=== PATIENT | female | born 1985 | race Caucasian/White ===

== ENCOUNTER → 2016-12-13 | Outpatient (CLI) | payer OTHER ==
--- NOTE | 2016-12-13 17:56 | US ---
EXAMINATION TYPE: US thyroid st tissue head/neck DATE OF EXAM: 12/13/2016 COMPARISON: US CLINICAL HISTORY: Nontoxic Single Thyroid nodule E04.1. GLAND SIZE: Right Lobe: 4.3 x 1.6 x 1.6 cm Overall Parenchyma: heterogenous Left Lobe: 4.1 x 1.5 x 1.4 cm Overall Parenchyma: heterogeneous Isthmus Thickness: 0.4 cm NODULES RIGHT: # of nodules measured on right: 0 LEFT: # of nodules measured on left: 1 1. 0.6 X 0.4 x 0.6 cm hypoechoic solid nodule at the mid/lateral pole with margins. This nodule is wider than tall and shows no intranodular vascularity. Prior size: x x cm ISTHMUS: # of nodules measured in the isthmus: 0 Bilateral neck scanned, no evidence of lymphadenopathy. IMPRESSION: There is a 6 x 4 mm oval-shaped hypoechoic nodule in the posterior left thyroid lobe that is new comp ared to old ultrasound exam on 12/04/2014. No solid thyroid mass. No dominant thyroid mass. It is poss ible this is a parathyroid gland. I have low suspicion of malignancy.
== END | disposition home or self-care (01) ==
LOC: RADUSWWP 17:04
PROVIDERS: ATTEND Family Medicine
DX: E04.1 Nontoxic single thyroid nodule (principal); E06.3 Autoimmune thyroiditis
CPT/HCPCS: 76536

== ENCOUNTER 2016-12-26 15:19 | Emergency (ER) | payer OTHER ==
[2016-12-26 15:25] VITALS: TEMP 98
--- NOTE | 2016-12-26 15:52 | ED ---
Extremity Problem HPI - General Chief complaint: Extremity Problem,Nontraumatic Stated complaint: poss toe infection/fever Time Seen by Provider: 12/26/16 15:32 Source: patient, RN notes reviewed Mode of arrival: ambulatory Limitations: no limitations - History of Present Illness Initial comments: 31-year-old female presents to the emergency Department chief complaint of right toe pain. Patient states she was out about 3 days ago and today she is now swelling and redness to the right toe. Patient states she's noticed some irritation to the right big toe she has noticed an area that appeared to be swollen and some redness and tenderness to touch. Patient denies any drainage or discharge from the area. Patient denies any fever chills with this. Patient denies any history of this past. Patient denies any cuts or scrapes to the toe that she is aware of. Patient denies any recent fever, chills, shortness of breath, chest pain, back pain, abdominal pain, nausea vomiting, numbness or tingling, dysuria or hematuria, constipation or diarrhea, headaches or visual changes, or any other current symptoms. - Related Data Home Medications Medication Instructions Recorded Confirmed Sertraline HCl [Zoloft] 150 mg PO DAILY 12/31/15 12/26/16 Levothyroxine(Unknown) 1 tab PO DAILY 12/26/16 12/26/16 [place](Unknown) 1 tab PO BID 12/26/16 12/26/16 Robaxin(Unknown) 1 tab PO Q8H PRN 12/26/16 12/26/16 Previous Rx's Medication Instructions Recorded Cephalexin [Keflex] 500 mg PO Q6HR #40 cap 12/26/16 Allergies Allergy/AdvReac Type Severity Reaction Status Date / Time clarithromycin [From Biaxin] AdvReac Diarrhea Verified 12/26/16 15:34 Review of Systems ROS Statement: Those systems with pertinent positive or pertinent negative responses have been documented in the HPI. ROS Other: All systems not noted in ROS Statement are negative. Past Medical History Past Medical History: Chest Pain / Angina, Musculoskeletal Disorder Additional Past Medical History / Comment(s): DDD, recurrent back pain, STOMACH ULCERS, Sinus Tachycardia. MARTIN. Dizziness at times, N/T rt buttocks radiating rt leg,feels like muscle spasms in stomach. History of Any Multi-Drug Resistant Organisms: None Reported Past Surgical History: Back Surgery, Section Additional Past Surgical History / Comment(s): 12/31/15 Revision laminectomy discectomy posterior lumbar decompression fusion, transforiminal lumbar interbody fusion L5-S1 with cell saver and NIM cord monitoring. Other SX: pyloric surgery INFANT, low BACK SURGERIES x2, C-Sections x2. Past Anesthesia/Blood Transfusion Reactions: No Reported Reaction Additional Past Anesthesia/Blood Transfusion Reaction / Comment(s): Pt has never recieved blood. Past Psychological History: Anxiety, Depression Smoking Status: Former smoker Past Alcohol Use History: None Reported Past Drug Use History: None Reported - Past Family History Father Family Medical History: Coronary Artery Disease (CAD), Myocardial Infarction ([place] ) Additional Family Medical History / Comment(s): Father has stents. He has back issues. Mother Additional Family Medical History / Comment(s): Mother has a bad back. General Exam - General Exam Comments Initial Comments: General: The patient is awake and alert, in no distress, and does not appear acutely ill. Neck: The neck is supple, there is no tenderness. Cardiovascular: There is a regular rate and rhythm. No murmur, rub or gallop is appreciated. Respiratory: Lungs are clear to auscultation, respirations are non-labored, breath sounds are equal. No wheezes, stridor, rales, or rhonchi. Musculoskeletal: Sensation intact with 2+ pulses in her lower Extremity. Full Range of motion of right foot and all toes. Patient does have erythema to the first digit. This appeared to be some swelling to the medial aspect. Neurological: CN II-XII intact, There are no obvious motor or sensory deficits. Coordination appears grossly intact. Speech is normal. Skin: Skin is warm and dry and no rashes or lesions are noted. Psychiatric: Normal mood and affect. Limitations: no limitations Course Vital Signs 12/26/16 15:23 Temperature 98.0 F Pulse Rate 93 Respiratory 20 Rate Blood Pressure 141/76 O2 Sat by Pulse 98 Oximetry Procedures - Procedures Initial comment: Ears cleaned and prepped. The patient underwent wedge removal for an ingrown toenail. Patient tolerated the procedure well. Minimal bleeding noted. - Nerve Block Consent Obtained: verbal consent Time Out Performed: Yes Local Anesthetic Used: Lidocaine 1% Side: right Nerve Blocks: digital Procedure Successful: Yes Complications: none Patient Tolerated Procedure: well Medical Decision Making - Medical Decision Making 31-year-old female presents for what appears to be a right foot paryonchia. With associated ingrown toenail. This time patient underwent treatment of the area. We did discuss close follow-up return parameters and all questions. Patient stated that she understood and she is agreeable with this plan. This time the patient will be discharged home. Disposition Clinical Impression: Acute paronychia of toe of right foot, Ingrown right big toenail Disposition: HOME SELF-CARE Condition: Stable Instructions: Ingrown Nail (ED), Paronychia (ED) Additional Instructions: Please use medication as discussed. Please follow up with family doctor if symptoms have not improved over the next two days. Please return to the emergency room if your symptoms increase or worsen or for any other concerns. Prescriptions: Cephalexin [Keflex] 500 mg PO Q6HR #40 cap Referrals: Celeste Cheng III, MD [Primary Care Provider] - 1-2 days Time of Disposition: 16:38
--- NOTE | 2016-12-26 16:06 | XR ---
EXAMINATION TYPE: XR toes RT DATE OF EXAM: 12/26/2016 COMPARISON: NONE HISTORY: Pain TECHNIQUE: 3 views of the right great toe are submitted. FINDINGS: No evidence for fracture dislocation or bony lesion. Joint space is intact. IMPRESSION: Negative
[2016-12-26] MEDS ORDERED: CEPHALEXIN 500MG STARTER PACK 4 CAP BTL PO STA (16:51)
[2016-12-26 16:59] VITALS: BP 135/67; PULSE 79; RESP 16
== END 2016-12-26 16:59 | disposition home or self-care (01) ==
LOC: EC 15:19
DX: L60.0 Ingrowing nail (principal); L03.031 Cellulitis of right toe; F41.9 Anxiety disorder, unspecified; F32.9 Major depressive disorder, single episode, unspecified; Z87.891 Personal history of nicotine dependence; Z79.899 Other long term (current) drug therapy; Z88.1 Allergy status to other antibiotic agents
CPT/HCPCS: 11765; 99283

== ENCOUNTER 2017-04-29 17:02 | Observation (INO) | payer OTHER ==
[2017-04-29] MEDS ORDERED: SODIUM CHLORIDE 0.9% 1,000 ML IV STA ×3 (17:31→20:13)
[2017-04-29] MEDS ORDERED: MORPHINE SULFATE 10 MG/ML SYRINGE IV STA (17:31)
[2017-04-29] MEDS ORDERED: ONDANSETRON 4 MG/2 ML VIAL IVP STA ×2 (17:31→20:13)
--- NOTE | 2017-04-29 17:35 | ED ---
General Adult HPI - General Chief complaint: Nausea/Vomiting/Diarrhea Stated complaint: Vomiting/Abd Pain Time Seen by Provider: 04/29/17 17:19 Source: patient, RN notes reviewed, old records reviewed Mode of arrival: wheelchair Limitations: no limitations - History of Present Illness Initial comments: 31-year-old female presents for evaluation of nausea vomiting diarrhea. Patient states proximately 24 hours ago she began having significant amount of diarrhea, greater than 10 episodes. She later developed nausea and vomiting. She is also complaining of crampy abdominal pain which is worse in the left upper quadrant. Patient denies any known sick contacts. She believes she may have eaten some food contaminated with raw meat. Denies fever or chills. Abdominal pain is mild at the time my evaluation. Denies dysuria. Patient has chronic pain secondary to low back surgery, she normally takes [place], she has not had her [place] in 24 hours. - Related Data Home Medications Medication Instructions Recorded Confirmed Sertraline HCl [Zoloft] 150 mg PO DAILY 12/31/15 04/29/17 HYDROcodone/APAP 5-325MG [[place] 1 tab PO Q8H PRN 04/29/17 04/29/17 5-325] Levothyroxine Sodium [Synthroid] 25 mcg PO DAILY 04/29/17 04/29/17 Methocarbamol [Robaxin] 500 mg PO TID 04/29/17 04/29/17 Allergies Allergy/AdvReac Type Severity Reaction Status Date / Time clarithromycin [From Biaxin] AdvReac Diarrhea Verified 04/29/17 17:44 Review of Systems ROS Statement: Those systems with pertinent positive or pertinent negative responses have been documented in the HPI. ROS Other: All systems not noted in ROS Statement are negative. Past Medical History Past Medical History: Chest Pain / Angina, Musculoskeletal Disorder Additional Past Medical History / Comment(s): DDD, recurrent back pain, STOMACH ULCERS, Sinus Tachycardia. MARTIN. Dizziness at times, N/T rt buttocks radiating rt leg,feels like muscle spasms in stomach. History of Any Multi-Drug Resistant Organisms: None Reported Past Surgical History: Back Surgery, Section Additional Past Surgical History / Comment(s): 12/31/15 Revision laminectomy discectomy posterior lumbar decompression fusion, transforiminal lumbar interbody fusion L5-S1 with cell saver and NIM cord monitoring. Other SX: pyloric surgery INFANT, low BACK SURGERIES x2, C-Sections x2. Past Anesthesia/Blood Transfusion Reactions: No Reported Reaction Additional Past Anesthesia/Blood Transfusion Reaction / Comment(s): Pt has never recieved blood. Past Psychological History: Anxiety, Depression Smoking Status: Former smoker Past Alcohol Use History: None Reported Past Drug Use History: None Reported - Past Family History Father Family Medical History: Coronary Artery Disease (CAD), Myocardial Infarction ([place] ) Additional Family Medical History / Comment(s): Father has stents. He has back issues. Mother Additional Family Medical History / Comment(s): Mother has a bad back. General Exam Limitations: no limitations General appearance: alert, in no apparent distress Head exam: Present: atraumatic, normocephalic Eye exam: Present: normal appearance, PERRL ENT exam: Present: normal exam, mucous membranes dry Neck exam: Present: normal inspection. Absent: tenderness, meningismus Respiratory exam: Present: normal lung sounds bilaterally. Absent: respiratory distress, wheezes Cardiovascular Exam: Present: normal rhythm, irregular rhythm GI/Abdominal exam: Present: soft. Absent: distended, tenderness, guarding, rebound Extremities exam: Present: normal inspection, normal capillary refill. Absent: pedal edema Neurological exam: Present: alert, oriented X3. Absent: motor sensory deficit Psychiatric exam: Present: normal affect, normal mood Skin exam: Present: warm, dry, intact. Absent: cyanosis, diaphoretic Course Vital Signs 04/29/17 04/29/17 04/29/17 17:13 18:34 20:03 Temperature 97.7 F 102.0 F H Pulse Rate 128 H 118 H Respiratory 18 16 18 Rate Blood Pressure 131/76 106/53 O2 Sat by Pulse 98 95 Oximetry Medical Decision Making - Medical Decision Making 31-year-old female presenting with nausea vomiting diarrhea abdominal pain. On initial assessment patient does appear quite dehydrated, tachycardic, dry mucous membranes. Laboratory studies reveal mild hyponatremia 135, white blood cell count is elevated at 15.7. Urinalysis shows trace ketones consistent with dehydration, no signs of UTI. X-rays obtained, negative for acute intra- abdominal process. Patient fever, CT is obtained for evaluation of infectious process. This shows diarrhea consistent with gastroenteritis, no appendicitis, no infection of the gallbladder. Patient received 2 L IV hydration, antiemetics , pain medication and antipyretics. On reevaluation patient has persistent nausea and vomiting. She remains tachycardic. She will be admitted for fever control, antiemetics, and IV hydration. Diagnosis: Dehydration, intractable nausea vomiting. Likely viral gastroenteritis. - Lab Data Result diagrams: 04/29/17 17:47 04/29/17 17:47 Lab Results 04/29/17 04/29/17 04/29/17 Range/Units 17:25 17:25 17:47 WBC 15.7 H (3.8-10.6) k/uL RBC 5.20 (3.80-5.40) m/uL Hgb 14.1 (11.4-16.0) gm/dL Hct 44.5 (34.0-46.0) % MCV 85.5 (80.0-100.0) fL MCH 27.0 (25.0-35.0) pg MCHC 31.6 (31.0-37.0) g/dL RDW 16.5 H (11.5-15.5) % Plt Count 306 (150-450) k/uL Neutrophils % 94 % Lymphocytes % 3 % Monocytes % 2 % Eosinophils % 1 % Basophils % 0 % Neutrophils # 14.8 H (1.3-7.7) k/uL Lymphocytes # 0.5 L (1.0-4.8) k/uL Monocytes # 0.2 (0-1.0) k/uL Eosinophils # 0.1 (0-0.7) k/uL Basophils # 0.0 (0-0.2) k/uL Anisocytosis Slight Sodium (137-145) mmol/L Potassium (3.5-5.1) mmol/L Chloride (98-107) mmol/L Carbon Dioxide (22-30) mmol/L Anion Gap mmol/L BUN (7-17) mg/dL Creatinine (0.52-1.04) mg/dL Est GFR (MDRD) Af Amer (>60 ml/min/1.73 sqM) Est GFR (MDRD) Non-Af (>60 ml/min/1.73 sqM) Glucose (74-99) mg/dL Calcium (8.4-10.2) mg/dL Total Bilirubin (0.2-1.3) mg/dL AST (14-36) U/L ALT (9-52) U/L Alkaline Phosphatase (38-126) U/L Total Protein (6.3-8.2) g/dL Albumin (3.5-5.0) g/dL Amylase (30-110) U/L Lipase (23-300) U/L Urine Color Yellow Urine Appearance Clear (Clear) Urine pH 5.5 (5.0-8.0) Ur Specific [place] 1.030 (1.001-1.035) Urine Protein 1+ H (Negative) Urine Glucose (UA) Negative (Negative) Urine Ketones Trace H (Negative) Urine Blood Moderate H (Negative) Urine Nitrite Negative (Negative) Urine Bilirubin Negative (Negative) Urine Urobilinogen 2.0 (<2.0) mg/dL Ur Leukocyte Esterase Negative (Negative) Urine RBC 11 H (0-5) /hpf Urine WBC 1 (0-5) /hpf Ur Squamous Epith Cells 2 (0-4) /hpf Urine Mucus Moderate H (None) /hpf Urine HCG, Qual Not Detected (Not Detectd) 04/29/17 Range/Units 17:47 WBC (3.8-10.6) k/uL RBC (3.80-5.40) m/uL Hgb (11.4-16.0) gm/dL Hct (34.0-46.0) % MCV (80.0-100.0) fL MCH (25.0-35.0) pg MCHC (31.0-37.0) g/dL RDW (11.5-15.5) % Plt Count (150-450) k/uL Neutrophils % % Lymphocytes % % Monocytes % % Eosinophils % % Basophils % % Neutrophils # (1.3-7.7) k/uL Lymphocytes # (1.0-4.8) k/uL Monocytes # (0-1.0) k/uL Eosinophils # (0-0.7) k/uL Basophils # (0-0.2) k/uL Anisocytosis Sodium 135 L (137-145) mmol/L Potassium 3.9 (3.5-5.1) mmol/L Chloride 103 (98-107) mmol/L Carbon Dioxide 16 L (22-30) mmol/L Anion Gap 16 mmol/L BUN 12 (7-17) mg/dL Creatinine 0.70 (0.52-1.04) mg/dL Est GFR (MDRD) Af Amer >60 (>60 ml/min/1.73 sqM) Est GFR (MDRD) Non-Af >60 (>60 ml/min/1.73 sqM) Glucose 155 H (74-99) mg/dL Calcium 9.2 (8.4-10.2) mg/dL Total Bilirubin 1.0 (0.2-1.3) mg/dL AST 21 (14-36) U/L ALT 31 (9-52) U/L Alkaline Phosphatase 68 (38-126) U/L Total Protein 7.5 (6.3-8.2) g/dL Albumin 4.4 (3.5-5.0) g/dL Amylase 31 (30-110) U/L Lipase 55 (23-300) U/L Urine Color Urine Appearance (Clear) Urine pH (5.0-8.0) Ur Specific [place] (1.001-1.035) Urine Protein (Negative) Urine Glucose (UA) (Negative) Urine Ketones (Negative) Urine Blood (Negative) Urine Nitrite (Negative) Urine Bilirubin (Negative) Urine Urobilinogen (<2.0) mg/dL Ur Leukocyte Esterase (Negative) Urine RBC (0-5) /hpf Urine WBC (0-5) /hpf Ur Squamous Epith Cells (0-4) /hpf Urine Mucus (None) /hpf Urine HCG, Qual (Not Detectd) Disposition Clinical Impression: Dehydration, Nausea vomiting and diarrhea Disposition: ADMITTED IP TO THIS [facility] Condition: Stable Referrals: Celeste Cheng III, MD [Primary Care Provider] - 1-2 days Time of Disposition: 21:27
[2017-04-29 17:56] LABS: Appearance,Urine Clear (Clear); Bilirubin,Urine Negative (Negative); Glucose,Urine (UA) Negative (Negative); Ketones,Urine Trace (Negative); Leukocyte Esterase,Urine Negative (Negative); Mucus,Urine Moderate /hpf; Nitrite,Urine Negative (Negative); PH, Urine 5.5 (5.0-8.0); Particle Count 8765; Protein,Urine 1+ (Negative); RBC,Urine 11 /hpf (0-5); Squamous Epithelial Cell,Urine 2 /hpf (0-4); UA Billing (MACRO vs. MICRO) MICRO; WBC,Urine 1 /hpf (0-5)
[2017-04-29 18:02] LABS: Anisocytosis Slight; Basophils % (A) 0 %; CH 27.8; CHCM 32.6; Eosinophils # (A) 0.1 k/uL (0-0.7); Eosinophils % (A) 1 %; HCT 44.5 % (34.0-46.0); HDW 2.67; HGB 14.1 gm/dL (11.4-16.0); Luc # (Auto) 0.04; Luc % (Auto) 0; Lymphocytes # (A) 0.5 k/uL (1.0-4.8); Lymphocytes % (A) 3 %; MCHC 31.6 g/dL (31.0-37.0); MCV 85.5 fL (80.0-100.0); Mean Platelet Volume 7.6; Monocytes # (A) 0.2 k/uL (0-1.0); Monocytes % (A) 2 %; Neutrophils # (A) 14.8 k/uL (1.3-7.7); Neutrophils % (A) 94 %; RDW 16.5 % (11.5-15.5); WBC 15.7 k/uL (3.8-10.6); WBC (Perox) 16.32
[2017-04-29 18:15] LABS: ALT 31 U/L (9-52); AST 21 U/L (14-36); Alkaline Phosphatase 68 U/L (38-126); Amylase 31 U/L (30-110); Anion Gap 16 mmol/L; Blood Urea Nitrogen 12 mg/dL (7-17); Calcium 9.2 mg/dL (8.4-10.2); Carbon Dioxide 16 mmol/L (22-30); Chloride 103 mmol/L (98-107); Glucose 155 mg/dL (74-99); Non-African American GFR(MDRD) >60 (>60 ml/min/1.73 sqM); Potassium 3.9 mmol/L (3.5-5.1); Sodium 135 mmol/L (137-145); Total Protein 7.5 g/dL (6.3-8.2)
--- NOTE | 2017-04-29 19:32 | XR ---
EXAMINATION TYPE: XR KUB DATE OF EXAM: 04/29/2017 COMPARISON: NONE HISTORY: Abdominal pain TECHNIQUE: 2 views FINDINGS: There is no sign of intestinal obstruction or pneumoperitoneum. Fecal pattern is normal. Th ere is no sign of a mass. There is lumbar spine posterior fusion surgery. Lung bases are clear. Ther e are no pathologic calcifications over the kidneys. IMPRESSION: Nonacute abdomen.
[2017-04-29] MEDS ORDERED: MORPHINE SULFATE 10 MG/ML SYRINGE IVP STA (19:57)
[2017-04-29] MEDS ORDERED: ACETAMINOPHEN IV (For NPO) 1,000 MG in EMPTY BAG 1 BAG IVPB ONE (19:57)
[2017-04-29] MEDS ORDERED: RX INFO: IV CONTRAST WAS GIVEN 1 EACH MISC MISCELLANE PRN (20:10)
--- NOTE | 2017-04-29 21:15 | CT ---
EXAMINATION TYPE: CT abdomen pelvis w con DATE OF EXAM: 04/29/2017 COMPARISON: NONE HISTORY: Left sided Abdominal pain with fever CT DLP: 1968.2 mGycm Automated exposure control for dose reduction was used. TECHNIQUE: Helical acquisition of images was performed from the lung bases through the pelvis. CONTRAST: Performed without Oral Contrast and with IV Contrast, patient injected with 100 mL of Omnipaque 300. FINDINGS: Lung bases are clear of infiltrate. There is no pleural effusion. Liver spleen pancreas gallbladder a ppear normal. Bile ducts are not dilated. There is no adrenal mass. Kidneys show satisfactory contrast opacification. There is no hydronephrosi s. There is no retroperitoneal adenopathy. There is no ascites. There is lower lumbar spine posterior fusion surgery. Appendix appears normal. I see no evidence of a bowel obstruction. Bladder distends smoothly. There is no intestinal wall thic kening. There is some fluid in the colon. There is no sign of a pelvic mass. Bony structures appear i ntact. There is a 2 cm area of increased density in the subcutaneous fat over the lower left side of the anterior abdomen that could be an injection site. IMPRESSION: THERE ARE FLUID LEVELS IN THE COLON CONSISTENT WITH SOME DEGREE OF DIARRHEA. OTHERWISE NEGATIVE CT SC AN OF THE ABDOMEN AND PELVIS. NORMAL APPENDIX.
[2017-04-29] MEDS ORDERED: ONDANSETRON 4 MG/2 ML VIAL IVP PRN (21:28)
[2017-04-29] MEDS ORDERED: NALOXONE 0.4 MG/ML 1 ML VIAL IV PRN (21:28)
[2017-04-30] MEDS: MORPHINE SULFATE 10 MG/ML SYRINGE IV PRN ×3 (01:21→13:44)
[2017-04-30] MEDS: ONDANSETRON 4 MG/2 ML VIAL IVP PRN ×2 (01:21→17:13)
[2017-04-30] MEDS: LOPERAMIDE 2 MG CAP PO PRN ×2 (04:23→12:10)
[2017-04-30] MEDS: ACETAMINOPHEN TAB 325 MG TAB PO PRN ×2 (04:23→17:13)
[2017-04-30 08:10] LABS: Basophils % (A) 0 %; CH 27.5; CHCM 32.2; Eosinophils % (A) 0 %; HCT 36.9 % (34.0-46.0); HGB 11.7 gm/dL (11.4-16.0); Luc # (Auto) 0.07; Luc % (Auto) 1; Lymphocytes % (A) 14 %; MCH 27.2 pg (25.0-35.0); MCHC 31.7 g/dL (31.0-37.0); MCV 85.6 fL (80.0-100.0); Mean Platelet Volume 7.1; Monocytes # (A) 0.3 k/uL (0-1.0); Monocytes % (A) 4 %; Neutrophils # (A) 5.8 k/uL (1.3-7.7); Neutrophils % (A) 81 %; RBC 4.32 m/uL (3.80-5.40); RDW 14.9 % (11.5-15.5); WBC 7.2 k/uL (3.8-10.6); WBC (Perox) 7.21
[2017-04-30 08:21] LABS: ALT 27 U/L (9-52); AST 14 U/L (14-36); Alkaline Phosphatase 48 U/L (38-126); Anion Gap 9 mmol/L; Blood Urea Nitrogen 7 mg/dL (7-17); Calcium 7.7 mg/dL (8.4-10.2); Carbon Dioxide 23 mmol/L (22-30); Chloride 104 mmol/L (98-107); Glucose 97 mg/dL (74-99); Magnesium 1.5 mg/dL (1.6-2.3); Non-African American GFR(MDRD) >60 (>60 ml/min/1.73 sqM); Potassium 3.4 mmol/L (3.5-5.1); Sodium 136 mmol/L (137-145); Total Bilirubin 0.6 mg/dL (0.2-1.3); Total Protein 6.1 g/dL (6.3-8.2)
[2017-04-30] MEDS: FAMOTIDINE 20 MG/2 ML VIAL IV SCH ×2 (15:12→20:12)
[2017-04-30] MEDS: MAGNESIUM SULFATE-D5W PMX 1 GM in DEXTROSE/WATER 1 100ML.BAG IVPB SCH ×2 (15:12→16:32)
--- NOTE | 2017-04-30 17:22 | P.HPIM ---
History of Present Illness H&P Date: 04/30/17 Chief Complaint: Nausea vomiting and abdominal pain and diarrhea 31-year-old female with a past medical history of back pain and surgeries, sinus tachycardia and recent throat infection and has completed 7 day course of antibiotics in the form of Augmentin presents for evaluation of nausea vomiting diarrhea. Patient states proximately 24 hours ago she began having significant amount of diarrhea, greater than 10 episodes. She later developed nausea and vomiting. She is also complaining of crampy abdominal pain which is worse in the left upper quadrant. Patient denies any known sick contacts. She believes she may have eaten some food contaminated with raw meat. Denies fever or chills. Abdominal pain is mild at the time my evaluation. Denies dysuria. Patient has chronic pain secondary to low back surgery, she normally takes [employer] , she has not had her [employer] in 24 hours. Review of Systems Constitutional: Patient denies any fever or chills . No generalized weakness or weight loss. Abdomen: Patient does have nausea vomiting, diarrhea and and abdominal pain. Cardiovascular: Patient denies any chest pain or short of breath no palpitations. Respiratory: patient denied any cough is from production. No shortness of breath Neurologic: Patient denied any numbness or tingling headache. Musculoskeletal: Patient denies any complaints of joint swelling or deformity. Skin: Negative Psychiatric: Negative Endocrine: No heat or cold intolerance. No recent weight gain. Genitourinary: No dysuria or hematuria. All other 14 point ROS negative except the above Past Medical History Past Medical History: Chest Pain / Angina, Musculoskeletal Disorder Additional Past Medical History / Comment(s): DDD, recurrent back pain, STOMACH ULCERS, Sinus Tachycardia. MARTIN. Dizziness at times, N/T rt buttocks radiating rt leg,feels like muscle spasms in stomach. History of Any Multi-Drug Resistant Organisms: None Reported Past Surgical History: Back Surgery, Section Additional Past Surgical History / Comment(s): 12/31/15 Revision laminectomy discectomy posterior lumbar decompression fusion, transforiminal lumbar interbody fusion L5-S1 with cell saver and NIM cord monitoring. Other SX: pyloric surgery , low BACK SURGERIES x2, C-Sections x2. Past Anesthesia/Blood Transfusion Reactions: No Reported Reaction Additional Past Anesthesia/Blood Transfusion Reaction / Comment(s): Pt has never recieved blood. Past Psychological History: Anxiety, Depression Additional Psychological History / Comment(s): Pt lives with her 2 children. Her fiancee has a son who comes for visits. She is normally independent. She uses no assistive devices. She has no home care agency. She drives a car. Smoking Status: Never smoker Past Alcohol Use History: None Reported Additional Past Alcohol Use History / Comment(s): Pt started smoking at age 12 yrs. She quit 02/18/15 with one small relapse period. Past Drug Use History: None Reported - Past Family History Father Family Medical History: Coronary Artery Disease (CAD), Myocardial Infarction ([place] ) Additional Family Medical History / Comment(s): Father has stents. He has back issues. Mother Additional Family Medical History / Comment(s): Mother has a bad back. Medications and Allergies Home Medications Medication Instructions Recorded Confirmed Type Sertraline HCl [Zoloft] 150 mg PO DAILY 12/31/15 04/29/17 History HYDROcodone/APAP 5-325MG [[employer] 1 tab PO Q8H PRN 04/29/17 04/29/17 History 5-325] Levothyroxine Sodium [Synthroid] 25 mcg PO DAILY 04/29/17 04/29/17 History Methocarbamol [Robaxin] 500 mg PO TID 04/29/17 04/29/17 History Allergies Allergy/AdvReac Type Severity Reaction Status Date / Time clarithromycin [From Biaxin] AdvReac Diarrhea Verified 04/29/17 17:44 Physical Exam Vitals: Vital Signs Temp Pulse Pulse Resp BP BP Pulse Ox 04/30/17 14:23 100.3 F H 92 20 116/71 94 L 04/30/17 07:00 99.3 F 92 16 97/57 96 04/30/17 00:00 18 04/29/17 23:00 97.3 F L 91 20 119/67 96 04/29/17 21:30 98.5 F 95 18 117/55 95 04/29/17 20:03 102.0 F H 118 H 18 106/53 95 04/29/17 18:34 16 04/29/17 17:13 97.7 F 128 H 18 131/76 98 Intake and Output 04/30/17 04/30/17 04/30/17 06:59 14:59 22:59 Intake Total 0 Output Total 4 Balance -4 Intake: Oral 0 Output: Urine/Stool Mix 3 Emesis 1 Other: Voiding Method Toilet Toilet # Voids 3 2 # Bowel Movements 3 Weight 101.151 kg PHYSICAL EXAMINATION: Patient is lying in the bed comfortably, no acute distress, awake alert and oriented.. HEENT: Normocephalic. Neck is supple. Pupils reactive. Nostrils clear. Oral cavity is moist. Ears reveal no drainage. Neck reveals no JVD, carotid bruits, or thyromegaly. CHEST EXAMINATION: Trachea is central. Symmetrical expansion. Lung khan clear to auscultation and percussion. CARDIAC: Normal S1, S2 with no gallops. No murmurs ABDOMEN: Soft. Bowel sounds normal. No organomegaly. No abdominal bruits. Extremities: reveal no edema. No clubbing or cyanosis Neurologically awake, alert, oriented x3 with well-coordinated movements. No focal deficits noted Skin: No rash or skin lesions. Psychiatric: Operative. Nonsuicidal Musculoskeletal: No joint swelling or deformity. Normal range of motion. Results CBC & Chem 7: 04/30/17 07:23 04/30/17 07:23 Labs: Abnormal Lab Results - Last 24 Hours (Table) 04/29/17 04/29/17 04/29/17 Range/Units 17:25 17:47 17:47 WBC 15.7 H (3.8-10.6) k/uL RDW 16.5 H (11.5-15.5) % Neutrophils # 14.8 H (1.3-7.7) k/uL Lymphocytes # 0.5 L (1.0-4.8) k/uL Sodium 135 L (137-145) mmol/L Potassium (3.5-5.1) mmol/L Carbon Dioxide 16 L (22-30) mmol/L Glucose 155 H (74-99) mg/dL Calcium (8.4-10.2) mg/dL Magnesium (1.6-2.3) mg/dL Total Protein (6.3-8.2) g/dL Albumin (3.5-5.0) g/dL Urine Protein 1+ H (Negative) Urine Ketones Trace H (Negative) Urine Blood Moderate H (Negative) Urine RBC 11 H (0-5) /hpf Urine Mucus Moderate H (None) /hpf 04/30/17 Range/Units 07:23 WBC (3.8-10.6) k/uL RDW (11.5-15.5) % Neutrophils # (1.3-7.7) k/uL Lymphocytes # (1.0-4.8) k/uL Sodium 136 L (137-145) mmol/L Potassium 3.4 L (3.5-5.1) mmol/L Carbon Dioxide (22-30) mmol/L Glucose (74-99) mg/dL Calcium 7.7 L (8.4-10.2) mg/dL Magnesium 1.5 L (1.6-2.3) mg/dL Total Protein 6.1 L (6.3-8.2) g/dL Albumin 3.3 L (3.5-5.0) g/dL Urine Protein (Negative) Urine Ketones (Negative) Urine Blood (Negative) Urine RBC (0-5) /hpf Urine Mucus (None) /hpf Thrombosis Risk Factor Assmnt - Choose All That Apply Any of the Below Risk Factors Present?: Yes Each Factor Represents 1 point: Obesity (BMI >25) Other Risk Factors: No Thrombosis Risk Factor Assessment Total Risk Factor Score: 1 Thrombosis Risk Factor Assessment Level: Low Risk Assessment and Plan Assessment: #1 intractable nausea vomiting abdominal pain and diarrhea likely due to antibiotic related gastritis versus gastroenteritis #2 chronic back pain #3 status tachycardia history #4 history of gastric ulcer #5 mild obesity with BMI of 43.6 Plan: Patient will be continued on IV hydration and antiemetics in the form of Zofran and also will be started on Zantac IV twice a day. Patient is currently nothing by mouth and liquid diet will be started once symptomatically improves. We will continue this for chronic management and follow up closely. Further recommendations based on the clinical course.
[2017-04-30] MEDS: SODIUM CHLORIDE 0.9% 1,000 ML IV SCH (18:25)
[2017-04-30] MEDS: SERTRALINE 100 MG TAB PO SCH (22:51)
[2017-05-01] MEDS: ACETAMINOPHEN TAB 325 MG TAB PO PRN ×2 (01:23→08:29)
[2017-05-01 07:33] VITALS: RESP 16
[2017-05-01] MEDS: SODIUM CHLORIDE 0.9% 1,000 ML IV SCH (08:23)
[2017-05-01] MEDS: FAMOTIDINE 20 MG/2 ML VIAL IV SCH (08:23)
[2017-05-01] MEDS: SERTRALINE 100 MG TAB PO SCH (08:23)
[2017-05-01] MEDS: ONDANSETRON 4 MG/2 ML VIAL IVP PRN (13:09)
--- NOTE | 2017-05-01 13:22 | XR ---
EXAMINATION TYPE: XR chest 1V DATE OF EXAM: 05/01/2017 HISTORY: chest tightness. REFERENCE: Previous study dated 2015. FINDINGS: The lungs are clear. Pleural space are clear. The heart is not enlarged. IMPRESSION: NO ACUTE INTRATHORACIC ABNORMALITY.
[2017-05-01 14:39] VITALS: BP 116/70; PULSE 82; TEMP 97
--- NOTE | 2017-05-02 01:20 | P.DS ---
Providers Date of admission: 04/29/17 21:28 Expected date of discharge: 05/01/17 Attending physician: Eldon Mock Primary care physician: Celeste Cordero [facility] Course: Discharge diagnosis #1 intractable nausea vomiting abdominal pain and diarrhea likely due to antibiotic related gastritis versus gastroenteritis #2 chronic back pain #3 status tachycardia history #4 history of gastric ulcer #5 mild obesity with BMI of 43.6 Hospital course 31-year-old female with a past medical history of back pain and surgeries, sinus tachycardia and recent throat infection and has completed 7 day course of antibiotics in the form of Augmentin presents for evaluation of nausea vomiting diarrhea. Patient states proximately 24 hours ago she began having significant amount of diarrhea, greater than 10 episodes. She later developed nausea and vomiting. She is also complaining of crampy abdominal pain which is worse in the left upper quadrant. Patient denies any known sick contacts. She believes she may have eaten some food contaminated with raw meat. Denies fever or chills. Abdominal pain is mild at the time my evaluation. Denies dysuria. Patient has chronic pain secondary to low back surgery, she normally takes Panacea , she has not had her Panacea in 24 hours. On 05/01/2017 Patient did improve symptomatically. Nausea vomiting improved patient is able to tolerate oral diet. Patient did complain of constipation today which has been improved with prune juice and had a bowel movement today. Otherwise patient is also complaining of chest tightness. Chest x-ray was ordered showed no evidence of pneumonia. Otherwise patient is tolerating diet and is stable to discharge home. Patient was continued on IV hydration and antiemetics in the form of Zofran and also will be started on Zantac IV twice a day. Additionally initially kept on nothing by mouth and started on liquid diet once clinically improved. Advanced as tolerated. Patient will be continued on Zantac at home for 2 weeks. Patient was advised to follow with primary physician. Otherwise patient is stable to be discharged home. PHYSICAL EXAMINATION: Patient is lying in the bed comfortably, no acute distress, awake alert and oriented.. HEENT: Normocephalic. Neck is supple. Pupils reactive. Nostrils clear. Oral cavity is moist. Ears reveal no drainage. Neck reveals no JVD, carotid bruits, or thyromegaly. CHEST EXAMINATION: Trachea is central. Symmetrical expansion. Lung khan clear to auscultation and percussion. CARDIAC: Normal S1, S2 with no gallops. No murmurs ABDOMEN: Soft. Bowel sounds normal. No organomegaly. No abdominal bruits. Extremities: reveal no edema. No clubbing or cyanosis Neurologically awake, alert, oriented x3 with well-coordinated movements. No focal deficits noted Skin: No rash or skin lesions. Psychiatric: Operative. Nonsuicidal Musculoskeletal: No joint swelling or deformity. Normal range of motion. Total time taken greater than 35 minutes including 18 minutes for counseling and coordination of care. Patient Condition at Discharge: Stable Plan - Discharge Summary New Discharge Prescriptions: New Ranitidine HCl [Zantac] 150 mg PO BID #30 tab Continue Sertraline HCl [Zoloft] 150 mg PO DAILY Methocarbamol [Robaxin] 500 mg PO TID Levothyroxine Sodium [Synthroid] 25 mcg PO DAILY HYDROcodone/APAP 5-325MG [[place] 5-325] 1 tab PO Q8H PRN PRN Reason: Pain Discharge Medication List Sertraline HCl [Zoloft] 150 mg PO DAILY 12/31/15 [History] HYDROcodone/APAP 5-325MG [Panacea 5-325] 1 tab PO Q8H PRN 04/29/17 [History] Levothyroxine Sodium [Synthroid] 25 mcg PO DAILY 04/29/17 [History] Methocarbamol [Robaxin] 500 mg PO TID 04/29/17 [History] Ranitidine HCl [Zantac] 150 mg PO BID #30 tab 05/01/17 [Rx] Follow up Appointment(s)/Referral(s): Celeste Cheng III, MD [Primary Care Provider] - 1-2 days Activity/Diet/Wound Care/Special Instructions: FOLLOW UP WITH PRIMARY PHYSICIAN WITHIN 3 D Discharge Disposition: HOME SELF-CARE
== END 2017-05-01 15:48 | disposition home or self-care (01) ==
LOC: EC 17:02 → 4MS4W 21:28
PROVIDERS: ADMIT Hospitalist; ATTEND Hospitalist
DX: R11.2 Nausea with vomiting, unspecified (principal); R10.12 Left upper quadrant pain; R07.89 Other chest pain; E87.1 Hypo-osmolality and hyponatremia; K59.00 Constipation, unspecified; E86.0 Dehydration; R19.7 Diarrhea, unspecified; F41.9 Anxiety disorder, unspecified; F32.9 Major depressive disorder, single episode, unspecified; G89.29 Other chronic pain; M54.5 Low back pain; R00.0 Tachycardia, unspecified; Z87.11 Personal history of peptic ulcer disease; E66.9 Obesity, unspecified; Z68.41 Body mass index [BMI] 40.0-44.9, adult; Z82.49 Family history of ischemic heart disease and other diseases of the circulatory system; Z79.899 Other long term (current) drug therapy; Z88.1 Allergy status to other antibiotic agents; Z87.891 Personal history of nicotine dependence; K52.9 Noninfective gastroenteritis and colitis, unspecified; K29.70 Gastritis, unspecified, without bleeding; T36.95XA Adverse effect of unspecified systemic antibiotic, initial encounter
CPT/HCPCS: 99285; 96365 ×2; 96375 ×4; 96376 ×5; 96361 ×6; 96366; 96367; 36415; 80053 ×2; 82150; 83605; 83690; 83735; 85025 ×2; 81001; 81025; 87040; 87324; 87502; 71010; 74000; 74177; G0378 ×3; J2270 ×2; J2405 ×3; J3475; Q9967; J0131

== ENCOUNTER 2017-07-06 14:40 | Emergency (ER) | payer OTHER ==
[2017-07-06 14:47] VITALS: TEMP 97
[2017-07-06] MEDS ORDERED: HYDROmorphone 1 MG/ML 1 ML SYRINGE IVP STA ×2 (15:13→17:25)
[2017-07-06] MEDS ORDERED: ONDANSETRON 4 MG/2 ML VIAL IVP STA ×2 (15:13→17:24)
[2017-07-06] MEDS ORDERED: SODIUM CHLORIDE 0.9% 500 ML IV STA (15:13)
[2017-07-06] MEDS ORDERED: SODIUM CHLORIDE 0.9% 1,000 ML IV STA (15:13)
[2017-07-06 15:30] LABS: Anisocytosis Slight; Basophils % (A) 0 %; Eosinophils # (A) 0.2 k/uL (0-0.7); Eosinophils % (A) 2 %; HCT 43.3 % (34.0-46.0); HGB 13.9 gm/dL (11.4-16.0); Lymphocytes # (A) 0.7 k/uL (1.0-4.8); Lymphocytes % (A) 5 %; MCV 81.4 fL (80.0-100.0); Mean Platelet Volume 7.8; Monocytes # (A) 0.3 k/uL (0-1.0); Monocytes % (A) 2 %; Neutrophils # (A) 13.5 k/uL (1.3-7.7); Neutrophils % (A) 91 %; Platelet Count 326 k/uL (150-450); RBC 5.32 m/uL (3.80-5.40); RDW 16.3 % (11.5-15.5); WBC 14.7 k/uL (3.8-10.6)
[2017-07-06 15:41] LABS: ALT 31 U/L (9-52); AST 20 U/L (14-36); Albumin 4.6 g/dL (3.5-5.0); Alkaline Phosphatase 61 U/L (38-126); Anion Gap 14 mmol/L; Blood Urea Nitrogen 13 mg/dL (7-17); Calcium 9.4 mg/dL (8.4-10.2); Carbon Dioxide 23 mmol/L (22-30); Chloride 99 mmol/L (98-107); Glucose 126 mg/dL (74-99); Magnesium 1.5 mg/dL (1.6-2.3); Phosphorus 2.1 mg/dL (2.5-4.5); Potassium 4.4 mmol/L (3.5-5.1); Sodium 136 mmol/L (137-145); Total Bilirubin 1.3 mg/dL (0.2-1.3); Total Protein 7.4 g/dL (6.3-8.2)
[2017-07-06 15:51] LABS: Appearance,Urine Clear (Clear); Bilirubin,Urine Negative (Negative); Blood,Urine Negative (Negative); Color,Urine Yellow; Glucose,Urine (UA) Negative (Negative); Ketones,Urine Negative (Negative); Leukocyte Esterase,Urine Negative (Negative); Nitrite,Urine Negative (Negative); Protein,Urine Trace (Negative); Specific Gravity,Urine 1.023 (1.001-1.035); Urobilinogen,Urine <2.0 mg/dL (<2.0)
--- NOTE | 2017-07-06 17:32 | ED ---
General Adult HPI - General Chief complaint: Nausea/Vomiting/Diarrhea Stated complaint: vomiting/SOB Time Seen by Provider: 07/06/17 14:52 Source: patient Mode of arrival: wheelchair Limitations: no limitations - History of Present Illness Initial comments: This is a 31-year-old female to the ER for evaluation nausea vomiting abdominal pain, patient has significant medical history with back pain and back surgery. Patient states she has had prior similar symptoms with nausea vomiting, patient' s pain is increasing nausea is increasing and actively vomiting on arrival to emergency room. Patient denies fever no vomiting of blood. No recent travel history or sick contacts - Related Data Home Medications Medication Instructions Recorded Confirmed Sertraline HCl [Zoloft] 150 mg PO DAILY 12/31/15 07/06/17 HYDROcodone/APAP 5-325MG [[place] 1 tab PO Q8H PRN 04/29/17 07/06/17 5-325] Levothyroxine Sodium [Synthroid] 25 mcg PO DAILY 04/29/17 07/06/17 Methocarbamol [Robaxin] 500 mg PO TID PRN 04/29/17 07/06/17 Ranitidine HCl [Zantac] 150 mg PO BID 07/06/17 07/06/17 Previous Rx's Medication Instructions Recorded Ondansetron Odt [Zofran ODT] 4 mg PO Q8HR PRN #30 tab 07/06/17 Allergies Allergy/AdvReac Type Severity Reaction Status Date / Time clarithromycin [From Biaxin] AdvReac Diarrhea Verified 07/06/17 15:40 Review of Systems ROS Statement: Those systems with pertinent positive or pertinent negative responses have been documented in the HPI. ROS Other: All systems not noted in ROS Statement are negative. Past Medical History Past Medical History: Chest Pain / Angina, Musculoskeletal Disorder Additional Past Medical History / Comment(s): DDD, recurrent back pain, STOMACH ULCERS, Sinus Tachycardia. MARTIN. Dizziness at times, N/T rt buttocks radiating rt leg,feels like muscle spasms in stomach. History of Any Multi-Drug Resistant Organisms: None Reported Past Surgical History: Back Surgery, Section Additional Past Surgical History / Comment(s): 12/31/15 Revision laminectomy discectomy posterior lumbar decompression fusion, transforiminal lumbar interbody fusion L5-S1 with cell saver and NIM cord monitoring. Other SX: pyloric surgery , low BACK SURGERIES x2, C-Sections x2. Past Anesthesia/Blood Transfusion Reactions: No Reported Reaction Additional Past Anesthesia/Blood Transfusion Reaction / Comment(s): Pt has never recieved blood. Past Psychological History: Anxiety, Depression Smoking Status: Never smoker Past Alcohol Use History: None Reported Past Drug Use History: None Reported - Past Family History Father Family Medical History: Coronary Artery Disease (CAD), Myocardial Infarction ([place] ) Additional Family Medical History / Comment(s): Father has stents. He has back issues. Mother Additional Family Medical History / Comment(s): Mother has a bad back. General Exam Limitations: no limitations General appearance: alert, in no apparent distress Head exam: Present: atraumatic, normocephalic, normal inspection Eye exam: Present: normal appearance, PERRL, EOMI. Absent: scleral icterus, conjunctival injection, periorbital swelling ENT exam: Present: normal exam, mucous membranes moist Neck exam: Present: normal inspection. Absent: tenderness, meningismus, lymphadenopathy Respiratory exam: Present: normal lung sounds bilaterally. Absent: respiratory distress, wheezes, rales, rhonchi, stridor Cardiovascular Exam: Present: regular rate, normal rhythm, normal heart sounds. Absent: systolic murmur, diastolic murmur, rubs, gallop, clicks GI/Abdominal exam: Present: soft, normal bowel sounds. Absent: distended, tenderness, guarding, rebound, rigid Extremities exam: Present: normal inspection, full ROM, normal capillary refill. Absent: tenderness, pedal edema, joint swelling, calf tenderness Back exam: Present: normal inspection Neurological exam: Present: alert, oriented X3, CN II-XII intact Psychiatric exam: Present: normal affect, normal mood Skin exam: Present: warm, dry, intact, normal color. Absent: rash Course Vital Signs 07/06/17 14:44 Temperature 97.0 F L Pulse Rate 100 Respiratory 20 Rate Blood Pressure 121/66 O2 Sat by Pulse 99 Oximetry - Reevaluation(s) Reevaluation #1: 07/06/17 17:39 A she has significant significant recurrence of pain, patient states she was having dream which caused her to fall off cart, she denies injury from fall, having no new pain Reevaluation #2: 07/06/17 17:40 Patient reassessed, no pain, symptoms improved, no active nausea or vomiting Reevaluation #3: 07/06/17 17:40 Medical record and prior symptoms are reviewed Medical Decision Making - Medical Decision Making 31 female to ER for evaluation nausea vomiting intractable, recent ER visit for similar, patient of this time has adequate pain control regarding chronic back pain secondary to back surgery, patient has no significant symptoms neurologically at this time. Can be discharged home - Lab Data Result diagrams: 07/06/17 15:16 07/06/17 15:16 Lab Results 07/06/17 07/06/17 07/06/17 Range/Units 15:16 15:16 15:30 WBC 14.7 H (3.8-10.6) k/uL RBC 5.32 (3.80-5.40) m/uL Hgb 13.9 (11.4-16.0) gm/dL Hct 43.3 (34.0-46.0) % MCV 81.4 (80.0-100.0) fL MCH 26.0 (25.0-35.0) pg MCHC 32.0 (31.0-37.0) g/dL RDW 16.3 H (11.5-15.5) % Plt Count 326 (150-450) k/uL Neutrophils % 91 % Lymphocytes % 5 % Monocytes % 2 % Eosinophils % 2 % Basophils % 0 % Neutrophils # 13.5 H (1.3-7.7) k/uL Lymphocytes # 0.7 L (1.0-4.8) k/uL Monocytes # 0.3 (0-1.0) k/uL Eosinophils # 0.2 (0-0.7) k/uL Basophils # 0.0 (0-0.2) k/uL Anisocytosis Slight Sodium 136 L (137-145) mmol/L Potassium 4.4 (3.5-5.1) mmol/L Chloride 99 (98-107) mmol/L Carbon Dioxide 23 (22-30) mmol/L Anion Gap 14 mmol/L BUN 13 (7-17) mg/dL Creatinine 0.64 (0.52-1.04) mg/dL Est GFR (MDRD) Af Amer >60 (>60 ml/min/1.73 sqM) Est GFR (MDRD) Non-Af >60 (>60 ml/min/1.73 sqM) Glucose 126 H (74-99) mg/dL Calcium 9.4 (8.4-10.2) mg/dL Phosphorus 2.1 L (2.5-4.5) mg/dL Magnesium 1.5 L (1.6-2.3) mg/dL Total Bilirubin 1.3 (0.2-1.3) mg/dL AST 20 (14-36) U/L ALT 31 (9-52) U/L Alkaline Phosphatase 61 (38-126) U/L Total Protein 7.4 (6.3-8.2) g/dL Albumin 4.6 (3.5-5.0) g/dL Urine Color Yellow Urine Appearance Clear (Clear) Urine pH 8.0 (5.0-8.0) Ur Specific [place] 1.023 (1.001-1.035) Urine Protein Trace H (Negative) Urine Glucose (UA) Negative (Negative) Urine Ketones Negative (Negative) Urine Blood Negative (Negative) Urine Nitrite Negative (Negative) Urine Bilirubin Negative (Negative) Urine Urobilinogen <2.0 (<2.0) mg/dL Ur Leukocyte Esterase Negative (Negative) Disposition Clinical Impression: Nausea vomiting and diarrhea Disposition: HOME SELF-CARE Condition: Good Instructions: Acute Nausea and Vomiting (ED) Referrals: Celeste Cheng III, MD [Primary Care Provider] - 1-2 days
[2017-07-06 17:49] VITALS: BP 133/74; PULSE 127; RESP 17
== END 2017-07-06 17:55 | disposition home or self-care (01) ==
LOC: EC 14:40
DX: R11.2 Nausea with vomiting, unspecified (principal); R19.7 Diarrhea, unspecified; R10.9 Unspecified abdominal pain; F32.9 Major depressive disorder, single episode, unspecified; F41.9 Anxiety disorder, unspecified; Z79.899 Other long term (current) drug therapy; Z88.1 Allergy status to other antibiotic agents
CPT/HCPCS: 36415; 80053; 83735; 84100; 85025; 81003; 87086; 99284; 96374; 96375; 96376 ×2; 96361 ×2; J2405; J1170

== ENCOUNTER → 2017-08-09 | Outpatient (CLI) | payer OTHER ==
--- NOTE | 2017-08-09 15:25 | CT ---
EXAMINATION TYPE: CT abdomen pelvis w con DATE OF EXAM: 08/09/2017 COMPARISON: April 29, 2017 HISTORY: Patient complains of generalized abdominal pain, nausea, vomiting, diarrhea, and gastroesoph ageal reflux. CT DLP: 1541 mGycm CONTRAST: CT scan of the abdomen and pelvis is performed with Oral Contrast and with IV Contrast, patient injec andrzej with 100 mL of Omnipaque 300. FINDINGS: LUNG BASES-: No visible nodule. No infiltrate. LIVER/GB: No calcified gallstones. No space occupying hepatic lesion. Biliary tree is of normal ca liber. PANCREAS: No inflammation. No distinct mass. SPLEEN: No splenic enlargement. No lesion seen. ADRENALS: No nodule. No thickening. KIDNEYS/BLADDER: No hydronephrosis. No nephrolithiasis. No distinct renal mass. Urinary bladder g rossly unremarkable. BOWEL: Normal appendix. There is wall thickening involving the ascending colon which may reflect coli tis. The remainder of the colon and small bowel are unremarkable. GENITAL ORGANS: Lobulated appearance of the uterus may reflect underlying leiomyomatous change. Hypo attenuating lesion right ovary measures 2.3 cm and may reflect functional ovarian cysts. This could b e confirmed with ultrasound if felt indicated. No left adnexal lesion seen. LYMPH NODES: No greater than 1cm abdominal or pelvic lymph nodes are appreciated. AORTA: No significant abnormality. OSSEOUS STRUCTURES: Postoperative changes lumbar spine L5-S1. OTHER: No significant additional abnormality is seen. IMPRESSION: 1. Correlate for colitis of the ascending colon. 2. I cannot exclude leiomyomatous change of the uterus. 3. Probable right ovarian functional ovarian cysts.
== END | disposition home or self-care (01) ==
LOC: RADCTMAIN 13:19
PROVIDERS: ATTEND Family Medicine
DX: R10.9 Unspecified abdominal pain (principal); K21.9 Gastro-esophageal reflux disease without esophagitis; R19.7 Diarrhea, unspecified
CPT/HCPCS: 74177; Q9967

== ENCOUNTER → 2018-05-04 | Outpatient (CLI) | payer OTHER ==
--- NOTE | 2018-05-05 08:59 | US ---
EXAMINATION TYPE: US thyroid st tissue head/neck DATE OF EXAM: 05/04/2018 COMPARISON: Ultrasound 12/13/2016 CLINICAL HISTORY: E06.3 Autoimmune thyroiditis. Patient states having a course voice x 3 months. Hx o f thyroid nodule. No hx of bx GLAND SIZE: Right Lobe: 4.6 x 1.8 x 1.9 cm Overall Parenchyma: heterogenous Left Lobe: 4.3 x 1.5 x 1.8 cm Overall Parenchyma: heterogeneous Isthmus Thickness: 0.4 cm NODULES RIGHT: # of nodules measured on right: 0 LEFT: # of nodules measured on left: 1 1. 0.7 X 0.4 x 0.5 cm hypoechoic solid nodule at the mid/lateral pole with well-defined margins. T his nodule is wider than tall and shows intranodular vascularity. Prior size: 0.6 x 0.4 x 0.6 cm ISTHMUS: # of nodules measured in the isthmus: 0 Bilateral neck scanned, no evidence of lymphadenopathy. IMPRESSION: 1. Subcentimeter left lobe thyroid nodule. Exam is stable from comparison.
== END | disposition home or self-care (01) ==
LOC: RADUSWWP 17:10
PROVIDERS: ATTEND Family Medicine
DX: E04.1 Nontoxic single thyroid nodule (principal)
CPT/HCPCS: 76536

== ENCOUNTER 2018-09-16 09:24 | Emergency (ER) | payer OTHER ==
[2018-09-16 09:27] VITALS: RESP 18
[2018-09-16] MEDS ORDERED: SODIUM CHLORIDE 0.9% 1,000 ML IV STA (10:20)
--- NOTE | 2018-09-16 10:24 | ED ---
General Adult HPI - General Chief complaint: Abdominal Pain Stated complaint: Abd.pain Time Seen by Provider: 09/16/18 09:43 Source: patient Mode of arrival: ambulatory Limitations: no limitations - History of Present Illness Initial comments: Dictation was produced using [employer] dictation software. please excuse any grammatical, word or spelling errors. Chief Complaint: 33-year-old female with past medical history of degenerative disc disease presents with 1 day of acute abdominal pain. History of Present Illness: 33-year-old female. She presents today with acute abdominal pain. She states the pain is severe and localized to her periumbilical region. She states that yesterday she felt well. She woke this morning with intense diffuse abdominal pain. Denies any nausea or vomiting. She has been having soft stools. No diarrhea. Denies any overt sick contacts. Patient has had abdominal cyst diagnosed and operated on as a pediatric patient. Patient also has had and back surgery. Patient states that her symptoms are worse with movement. She reports that the worst of it is in the periumbilical region. She states that started in the suprapubic area and began migrating upwards to her upper abdomen. The ROS documented in this emergency department record has been reviewed and confirmed by me. Those systems with pertinent positive or negative responses have been documented in the HPI. All other systems are other negative and/or noncontributory. PHYSICAL EXAM: General Impression: Alert and oriented x3, acute distress secondary to pain, smells of marijuana HEENT: Normocephalic atraumatic, extra-ocular movements intact, pupils equal and reactive to light bilaterally, mucous membranes moist. Cardiovascular: Heart regular rate and rhythm, S1&S2 audible, no murmurs, rubs or gallops Chest: Lungs clear to auscultation bilaterally, no rhonchi, no wheeze, no rales Abdomen: Diffuse abdominal tenderness, no distention, abdomen soft Musculoskeletal: Pulses present and equal in all extremities, no peripheral edema Motor: no focal deficits noted Neurological: CN II-XII grossly intact, no focal motor or sensory deficits noted Skin: Intact with no visualized rashes ED course: 33-year-old female presents with severe abdominal pain. Vital signs upon arrival shows heart rate of 15. Patient appears somewhat this time. Patient offered analgesia however she refused stating that she does not trust medications. Laboratory evaluation obtained. Leukocytosis of 0.8. Rest of CBC is unremarkable. Coag panel is unremarkable. Metabolic panel is unremarkable. Urinalysis is unremarkable. Patient initially refuses IV analgesia however after several minutes she felt that the pain was unbearable she was amenable to Toradol. Patient given Toradol with persistent symptoms. Given degree of symptoms CT abdomen and pelvis was obtained showing 3 cm right adnexal cyst. There was concern of uterine fibroids. Patient is reevaluated and continued to have persistent symptoms. Patient was given IV morphine because she felt that the Toradol did not help at all. Patient continues to still have pain. Transvaginal ultrasound was obtained showing 5 cm x 3 sent in by 4 cm right ovary. There was good color waveform Doppler to bilateral ovaries. Discussed patient case with Dr. Hoffman who is willing to see the patient in the emergency department for further recommendations. Patient refusing PO analgesia prescription. By mouth analgesia. she does have a follow appointment with obgyn. patient understandable and agreeable to disposition. Patient was evaluated by Dr. Hoffman at bedside. Dr. Hoffman was not concerned given that the cyst was well below 5 cm. Ultrasound did not suggest torsion of the ovary. - Related Data Home Medications Medication Instructions Recorded Confirmed Sertraline HCl [Zoloft] 150 mg PO DAILY 12/31/15 09/16/18 Levothyroxine Sodium [Synthroid] 25 mcg PO DAILY 04/29/17 09/16/18 Albuterol Inhaler [Ventolin Hfa 2 puff INHALATION RT-Q6H PRN 09/16/18 09/16/18 Inhaler] Dextroamphetamine/Amphetamine 20 mg PO QAM 09/16/18 09/16/18 [Adderall Xr] Ergocalciferol [Vitamin D2] 50,000 unit PO FR 09/16/18 09/16/18 Allergies Allergy/AdvReac Type Severity Reaction Status Date / Time clarithromycin [From Biaxin] AdvReac Diarrhea Verified 09/16/18 10:31 Review of Systems ROS Statement: Those systems with pertinent positive or pertinent negative responses have been documented in the HPI. ROS Other: All systems not noted in ROS Statement are negative. Past Medical History Past Medical History: Chest Pain / Angina, Musculoskeletal Disorder Additional Past Medical History / Comment(s): DDD, recurrent back pain, STOMACH ULCERS, Sinus Tachycardia. MARTIN. Dizziness at times, N/T rt buttocks radiating rt leg,feels like muscle spasms in stomach. History of Any Multi-Drug Resistant Organisms: None Reported Past Surgical History: Back Surgery, Section Additional Past Surgical History / Comment(s): 12/31/15 Revision laminectomy disc ectomy posterior lumbar decompression fusion, transforiminal lumbar interbody fusion L5-S1 with cell saver and NIM cord monitoring. Other SX: pyloric surgery , low BACK SURGERIES x2, C-Sections x2. Past Anesthesia/Blood Transfusion Reactions: No Reported Reaction Additional Past Anesthesia/Blood Transfusion Reaction / Comment(s): Pt has never recieved blood. Past Psychological History: Anxiety, Depression Smoking Status: Current every day smoker Past Alcohol Use History: None Reported Past Drug Use History: Marijuana - Past Family History Father Family Medical History: Coronary Artery Disease (CAD), Myocardial Infarction ([place]) Additional Family Medical History / Comment(s): Father has stents. He has back issues. Mother Additional Family Medical History / Comment(s): Mother has a bad back. General Exam Limitations: no limitations Course Vital Signs 09/16/18 09:25 Temperature 98.0 F Pulse Rate 105 H Respiratory 18 Rate Blood Pressure 151/74 O2 Sat by Pulse 100 Oximetry Medical Decision Making - Lab Data Result diagrams: 09/16/18 10:50 09/16/18 10:50 Lab Results 09/16/18 09/16/18 09/16/18 Range/Units 10:07 10:50 10:50 WBC 12.8 H (3.8-10.6) k/uL RBC 4.89 (3.80-5.40) m/uL Hgb 12.6 (11.4-16.0) gm/dL Hct 38.7 (34.0-46.0) % MCV 79.0 L (80.0-100.0) fL MCH 25.7 (25.0-35.0) pg MCHC 32.5 (31.0-37.0) g/dL RDW 15.7 H (11.5-15.5) % Plt Count 330 (150-450) k/uL Neutrophils % 78 % Lymphocytes % 16 % Monocytes % 4 % Eosinophils % 2 % Basophils % 0 % Neutrophils # 9.9 H (1.3-7.7) k/uL Lymphocytes # 2.0 (1.0-4.8) k/uL Monocytes # 0.5 (0-1.0) k/uL Eosinophils # 0.2 (0-0.7) k/uL Basophils # 0.0 (0-0.2) k/uL PT (9.0-12.0) sec INR (<1.2) Sodium 137 (137-145) mmol/L Potassium 4.6 (3.5-5.1) mmol/L Chloride 104 (98-107) mmol/L Carbon Dioxide 23 (22-30) mmol/L Anion Gap 10 mmol/L BUN 10 (7-17) mg/dL Creatinine 0.49 L (0.52-1.04) mg/dL Est GFR (CKD-EPI)AfAm >90 (>60 ml/min/1.73 sqM) Est GFR (CKD-EPI)NonAf >90 (>60 ml/min/1.73 sqM) Glucose 99 (74-99) mg/dL Calcium 9.2 (8.4-10.2) mg/dL Total Bilirubin 0.7 (0.2-1.3) mg/dL AST 15 (14-36) U/L ALT 22 (9-52) U/L Alkaline Phosphatase 61 (38-126) U/L Total Protein 7.2 (6.3-8.2) g/dL Albumin 4.1 (3.5-5.0) g/dL Lipase 43 (23-300) U/L Urine Color Urine Appearance (Clear) Urine pH (5.0-8.0) Ur Specific [place] (1.001-1.035) Urine Protein (Negative) Urine Glucose (UA) (Negative) Urine Ketones (Negative) Urine Blood (Negative) Urine Nitrite (Negative) Urine Bilirubin (Negative) Urine Urobilinogen (<2.0) mg/dL Ur Leukocyte Esterase (Negative) Urine HCG, Qual Not Detected (Not Detectd) 09/16/18 09/16/18 Range/Units 10:50 10:57 WBC (3.8-10.6) k/uL RBC (3.80-5.40) m/uL Hgb (11.4-16.0) gm/dL Hct (34.0-46.0) % MCV (80.0-100.0) fL MCH (25.0-35.0) pg MCHC (31.0-37.0) g/dL RDW (11.5-15.5) % Plt Count (150-450) k/uL Neutrophils % % Lymphocytes % % Monocytes % % Eosinophils % % Basophils % % Neutrophils # (1.3-7.7) k/uL Lymphocytes # (1.0-4.8) k/uL Monocytes # (0-1.0) k/uL Eosinophils # (0-0.7) k/uL Basophils # (0-0.2) k/uL PT 9.9 (9.0-12.0) sec INR 0.9 (<1.2) Sodium (137-145) mmol/L Potassium (3.5-5.1) mmol/L Chloride (98-107) mmol/L Carbon Dioxide (22-30) mmol/L Anion Gap mmol/L BUN (7-17) mg/dL Creatinine (0.52-1.04) mg/dL Est GFR (CKD-EPI)AfAm (>60 ml/min/1.73 sqM) Est GFR (CKD-EPI)NonAf (>60 ml/min/1.73 sqM) Glucose (74-99) mg/dL Calcium (8.4-10.2) mg/dL Total Bilirubin (0.2-1.3) mg/dL AST (14-36) U/L ALT (9-52) U/L Alkaline Phosphatase (38-126) U/L Total Protein (6.3-8.2) g/dL Albumin (3.5-5.0) g/dL Lipase (23-300) U/L Urine Color Yellow Urine Appearance Clear (Clear) Urine pH 6.0 (5.0-8.0) Ur Specific [place] 1.022 (1.001-1.035) Urine Protein Trace H (Negative) Urine Glucose (UA) Negative (Negative) Urine Ketones Negative (Negative) Urine Blood Negative (Negative) Urine Nitrite Negative (Negative) Urine Bilirubin Negative (Negative) Urine Urobilinogen <2.0 (<2.0) mg/dL Ur Leukocyte Esterase Negative (Negative) Urine HCG, Qual (Not Detectd) Disposition Clinical Impression: Ovarian cyst, Abdominal pain Disposition: HOME SELF-CARE Condition: Good Instructions (If sedation given, give patient instructions): Abdominal Pain (ED) Is patient prescribed a controlled substance at d/c from ED?: No Referrals: Celeste Cheng III, MD [Primary Care Provider] - 1-2 days Damaris Hoffman DO [Doctor of Osteopathic Medicine] - 1-2 days Time of Disposition: 15:26
[2018-09-16 10:34] LABS: Appearance,Urine Clear (Clear); Bilirubin,Urine Negative (Negative); Blood,Urine Negative (Negative); Color,Urine Yellow; Glucose,Urine (UA) Negative (Negative); Ketones,Urine Negative (Negative); Leukocyte Esterase,Urine Negative (Negative); Nitrite,Urine Negative (Negative); Protein,Urine Trace (Negative); Specific Gravity,Urine 1.022 (1.001-1.035); Urobilinogen,Urine <2.0 mg/dL (<2.0)
--- NOTE | 2018-09-16 11:22 | CT ---
EXAMINATION TYPE: CT abdomen pelvis w con DATE OF EXAM: 09/16/2018 REFERENCE: Previous study dated 08/09/2017. HISTORY: abdominal pain HISTORY: Patient complains of bilateral pelvic pain CT DLP: 1724.6 mGy Automated exposure control for dose reduction was used. TECHNIQUE: Helical acquisition through the abdomen and pelvis was obtained following the oral ingesti on of without Oral Contrast and following intravenous administration of 100 mL of Isovue 300. The emilie a was reformatted in axial, coronal and sagittal projections. FINDINGS: Visualized portions of the lungs are clear. There is no pleural or pericardial fluid. The heart is not enlarged. Within the abdomen, the liver is enlarged measuring 20 cm. The spleen and gallbladder are normal. Both adrenal glands are normal. Both kidneys demonstrate function and appear morphologically normal. The pancreas is unremarkable. There is no significant retroperitoneal, iliac or inguinal adenopathy. There is a second 3 cm right adnexal cyst. The uterus is mildly heterogenous and may have fibroid wayne nge. The bladder is unremarkable. There is no significant diverticular change and there is no radiographic evidence of diverticulitis. The appendix is normal. Small bowel loops are normal. There is no free fluid and no free air. There is soft tissue stranding in the subcutaneous fat of the lower abdominal wall anteriorly. This m ay be secondary to recent injection. There is improvement of previous interpedicular fusion at L5-S1. No bony destructive lesion is seen. IMPRESSION: 1. 3 CM, RIGHT ADNEXAL CYST. 2. I CANNOT EXCLUDE UTERINE FIBROIDS. 3. NORMAL APPENDIX. 4. HEPATOMEGALY. 5. POSTSURGICAL CHANGE.
[2018-09-16 11:30] LABS: Basophils % (A) 0 %; Eosinophils # (A) 0.2 k/uL (0-0.7); Eosinophils % (A) 2 %; HCT 38.7 % (34.0-46.0); HGB 12.6 gm/dL (11.4-16.0); Lymphocytes % (A) 16 %; MCH 25.7 pg (25.0-35.0); MCHC 32.5 g/dL (31.0-37.0); Mean Platelet Volume 7.2; Monocytes # (A) 0.5 k/uL (0-1.0); Monocytes % (A) 4 %; Neutrophils # (A) 9.9 k/uL (1.3-7.7); Neutrophils % (A) 78 %; Platelet Count 330 k/uL (150-450); RBC 4.89 m/uL (3.80-5.40); RDW 15.7 % (11.5-15.5); WBC 12.8 k/uL (3.8-10.6)
[2018-09-16 11:55] LABS: INR 0.9 (<1.2); Prothrombin Time 9.9 sec (9.0-12.0)
[2018-09-16 11:57] LABS: ALT 22 U/L (9-52); AST 15 U/L (14-36); Albumin 4.1 g/dL (3.5-5.0); Alkaline Phosphatase 61 U/L (38-126); Anion Gap 10 mmol/L; Blood Urea Nitrogen 10 mg/dL (7-17); Calcium 9.2 mg/dL (8.4-10.2); Carbon Dioxide 23 mmol/L (22-30); Chloride 104 mmol/L (98-107); Glucose 99 mg/dL (74-99); Lipase 43 U/L (23-300); Potassium 4.6 mmol/L (3.5-5.1); Sodium 137 mmol/L (137-145); Total Bilirubin 0.7 mg/dL (0.2-1.3); Total Protein 7.2 g/dL (6.3-8.2)
[2018-09-16] MEDS ORDERED: KETOROLAC 30 MG/ML 1 ML VIAL IVP STA (12:10)
--- NOTE | 2018-09-16 14:15 | US ---
EXAMINATION TYPE: US transvaginal DATE OF EXAM: 09/16/2018 COMPARISON: Previous study dated 09/12/2015 CLINICAL HISTORY: Pain. Pelvic pain x 1 day, 3, para 2, 1, history of 2 c-sections TECHNIQUE: Transvaginal ER exam. Date of LMP: 1 to 2 weeks ago EXAM MEASUREMENTS: Uterus: 8.5 x 4.9 x 4.9 cm Endometrial Stripe: 0.9 cm Right Ovary: 5.1 x 3.1 x 4.2 cm Left Ovary: 3.9 x 2.2 x 2.5 cm 1. Uterus: retroflexed, heterogeneous, nabothian cysts 2. Endometrium: appears wnl 3. Right Ovary: 2.9 x 2.1 x 2.4cm cystic area 4. Left Ovary: wnl Spectral, color and waveform doppler imaging shows good arterial and venous flow within the ovaries ; there is no evidence for ovarian torsion. 5. Bilateral Adnexa: wnl 6. Posterior cul-de-sac: small amount of free fluid IMPRESSION: 1. NABOTHIAN CYSTS. 2. RIGHT OVARIAN CYST. SHORT-TERM FOLLOW-UP MAY BE WORTHWHILE.
[2018-09-16] MEDS ORDERED: MORPHINE SULFATE 4 MG/ML SYRINGE IVP STA (14:20)
[2018-09-16 15:47] VITALS: BP 127/65; PULSE 70; TEMP 98.3
== END 2018-09-16 15:45 | disposition home or self-care (01) ==
LOC: EC 09:24
DX: N83.201 Unspecified ovarian cyst, right side (principal); D72.829 Elevated white blood cell count, unspecified; F32.9 Major depressive disorder, single episode, unspecified; F41.9 Anxiety disorder, unspecified; F17.200 Nicotine dependence, unspecified, uncomplicated; Z88.1 Allergy status to other antibiotic agents; Z79.890 Hormone replacement therapy; Z79.899 Other long term (current) drug therapy; Z87.39 Personal history of other diseases of the musculoskeletal system and connective tissue; Z98.1 Arthrodesis status
CPT/HCPCS: 36415; 80053; 83690; 85025; 85610; 81003; 81025; 93975; 76830; 74177; 99284; 96374; 96375; 96361; J2270; J1885; Q9967

== ENCOUNTER 2019-08-03 09:22 | Emergency (ER) | payer OTHER ==
[2019-08-03] MEDS ORDERED: HYDROmorphone 1 MG/ML 1 ML SYRINGE IM STA ×2 (09:42→11:08)
[2019-08-03] MEDS ORDERED: methylPREDNISolone SOD SUCCI 125 MG/2 ML VIAL IM ONE (09:42)
--- NOTE | 2019-08-03 09:45 | ED ---
General Adult HPI - General Chief complaint: Back Pain/Injury Stated complaint: back pain Time Seen by Provider: 08/03/19 09:33 Source: patient, RN notes reviewed Mode of arrival: ambulatory Limitations: no limitations - History of Present Illness Initial comments: Patient is a pleasant 34-year-old female presenting to the emergency Department with complaints of low back pain. Patient did have a fall a couple of days ago and complains of increase lower back discomfort. Patient does have chronic back problems. Patient has had previous laminectomy 2 as well as fusion. Patient does have chronic urinary incontinence which may be slightly increased. Patient states discomfort radiates to both legs. Discomfort increases with movement. Patient states she has chronic weakness and loss of sensation right proximal anterior thigh. No other areas of pain or concern. - Related Data Home Medications Medication Instructions Recorded Confirmed Sertraline HCl [Zoloft] 150 mg PO DAILY 12/31/15 09/16/18 Levothyroxine Sodium [Synthroid] 25 mcg PO DAILY 04/29/17 09/16/18 Albuterol Inhaler [Ventolin Hfa 2 puff INHALATION RT-Q6H PRN 09/16/18 09/16/18 Inhaler] Dextroamphetamine/Amphetamine 20 mg PO QAM 09/16/18 09/16/18 [Adderall Xr] Ergocalciferol [Vitamin D2] 50,000 unit PO FR 09/16/18 09/16/18 Previous Rx's Medication Instructions Recorded methylPREDNISolone Dose Pack 24 mg PO DAILY #1 tab 08/03/19 [Medrol Dose Pack] Allergies Allergy/AdvReac Type Severity Reaction Status Date / Time clarithromycin [From Biaxin] AdvReac Diarrhea Verified 08/03/19 09:29 Review of Systems ROS Statement: Those systems with pertinent positive or pertinent negative responses have been documented in the HPI. ROS Other: All systems not noted in ROS Statement are negative. Constitutional: Denies: fever Eyes: Denies: eye pain ENT: Denies: ear pain Respiratory: Denies: cough Cardiovascular: Denies: chest pain Gastrointestinal: Denies: abdominal pain Genitourinary: Reports: as per HPI. Denies: dysuria Musculoskeletal: Reports: as per HPI, back pain Skin: Denies: rash Neurological: Reports: as per HPI Past Medical History Past Medical History: Chest Pain / Angina, Musculoskeletal Disorder Additional Past Medical History / Comment(s): DDD, recurrent back pain, STOMACH ULCERS, Sinus Tachycardia. MARTIN. Dizziness at times, N/T rt buttocks radiating rt leg,feels like muscle spasms in stomach. History of Any Multi-Drug Resistant Organisms: None Reported Past Surgical History: Back Surgery, Section Additional Past Surgical History / Comment(s): 12/31/15 Revision laminectomy discectomy posterior lumbar decompression fusion, transforiminal lumbar interbody fusion L5-S1 with cell saver and NIM cord monitoring. Other SX: pyloric surgery INFANT, low BACK SURGERIES x2, C-Sections x2. Past Anesthesia/Blood Transfusion Reactions: No Reported Reaction Additional Past Anesthesia/Blood Transfusion Reaction / Comment(s): Pt has never recieved blood. Past Psychological History: Anxiety, Depression Smoking Status: Current every day smoker Past Alcohol Use History: None Reported Past Drug Use History: Marijuana - Past Family History Father Family Medical History: Coronary Artery Disease (CAD), Myocardial Infarction ([place]) Additional Family Medical History / Comment(s): Father has stents. He has back issues. Mother Additional Family Medical History / Comment(s): Mother has a bad back. General Exam Limitations: no limitations General appearance: alert, in no apparent distress Head exam: Present: normocephalic Eye exam: Present: normal appearance Neck exam: Present: normal inspection Respiratory exam: Present: normal lung sounds bilaterally Cardiovascular Exam: Present: regular rate, normal rhythm GI/Abdominal exam: Present: soft. Absent: distended, tenderness Extremities exam: Present: normal inspection Back exam: Present: normal inspection. Absent: tenderness Neurological exam: Present: alert, other (Patient is able to lift each leg off the bed for a couple of seconds, somewhat limited by pain. Distal dorsi and plantar flexion strength intact. Distal sensation intact.) Psychiatric exam: Present: normal affect, normal mood Skin exam: Present: normal color Course Vital Signs 08/03/19 09:26 Temperature 98.8 F Pulse Rate 105 H Respiratory 20 Rate Blood Pressure 141/64 O2 Sat by Pulse 95 Oximetry - Reevaluation(s) Reevaluation #1: 08/03/19 09:50 Case was discussed in detail with Dr. Louis including patient's history and exam. He agrees with computed tomography scan and probable discharge with steroids and follow-up in the beginning of the week. He agrees patient does not need emergent MRI at this time. 08/03/19 11:09 Patient again reevaluated and does have some improvement. Case was again discussed with Dr. Louis who is comfortable with discharge of this patient and will follow-up Tuesday or Tuesday. He again recommends steroids. Medical Decision Making - Radiology Data Radiology results: report reviewed (Lumbar spine CT shows postsurgical changes. Metal artifact. Multilevel disc bulging with suspected canal stenosis and foraminal encroachment. Disc protrusion or herniation L4/L5 suspected.) Disposition Clinical Impression: Lumbar radiculopathy Disposition: HOME SELF-CARE Condition: Stable Instructions (If sedation given, give patient instructions): Acute Low Back Pain (ED) Additional Instructions: Please follow-up with Dr. Louis Tuesday or Tuesday as recommended. Please also follow-up with primary care physician. Return for weakness, loss of control of bowel or bladder, loss of sensation, worsening symptoms or other concerns. Prescription sent here pharmacy in [place] Prescriptions: methylPREDNISolone Dose Pack [Medrol Dose Pack] 24 mg PO DAILY #1 tab Is patient prescribed a controlled substance at d/c from ED?: No Referrals: Celeste Cheng III, MD [Primary Care Provider] - 1-2 days Zamzam Louis DO [Doctor of Osteopathic Medicine] - 1-2 days Time of Disposition: 11:11
--- NOTE | 2019-08-03 10:40 | CT ---
EXAMINATION TYPE: CT lumbar spine wo con DATE OF EXAM: 08/03/2019 10:26 AM COMPARISON: 10/10/2014 HISTORY: recent fall, low back pain, history of lumbar surgery CT DLP: 1216.4 mGycm Automated exposure control for dose reduction was used. Unenhanced CT of the lumbar spine was performed. Bone and soft tissue window settings are submitted as well as coronal and sagittal reconstructions. Assessment spinal canal is markedly limited and near ly nondiagnostic due to resolution and artifact. L1-L2: Normal disc space height. No disc herniation protrusion or central stenosis. No facet joint arthropathy. No evidence for foraminal encroachment. L2-L3: Mild circumferential disc bulging. Very tiny hypertrophic spurring anteriorly. Neural foramina patent. L3-L4: Diffuse disc bulging with hypertrophic change of the facets and ligamentum flavum. Could not e xclude canal stenosis or foraminal encroachment. L4-L5: Broad-based disc protrusion or herniation. Artifact from postsurgical change obscures the gabriel on. Ligamentum flavum hypertrophy noted. Suspicious findings for canal stenosis and bilateral foramin al encroachment. L5-S1: Nondiagnostic assessment due to extreme artifact from metallic hardware. IMPRESSION: 1. Postsurgical change L5-S1 with nondiagnostic assessment secondary to extreme metal artifact. 2. The remaining vertebral segments are intact with no acute fracture. 3. Multilevel disc bulging and suspected canal stenosis with foraminal encroachment. Given the limita tion exam recommend follow-up MRI. Disc protrusion or herniation L4-L5 suspected.
[2019-08-03] MEDS ORDERED: ACET/COD 300 MG/30 MG STARTER PACK 6 TAB BTL PO STA (11:08)
[2019-08-03 11:29] VITALS: BP 137/72; PULSE 81; RESP 19; TEMP 97.9
== END 2019-08-03 11:29 | disposition home or self-care (01) ==
LOC: EC 09:22
DX: M54.16 Radiculopathy, lumbar region (principal); F41.9 Anxiety disorder, unspecified; F32.9 Major depressive disorder, single episode, unspecified; F17.200 Nicotine dependence, unspecified, uncomplicated; Z79.890 Hormone replacement therapy; Z79.899 Other long term (current) drug therapy; Z88.1 Allergy status to other antibiotic agents; Z98.1 Arthrodesis status
CPT/HCPCS: 72131; 99283; 96372 ×3; J2930; J1170

== ENCOUNTER → 2019-08-17 | Outpatient (CLI) | payer OTHER ==
--- NOTE | 2019-08-18 17:21 | MR ---
EXAMINATION TYPE: MR pelvis wo con DATE OF EXAM: 08/17/2019 COMPARISON: None HISTORY: Pelvic/rectal pain, ann marie groin pain Multiplanar multiecho imaging of the pelvis was performed without contrast. Uterus is retroflexed and retroverted. Uterus has normal size. Endometrium appears normal. Urinary bl adder is unremarkable. There is no free fluid in the pelvis. There is 3 x 2.4 cm thin-walled simple c yst in the right adnexal region consistent with ovarian cyst. There are small follicular cysts on the left ovary. I see no pelvic lymphadenopathy. There is no perirectal mass. Rectum appears intact. The re is no perirectal edema. The bony pelvis is intact. The proximal femurs and hip joints are intact. There is no sign of hip dysplasia. There is no evidence of avascular necrosis. Sacroiliac joints appe ar intact. There is no inguinal hernia. IMPRESSION: Simple cyst on the right ovary. No solid pelvic mass. No free fluid.
--- NOTE | 2019-08-21 11:12 | MR ---
EXAMINATION TYPE: MR lumbar spine wo/w con DATE OF EXAM: 08/17/2019 COMPARISON: CT lumbar spine 08/03/2019, MRI 05/03/2014 HISTORY: LBP, muscle spasms, BLE radic CONTRAST: 10 mL intravenous Gadavist. TECHNIQUE: Multiplanar, multisequence images of the lumbar spine were acquired. FINDINGS: L5-S1: There is visualized with pedicle screws at L5-S1. No spinal stenosis is evident no focal disc herniation or disc bulge is evident. There is some narrowing of the disc space. Disc space may be pre sent. L4-L5: Central focal bulge is present with mild anterior thecal sac compression. No AP spinal canal s tenosis present. Facet hypertrophy is posterior lateral thecal sac compression. Pedicle screws limit evaluation. Disc height appears preserved. Foramen are patent. L3-L4: No significant disc bulge or disc herniation. No spinal canal stenosis. No foraminal stenosi s.. L2-L3: No significant disc bulge or disc herniation. No spinal canal stenosis. No foraminal stenosi s. L1-L2: No significant disc bulge or disc herniation. No spinal canal stenosis. No foraminal stenosi s. T12-L1: No significant disc bulge or disc herniation. No spinal canal stenosis. No foraminal stenos is. No abnormal enhancement. IMPRESSION: 1. Postsurgical changes L5-S1. 2. Disc bulge with mild anterior thecal sac compression L4-5.
== END | disposition home or self-care (01) ==
LOC: RADMRIMAIN 20:22
PROVIDERS: ATTEND Physician Assistant
DX: M51.26 Other intervertebral disc displacement, lumbar region (principal); N83.291 Other ovarian cyst, right side; E66.9 Obesity, unspecified; Z98.890 Other specified postprocedural states
CPT/HCPCS: 72158; 72195; A9585

== ENCOUNTER → 2020-02-27 | Outpatient (CLI) | payer OTHER ==
--- NOTE | 2020-02-27 11:55 | US ---
EXAMINATION TYPE: US transvaginal DATE OF EXAM: 02/27/2020 COMPARISON: US CLINICAL HISTORY: N92.0 frequent menstration. TECHNIQUE: Transvaginal (TV). Date of LMP: EXAM MEASUREMENTS: Uterus: 10.2 x 5.6 x 6.2 cm Endometrial Stripe: 1.0 cm Right Ovary: 5.9 x 4.8 x 4.4 cm Left Ovary: 2.9 x 2.6 x 1.8 cm 1. Uterus: Retroverted wnl 2. Endometrium: wnl 3. Right Ovary: cyst measures 4.4 x 3.2 x 3.9 cm 4. Left Ovary: wnl 5. Bilateral Adnexa: wnl 6. Posterior cul-de-sac: no free fluid IMPRESSION: Right ovarian cystic lesion which may reflect functional ovarian cysts. This could be confirmed with follow-up study in 6 weeks.
--- NOTE | 2020-03-07 13:23 | EM ---
This is a 7 day event monitor report. Baseline rhythm is sinus. Patient has episodes of sinus tachycardia. No Sigmund bradyarrhythmias or pauses noted. No ventricular arrhythmias are noted. Patient complained of several symptoms including racing fast heartbeat, chest pains correlating mostly to sinus rhythm and sinus tachycardia. Patient complained of an episode of irregular heartbeats at 3:37 AM at that time patient had a brief episodes of paroxysmal atrial tachycardia consisting of 6 beats. Final impression: #1. Baseline rhythm is sinus rhythm with sinus tachycardia #2 one brief episodes of paroxysmal atrial tachycardia consisting of 6 beats associated with symptoms of irregular heartbeat/flutter #3, patient had several other symptoms including racing of the heart and Chest pain and not correlating with any significant cardiac events. [facility]
== END | disposition home or self-care (01) ==
LOC: RADUSWWP 11:16
PROVIDERS: ATTEND Family Medicine
DX: N83.201 Unspecified ovarian cyst, right side (principal); I47.1 Supraventricular tachycardia; I49.8 Other specified cardiac arrhythmias; R07.9 Chest pain, unspecified
CPT/HCPCS: 76830; 93270

== ENCOUNTER → 2020-04-03 | Outpatient (CLI) | payer OTHER | END | disposition home or self-care (01) | LOC: RADCTMAIN 12:34 | PROVIDERS: ATTEND Family Medicine | DX: Z53.9 Procedure and treatment not carried out, unspecified reason (principal) ==

== ENCOUNTER → 2020-04-03 | Outpatient (CLI) | payer OTHER ==
--- NOTE | 2020-04-03 12:57 | US ---
EXAMINATION TYPE: US thyroid st tissue head/neck DATE OF EXAM: 04/03/2020 COMPARISON: NONE CLINICAL HISTORY: E06.3 Autoimmune thyroiditis. thyroiditis GLAND SIZE: Right Lobe: 4.2 x 1.9 x 1.7 cm Overall Parenchyma: heterogenous Left Lobe: 4.3 x 1.8 x 1.5 cm Overall Parenchyma: heterogeneous Isthmus Thickness: 0.3 cm NODULES RIGHT: # of nodules measured on right: 0 LEFT: # of nodules measured on left: 1 1. 0.7 X 0.4 x 0.6 cm hypoechoic solid nodule at the mid/lateral pole with well-defined margins; . This nodule is wider than tall and shows no intranodular vascularity. Prior size: 0.7 x 0.4 x 0.5 cm ISTHMUS: # of nodules measured in the isthmus: 0 Bilateral neck scanned, no evidence of lymphadenopathy. IMPRESSION: 1. Stable subcentimeter left lobe thyroid nodule
--- NOTE | 2020-04-03 13:29 | CT ---
EXAMINATION TYPE: CT brain wo con DATE OF EXAM: 04/03/2020 COMPARISON: None. HISTORY: Headache, after injury CT DLP: 1035.4 mGycm. Automated Exposure Control for Dose Reduction was Utilized. TECHNIQUE: CT scan of the head is performed without contrast. FINDINGS: There is no acute intracranial hemorrhage, mass effect, or midline shift identified. The ventricles and sulci are within normal limits in size. Osorio-white matter differentiation is maintain ed. Prominence of CSF posterior inferior aspect posterior fossa could reflect arachnoid cyst or magna cisterna magna. The calvarium is intact. The globes are intact and the visualized sinuses are clear. Partial empty sella morphology. IMPRESSION: No acute intracranial hemorrhage or midline shift is seen.
--- NOTE | 2020-04-03 14:43 | USB ---
Reason for exam: clinical finding. History: Family history of breast cancer in paternal grandmother at age 42. Took hormonal contraceptives for 6 years. Indicated problem(s): pain in both breasts. Physical Findings: Nurse did not find any significant physical abnormalities on exam. US Breast BILAT Right complete breast ultrasound includes all four quadrants, the retroareolar region and axilla. Finding demonstrates no cystic or solid lesion seen. Left complete breast ultrasound includes all four quadrants, the retroareolar region and axilla. Finding demonstrates no cystic or solid lesion seen. These results were verbally communicated with the patient and result sheet given to the patient on 04/03/20. ASSESSMENT: Negative, BI-RAD 1 RECOMMENDATION: Follow-up diagnostic mammogram of both breasts.
--- NOTE | 2020-04-03 14:44 | MM ---
Reason for exam: clinical finding. Last mammogram was performed 5 years and 4 months ago. History: Family history of breast cancer in paternal grandmother at age 42. Took hormonal contraceptives for 6 years. MG 3D Diag Mammo W/Cad BENNIE Bilateral CC, MLO, and XCCL view(s) were taken. Prior study comparison: December 04, 2014, bilateral MG screening mammo w CAD. The breast tissue is heterogeneously dense. This may lower the sensitivity of mammography. No significant new findings when compared with previous films. These results were verbally communicated with the patient and result sheet given to the patient on 04/03/20. ASSESSMENT: Benign, BI-RAD 2 RECOMMENDATION: Routine screening mammogram of both breasts in 1 year.
== END | disposition home or self-care (01) ==
LOC: RADUSWWP 10:46
PROVIDERS: ATTEND Family Medicine
DX: E04.1 Nontoxic single thyroid nodule (principal); R51.9 Headache, unspecified; N64.4 Mastodynia; R92.8 Other abnormal and inconclusive findings on diagnostic imaging of breast
CPT/HCPCS: 85025; 77066; 76536; 76641; 70450; 36415; G0279; 77062

== ENCOUNTER → 2020-04-03 | Outpatient (CLI) | payer OTHER ==
[2020-04-03 13:46] LABS: Anisocytosis Slight; Basophils % (A) 0 %; Eosinophils # (A) 0.1 k/uL (0-0.7); Eosinophils % (A) 1 %; HCT 46.6 % (34.0-46.0); HGB 14.8 gm/dL (11.4-16.0); Lymphocytes # (A) 2.4 k/uL (1.0-4.8); Lymphocytes % (A) 24 %; MCH 26.5 pg (25.0-35.0); MCHC 31.9 g/dL (31.0-37.0); MCV 83.2 fL (80.0-100.0); Mean Platelet Volume 7.4; Microcytosis Slight; Monocytes # (A) 0.4 k/uL (0-1.0); Monocytes % (A) 4 %; Neutrophils # (A) 6.9 k/uL (1.3-7.7); Neutrophils % (A) 69 %; Platelet Count 339 k/uL (150-450); RDW 17.7 % (11.5-15.5)
== END | disposition home or self-care (01) ==
LOC: LABPAT 10:54
PROVIDERS: ATTEND Obstetrics & Gynecology
DX: Z01.818 Encounter for other preprocedural examination (principal)
CPT/HCPCS: 36415; 85025

== ENCOUNTER 2020-05-01 07:53 | Day surgery (SDC) | payer OTHER ==
[2020-04-30 10:43] VITALS: BMI 39.1
--- NOTE | 2020-04-30 13:31 | P.HPOB ---
History of Present Illness H&P Date: 04/30/20 Chief Complaint: pelvic pain 34 year old presents for laparoscopic aspiration of ovarian cyst, possible cauterization of endometriosis using da rasheed and D&C hysteroscopy, endometrial ablation with novasure. Review of Systems All systems: negative Constitutional: Denies chills, Denies fever Eyes: denies blurred vision, denies pain Ears, nose, mouth and throat: Denies headache, Denies sore throat Cardiovascular: Denies chest pain, Denies shortness of breath Respiratory: Denies cough Gastrointestinal: Denies abdominal pain, Denies diarrhea, Denies nausea, Denies vomiting Genitourinary: Denies dysuria, Denies hematuria Musculoskeletal: Denies myalgias Integumentary: Denies pruritus, Denies rash Neurological: Denies numbness, Denies weakness Psychiatric: Denies anxiety, Denies depression Endocrine: Denies fatigue, Denies weight change Past Medical History Past Medical History: Asthma, Musculoskeletal Disorder, Thyroid Disorder Additional Past Medical History / Comment(s): ovarian cysts, heavy periods, DDD, recurrent back pain, hx STOMACH ULCERS, hx Sinus Tachycardia. migraine MARTIN. Dizziness at times, N/T rt buttocks radiating rt leg, History of Any Multi-Drug Resistant Organisms: None Reported Past Surgical History: Back Surgery, Section Additional Past Surgical History / Comment(s): 12/31/15 Revision laminectomy discectomy posterior lumbar decompression fusion, transforiminal lumbar interbody fusion L5-S1 with cell saver and NIM cord monitoring. Other SX: pyloric surgery , low BACK SURGERIES x2, C-Sections x2. Past Anesthesia/Blood Transfusion Reactions: No Reported Reaction Additional Past Anesthesia/Blood Transfusion Reaction / Comment(s): Pt has never recieved blood. Smoking Status: Current every day smoker - Past Family History Father Family Medical History: Coronary Artery Disease (CAD), Myocardial Infarction ([place]) Additional Family Medical History / Comment(s): Father has stents. He has back issues. Mother Additional Family Medical History / Comment(s): Mother has a bad back. Medications and Allergies Home Medications Medication Instructions Recorded Confirmed Type Sertraline HCl [Zoloft] 150 mg PO DAILY 12/31/15 04/30/20 History Levothyroxine Sodium [Synthroid] 25 mcg PO DAILY 04/29/17 04/30/20 History Albuterol Inhaler (Mhu) [Ventolin 2 puff INHALATION RT-Q6H PRN 09/16/18 04/30/20 History Hfa Inhaler] Ergocalciferol [Vitamin D2] 50,000 unit PO FR 09/16/18 04/30/20 History Ferrous Sulfate [Feosol] 325 mg PO DAILY 04/30/20 04/30/20 History Hydrocodone/Acetaminophen [[place] 1 tab PO TID PRN 04/30/20 04/30/20 History 5-325] Nicotine 21Mg/24Hr Patch [Habitrol] 1 each TRANSDERM DAILY 04/30/20 04/30/20 History Allergies Allergy/AdvReac Type Severity Reaction Status Date / Time clarithromycin [From Biaxin] AdvReac Diarrhea Verified 04/30/20 10:34 Exam Osteopathic Statement: *. No significant issues noted on an osteopathic structural exam other than those noted in the History and Physical/Consult. Intake and Output 04/29/20 04/30/20 04/30/20 22:59 06:59 14:59 Other: Weight 106.594 kg HEart: RRR Lungs: CTAB Abdomen: soft, nontender Etremeties: neg kin's Assessment and Plan (1) Pelvic pain Status: Acute Code(s): R10.2 - PELVIC AND PERINEAL PAIN SNOMED Code(s): 61180773 (2) Menorrhagia Status: Acute Code(s): N92.0 - EXCESSIVE AND FREQUENT MENSTRUATION WITH REGULAR CYCLE SNOMED Code(s): 651213966 Plan: 1. laparoscopic aspiration of ovarian cyst, cauterization of endometriosis using da rasheed ; D&C hysteroscopy and endometrial ablation with NovaSure.
[~2020-05-01 07:53] MED LIST: DEXAMETHASONE SOD PHOSPHATE 4 MG/ML 1 ML VIAL IV ONE; LACTATED RINGERS 1,000 ML IV SCH; LIDOCAINE 1% (10MG/ML) FOR IV START INTRADERMA PRN; ONDANSETRON 4 MG/2 ML VIAL IVP ONE; Pre Op ABX Message 1 EACH MISC MISCELLANE ONE; SCOPOLAMINE 1.5MG/72HR PATCH TRANSDERM ONE
[2020-05-01] MEDS ORDERED: PHENYLEPHRINE-0.9% NACL SYG 1 MG/10 ML SYRINGE ONE (09:11)
[2020-05-01] MEDS ORDERED: fentaNYL (PF) 50 MCG/ML 2 ML AMP ONE (09:11)
[2020-05-01] MEDS ORDERED: ROCURONIUM 10 MG/ML (10 ML VIAL) IV ONE (09:11)
[2020-05-01] MEDS ORDERED: ALBUTEROL INHALER 60 PUFF/8 GM INHALER (MHU) INHALATION ONE (09:11)
[2020-05-01] MEDS ORDERED: MIDAZOLAM 2 MG/2 ML VIAL ONE (09:11)
[2020-05-01] MEDS ORDERED: LIDOCAINE 1% INJ 10MG/ML (20 ML MDV) ONE (09:11)
[2020-05-01] MEDS ORDERED: GLYCOPYRROLATE 0.2 MG/ML 2 ML VIAL ONE (09:11)
[2020-05-01] MEDS ORDERED: NEOSTIGMINE 1 MG/ML 10 ML VIAL ONE (09:11)
[2020-05-01] MEDS ORDERED: SUCCINYLCHOLINE CHLORIDE VIAL 200 MG/10 ML VIAL IV ONE (09:11)
[2020-05-01] MEDS ORDERED: PROPOFOL 10 MG/ML 20 ML VIAL IV ONE (09:11)
[2020-05-01] MEDS ORDERED: DEXAMETHASONE SOD PHOSPHATE 10 MG/ML 1 ML VIAL ONE (09:11)
[2020-05-01] MEDS ORDERED: BUPIVACAINE (PF) 0.25% 30 ML VIAL SQ ONE (10:14)
[2020-05-01] MEDS ORDERED: LACTATED RINGERS 1,000 ML IV ONE (10:15)
[2020-05-01] MEDS ORDERED: CELLULOSE,OXIDIZED 1 EACH EACH MISCELLANE ONE (10:24)
--- NOTE | 2020-05-01 10:56 | P.OP ---
Date of Procedure: 05/01/20 Preoperative Diagnosis: 1. pelvic pain 2. ovarian cyst 3. menorrhagia Postoperative Diagnosis: 1. pelvic pain 2. simple left ovarian cyst 3. endometrioma of left ovary 4. adhesions 5. menorrhagia Procedure(s) Performed: D&C, hysteroscopy, endometrial ablation with NovaSure, robotic-assisted laparoscopic aspiration of bilateral ovarian cysts, lysis of pelvic and ovarian adhesions, a segment of Interceed Anesthesia: GETA (Difficult intubation, needed to use glidescope) Surgeon: Damaris Hoffman Estimated Blood Loss (ml): 10 IV fluids (ml): 1,100 Urine output (ml): 20 Pathology: other (Endometrial curettings) Condition: stable Disposition: PACU Operative Findings: Uterus sounded to 8 cm, cavity length was 6.5 cm, width 3.7 cm, time of ablation 45 seconds at [address]. Adequate ablation after NovaSure. Ovarian adhesions the p osterior cul-de-sac. Simple cyst on the left ovary and an endometrioma on the right ovary. Description of Procedure: Patient is taken the operating room where general anesthesia was obtained without difficulty. She was prepped and draped in normal sterile fashion dorsal lithotomy position, legs placed in the Digerati cane stirrups. Bladder was drained of all urine. Weighted speculum placed in the vagina and the anterior lip the cervix was grasped with serial tooth tenaculum. The uterus sounded to 8 cm and the cervix under 2 cm making the cavity length 6 cm. The cervix was dilated to #8 Hegar dilator. Hysteroscopy was then performed. Both ostia were visualized and there was a smooth contour of the uterus. Sharp curet was then gently used to obtain endometrial curettings. The NovaSure was introduced into the uterus with a cavity length of 6.5 cm, width 3.7 cm. after cavity assessment was passed, the time of ablation was 45 seconds at [address]. Hysteroscopy was again performed and adequate ablation was noted. The Meritfulr manipulator was then placed. Attention was then turned to the abdomen and gloves were changed. A 5 mm supraumbilical incision was made the scalpel and a 5 mm optical trocar was placed under direct visualization. 10 cm to the right of this and 2 cm down a 5 mm incision was made and 8 mm da Cesar port was placed under direct visuali zation. Same measurements on the opposite side of the patient's abdomen, the 5 mm incision was made and 8 mm da Cesar port was placed under direct visualization. In the left upper quadrant a 10 mm incision was made and a 10 mm optical trocar was placed under direct visualization. The 5 mm optical trocar was then replaced with the 8 mm da Cesar camera port. The robot was docked on patient's right side. The camera was introduced and then the monopolar curved scissor and [place] bipolar placed under direct visualization. I broke scrub and went to the physician console. Survey of the pelvis showed normal-appearing uterus but slightly dilated fallopian tubes. The posterior cul-de-sac was obliterated with both ovaries stuck to the back of the uterus and posterior cul-de-sac. The left ovary was freed up using sharp dissection of the monopolar curved scissors. The cyst in the left ovary was opened and clear fluid drained out. Hemostasis was assured on this side and the ovary was free. The right ovary was dissected out using sharp dissection and retraction. When the right ovary was free the cyst was opened about 2 cm. Topical fluid came out of that one, indicating an endometrioma. Hemostasis was assured on this side. The pelvis was irrigated. Hemostasis noted. The scissors were replaced with a Dwaine. Interceed was introduced and placed in the posterior cul-de-sac. The ovaries from the posterior cul-de-sac. All instruments were removed from the abdomen and the robot was undocked. The abdominal incisions were closed with 4-0 Vicryl in a subcuticular fashion. Patient tolerated the procedure well, sponge and instrument counts correct 2 and she was taken to recovery room in stable condition condition
[2020-05-01] MEDS: HYDROmorphone 0.5 MG/0.5 ML SYRINGE IVP PRN ×4 (11:02→11:16)
[2020-05-01 11:06] VITALS: TEMP 98.2
[2020-05-01] MEDS ORDERED: diphenhydrAMINE 50 MG/ML 1 ML VIAL IVP ONE (11:21)
[2020-05-01] MEDS: MEPERIDINE 50 MG/ML SYRINGE IVP ONE ×2 (11:28→11:45)
[2020-05-01 12:08] VITALS: RESP 16
[2020-05-01] MEDS ORDERED: HYDROcodone/APAP 5-325MG 1 EACH TAB ONE (12:48)
[2020-05-01] MEDS ORDERED: HYDROcodone/APAP 5-325MG 1 EACH TAB PO ONE (12:53)
[2020-05-01 13:21] VITALS: BP 130/86; PULSE 94
== END 2020-05-01 13:39 | disposition home or self-care (01) ==
LOC: OR 07:53
PROVIDERS: ATTEND Obstetrics & Gynecology
DX: N84.0 Polyp of corpus uteri (principal); N83.292 Other ovarian cyst, left side; N80.1 Endometriosis of ovary; N73.6 Female pelvic peritoneal adhesions (postinfective); N92.0 Excessive and frequent menstruation with regular cycle; N83.8 Other noninflammatory disorders of ovary, fallopian tube and broad ligament; J45.909 Unspecified asthma, uncomplicated; M51.9 Unspecified thoracic, thoracolumbar and lumbosacral intervertebral disc disorder; E07.9 Disorder of thyroid, unspecified; K21.9 Gastro-esophageal reflux disease without esophagitis; K08.409 Partial loss of teeth, unspecified cause, unspecified class; F41.9 Anxiety disorder, unspecified; F32.9 Major depressive disorder, single episode, unspecified; F17.210 Nicotine dependence, cigarettes, uncomplicated; Z87.11 Personal history of peptic ulcer disease; Z86.79 Personal history of other diseases of the circulatory system; Z86.69 Personal history of other diseases of the nervous system and sense organs; Z98.890 Other specified postprocedural states; Z98.1 Arthrodesis status; Z87.19 Personal history of other diseases of the digestive system; Z79.899 Other long term (current) drug therapy; Z79.890 Hormone replacement therapy; Z88.1 Allergy status to other antibiotic agents; Z82.49 Family history of ischemic heart disease and other diseases of the circulatory system; Z82.69 Family history of other diseases of the musculoskeletal system and connective tissue
CPT/HCPCS: 49322; 58563; S2900; 81025; 88305

== ENCOUNTER 2020-05-02 11:31 | Emergency (ER) | payer OTHER ==
[2020-05-02 12:18] VITALS: TEMP 98
[2020-05-02] MEDS ORDERED: MORPHINE SULFATE 4 MG/ML SYRINGE IV STA (13:30)
[2020-05-02] MEDS ORDERED: SODIUM CHLORIDE 0.9% 500 ML 500 ML IV STA (13:30)
[2020-05-02] MEDS ORDERED: SODIUM CHLORIDE 0.9% 1,000 ML IV STA ×2 (13:30)
--- NOTE | 2020-05-02 13:31 | ED ---
Abdominal Pain HPI - General Chief Complaint: Abdominal Pain Stated Complaint: post op pain Time Seen by Provider: 05/02/20 13:30 Source: patient, RN notes reviewed, old records reviewed Mode of arrival: ambulatory Limitations: no limitations - History of Present Illness Initial Comments: This is a 34-year-old female presents today for evaluation. Patient's presenting for evaluation regards to abdominal pain postoperative abdominal pain. Patient had ovarian gynecological surgery yesterday. More pain today she also has an injury from extubation in her throat swelling in her neck. No shortness of breath no fevers, patient has pain medication at home just does not significantly completely helping. Otherwise no new complaints, she does admit to some generalized body aches MD Complaint: abdominal pain, other (Sore throat with laceration likely from intubation or extubation) -: days(s) Location: diffuse, suprapubic Migration to: suprapubic Severity: moderate Severity scale (1-10): 4 Quality: aching, fullness Consistency: intermittent Improves With: nothing Worsens With: nothing Context: recent surgery/procedure Associated Symptoms: nausea - Related Data Home Medications Medication Instructions Recorded Confirmed Sertraline HCl [Zoloft] 100 mg PO DAILY 12/31/15 05/02/20 Levothyroxine Sodium [Synthroid] 25 mcg PO DAILY 04/29/17 05/02/20 Ergocalciferol [Vitamin D2] 50,000 unit PO WE 09/16/18 05/02/20 Nicotine 21Mg/24Hr Patch [Habitrol] 1 patch TRANSDERM DAILY 04/30/20 05/02/20 Albuterol Sulfate [Ventolin HFA] 1 - 2 puff INHALATION RT-Q6H PRN 05/02/20 05/02/20 Previous Rx's Medication Instructions Recorded Hydrocodone/Acetaminophen [[place] 2 tab PO Q6HR PRN 3 Days #24 tab 05/01/20 5-325] Ibuprofen [Motrin] 600 mg PO Q6HR PRN #30 tab 05/01/20 Allergies Allergy/AdvReac Type Severity Reaction Status Date / Time clarithromycin [From Biaxin] AdvReac Diarrhea Verified 05/02/20 16:28 Review of Systems ROS Statement: Those systems with pertinent positive or pertinent negative responses have been documented in the HPI. ROS Other: All systems not noted in ROS Statement are negative. Past Medical History Past Medical History: Chest Pain / Angina, Musculoskeletal Disorder Additional Past Medical History / Comment(s): DDD, recurrent back pain, STOMACH ULCERS, Sinus Tachycardia. MARTIN. Dizziness at times, N/T rt buttocks radiating rt leg,feels like muscle spasms in stomach. History of Any Multi-Drug Resistant Organisms: None Reported Past Surgical History: Back Surgery, Section, Uterine Ablation Additional Past Surgical History / Comment(s): 12/31/15 Revision laminectomy discectomy posterior lumbar decompression fusion, transforiminal lumbar interbody fusion L5-S1 with cell saver and NIM cord monitoring. Other SX: pyloric surgery , low BACK SURGERIES x2, C-Sections x2. Past Anesthesia/Blood Transfusion Reactions: No Reported Reaction Additional Past Anesthesia/Blood Transfusion Reaction / Comment(s): Pt has never recieved blood. Past Psychological History: Anxiety, Depression Smoking Status: Current every day smoker Past Alcohol Use History: None Reported Past Drug Use History: Marijuana - Past Family History Father Family Medical History: Coronary Artery Disease (CAD), Myocardial Infarction ([place]) Additional Family Medical History / Comment(s): Father has stents. He has back issues. Mother Additional Family Medical History / Comment(s): Mother has a bad back. General Exam - General Exam Comments Initial Comments: Patient does have soft palate laceration minor, healing Limitations: no limitations General appearance: alert, in no apparent distress Head exam: Present: atraumatic, normocephalic, normal inspection Eye exam: Present: normal appearance, PERRL, EOMI. Absent: scleral icterus, conjunctival injection, periorbital swelling ENT exam: Present: normal exam, mucous membranes moist Neck exam: Present: normal inspection. Absent: tenderness, meningismus, lymphadenopathy Respiratory exam: Present: normal lung sounds bilaterally. Absent: respiratory distress, wheezes, rales, rhonchi, stridor Cardiovascular Exam: Present: regular rate, normal rhythm, normal heart sounds. Absent: systolic murmur, diastolic murmur, rubs, gallop, clicks GI/Abdominal exam: Present: soft, normal bowel sounds. Absent: distended, tenderness, guarding, rebound, rigid Extremities exam: Present: normal inspection, full ROM, normal capillary refill. Absent: tenderness, pedal edema, joint swelling, calf tenderness Back exam: Present: normal inspection Neurological exam: Present: alert, oriented X3, CN II-XII intact Psychiatric exam: Present: normal affect, normal mood Skin exam: Present: warm, dry, intact, normal color. Absent: rash Course Vital Signs 05/02/20 05/02/20 12:13 17:59 Temperature 98.0 F Pulse Rate 81 67 Respiratory 20 16 Rate Blood Pressure 157/102 153/96 O2 Sat by Pulse 95 96 Oximetry - Reevaluation(s) Reevaluation #1: Medical records reviewed Patient is no significant persistent pain here in the ER symptoms are improved Spoke patient regarding results of findings are questions are answered Patient is okay for discharge Medical Decision Making - Medical Decision Making 34 female postoperative abdominal pain as well as postsurgical pain secondary to intubation or extubation. No acute findings here in the ER patient's in no distress and can be discharged home - Lab Data Result diagrams: 05/02/20 13:30 05/02/20 13:30 Lab Results 05/02/20 05/02/20 05/02/20 Range/Units 13:30 13:30 13:30 WBC 12.9 H (3.8-10.6) k/uL RBC 4.93 (3.80-5.40) m/uL Hgb 14.2 (11.4-16.0) gm/dL Hct 42.9 (34.0-46.0) % MCV 87.0 (80.0-100.0) fL MCH 28.8 (25.0-35.0) pg MCHC 33.1 (31.0-37.0) g/dL RDW 16.4 H (11.5-15.5) % Plt Count 289 (150-450) k/uL Neutrophils % 75 % Lymphocytes % 19 % Monocytes % 4 % Eosinophils % 1 % Basophils % 1 % Neutrophils # 9.7 H (1.3-7.7) k/uL Lymphocytes # 2.4 (1.0-4.8) k/uL Monocytes # 0.5 (0-1.0) k/uL Eosinophils # 0.1 (0-0.7) k/uL Basophils # 0.1 (0-0.2) k/uL Anisocytosis Slight Sodium 137 (137-145) mmol/L Potassium 4.2 (3.5-5.1) mmol/L Chloride 106 (98-107) mmol/L Carbon Dioxide 22 (22-30) mmol/L Anion Gap 9 mmol/L BUN 12 (7-17) mg/dL Creatinine 0.56 (0.52-1.04) mg/dL Est GFR (CKD-EPI)AfAm >90 (>60 ml/min/1.73 sqM) Est GFR (CKD-EPI)NonAf >90 (>60 ml/min/1.73 sqM) Glucose 109 H (74-99) mg/dL Plasma Lactic Acid Luigi 1.0 (0.7-2.0) mmol/L Calcium 8.9 (8.4-10.2) mg/dL Total Bilirubin 0.6 (0.2-1.3) mg/dL AST 22 (14-36) U/L ALT 15 (4-34) U/L Alkaline Phosphatase 50 (38-126) U/L Total Protein 6.7 (6.3-8.2) g/dL Albumin 3.9 (3.5-5.0) g/dL Amylase 53 (30-110) U/L Lipase 235 (23-300) U/L Urine Color Urine Appearance (Clear) Urine pH (5.0-8.0) Ur Specific [place] (1.001-1.035) Urine Protein (Negative) Urine Glucose (UA) (Negative) Urine Ketones (Negative) Urine Blood (Negative) Urine Nitrite (Negative) Urine Bilirubin (Negative) Urine Urobilinogen (<2.0) mg/dL Ur Leukocyte Esterase (Negative) Urine RBC (0-5) /hpf Urine WBC (0-5) /hpf Ur Squamous Epith Cells (0-4) /hpf Urine Mucus (None) /hpf 05/02/20 Range/Units 15:00 WBC (3.8-10.6) k/uL RBC (3.80-5.40) m/uL Hgb (11.4-16.0) gm/dL Hct (34.0-46.0) % MCV (80.0-100.0) fL MCH (25.0-35.0) pg MCHC (31.0-37.0) g/dL RDW (11.5-15.5) % Plt Count (150-450) k/uL Neutrophils % % Lymphocytes % % Monocytes % % Eosinophils % % Basophils % % Neutrophils # (1.3-7.7) k/uL Lymphocytes # (1.0-4.8) k/uL Monocytes # (0-1.0) k/uL Eosinophils # (0-0.7) k/uL Basophils # (0-0.2) k/uL Anisocytosis Sodium (137-145) mmol/L Potassium (3.5-5.1) mmol/L Chloride (98-107) mmol/L Carbon Dioxide (22-30) mmol/L Anion Gap mmol/L BUN (7-17) mg/dL Creatinine (0.52-1.04) mg/dL Est GFR (CKD-EPI)AfAm (>60 ml/min/1.73 sqM) Est GFR (CKD-EPI)NonAf (>60 ml/min/1.73 sqM) Glucose (74-99) mg/dL Plasma Lactic Acid Luigi (0.7-2.0) mmol/L Calcium (8.4-10.2) mg/dL Total Bilirubin (0.2-1.3) mg/dL AST (14-36) U/L ALT (4-34) U/L Alkaline Phosphatase (38-126) U/L Total Protein (6.3-8.2) g/dL Albumin (3.5-5.0) g/dL Amylase (30-110) U/L Lipase (23-300) U/L Urine Color Yellow Urine Appearance Clear (Clear) Urine pH 6.5 (5.0-8.0) Ur Specific [place] >1.050 H (1.001-1.035) Urine Protein 1+ H (Negative) Urine Glucose (UA) Negative (Negative) Urine Ketones Negative (Negative) Urine Blood Large H (Negative) Urine Nitrite Negative (Negative) Urine Bilirubin Negative (Negative) Urine Urobilinogen <2.0 (<2.0) mg/dL Ur Leukocyte Esterase Moderate H (Negative) Urine RBC >182 H (0-5) /hpf Urine WBC 48 H (0-5) /hpf Ur Squamous Epith Cells <1 (0-4) /hpf Urine Mucus Many H (None) /hpf - Radiology Data Radiology results: report reviewed (CT head and pelvis negative for acute disease chest x-ray and x-ray soft tissue neck is also negative for acute disease), image reviewed Disposition Clinical Impression: Postoperative pain Disposition: HOME SELF-CARE Condition: Good Instructions (If sedation given, give patient instructions): Pain Management After Surgery (DC) Is patient prescribed a controlled substance at d/c from ED?: No Referrals: eCleste Cheng III, MD [Primary Care Provider] - 1-2 days
[2020-05-02 14:01] LABS: Anisocytosis Slight; Basophils # (A) 0.1 k/uL (0-0.2); Basophils % (A) 1 %; Eosinophils # (A) 0.1 k/uL (0-0.7); Eosinophils % (A) 1 %; HCT 42.9 % (34.0-46.0); HGB 14.2 gm/dL (11.4-16.0); Lymphocytes # (A) 2.4 k/uL (1.0-4.8); Lymphocytes % (A) 19 %; MCH 28.8 pg (25.0-35.0); MCHC 33.1 g/dL (31.0-37.0); Mean Platelet Volume 7.3; Monocytes # (A) 0.5 k/uL (0-1.0); Monocytes % (A) 4 %; Neutrophils # (A) 9.7 k/uL (1.3-7.7); Neutrophils % (A) 75 %; Platelet Count 289 k/uL (150-450); RBC 4.93 m/uL (3.80-5.40); RDW 16.4 % (11.5-15.5); WBC 12.9 k/uL (3.8-10.6)
[2020-05-02 14:18] LABS: ALT 15 U/L (4-34); AST 22 U/L (14-36); African American GFR (CKD) >90 (>60 ml/min/1.73 sqM); Albumin 3.9 g/dL (3.5-5.0); Alkaline Phosphatase 50 U/L (38-126); Amylase 53 U/L (30-110); Anion Gap 9 mmol/L; Blood Urea Nitrogen 12 mg/dL (7-17); Calcium 8.9 mg/dL (8.4-10.2); Carbon Dioxide 22 mmol/L (22-30); Chloride 106 mmol/L (98-107); Glucose 109 mg/dL (74-99); Lipase 235 U/L (23-300); Non-African American GFR(CKD) >90 (>60 ml/min/1.73 sqM); Potassium 4.2 mmol/L (3.5-5.1); Sodium 137 mmol/L (137-145); Total Bilirubin 0.6 mg/dL (0.2-1.3); Total Protein 6.7 g/dL (6.3-8.2)
--- NOTE | 2020-05-02 15:00 | CT ---
EXAMINATION TYPE: CT abdomen pelvis w con DATE OF EXAM: 05/02/2020 COMPARISON: CT abdomen pelvis 09/16/2018 HISTORY: Abdominal pain post op ablation CT DLP: 1982 mGycm Automated exposure control for dose reduction was used. TECHNIQUE: Helical acquisition of images was performed from the lung bases through the pelvis. CONTRAST: Performed without Oral Contrast and with IV Contrast, patient injected with 100 mL of Isovue 300. FINDINGS: LUNG BASES: Normal. LIVER: Too small to characterize hypodense lesion at the right dome. BILIARY SYSTEM: Normal. PANCREAS: Normal. SPLEEN: Normal. ADRENALS: Normal. KIDNEYS: Normal. BOWEL: No obstruction or thickening. PERITONEUM: See pelvis section. No free or focal fluid. LYMPH NODES: No lymphadenopathy. PELVIS: Normal urinary bladder. The uterus demonstrates air within the mildly distended endometrial c anal. There are also tiny foci of air within the right adnexa between the right ovary and the uterus (201:69-73) which may be within the fallopian tube or extragenital within the pelvis. VASCULATURE: No abdominal aortic aneurysm. MUSCULOSKELETAL: Likely injection granuloma of the left lower quadrant subcutaneous tissue. There is subcutaneous emphysema right supraumbilical. Tiny foci of air within the left lateral mid abdominal wall musculature (201:40). Posterior fixation of L5-S1 with interbody spacer device and laminectomy c hanges. IMPRESSION: Expected postablation findings including air within the mildly distended endometrial canal, tiny foci of air within the right adnexa which may be within the fallopian tube or within the pelvis, and air within the anterior abdominal wall and subcutaneous tissues. There is no evidence of significant free air collection or abscess.
[2020-05-02 15:32] LABS: Appearance,Urine Clear (Clear); Bilirubin,Urine Negative (Negative); Blood,Urine Large (Negative); Color,Urine Yellow; Glucose,Urine (UA) Negative (Negative); Ketones,Urine Negative (Negative); Leukocyte Esterase,Urine Moderate (Negative); Mucus,Urine Many /hpf; Nitrite,Urine Negative (Negative); PH, Urine 6.5 (5.0-8.0); Protein,Urine 1+ (Negative); RBC,Urine >182 /hpf (0-5); Squamous Epithelial Cell,Urine <1 /hpf (0-4); Urobilinogen,Urine <2.0 mg/dL (<2.0); WBC,Urine 48 /hpf (0-5)
[2020-05-02 15:40] LABS: Specific Gravity,Urine >1.050 (1.001-1.035)
--- NOTE | 2020-05-02 16:02 | XR ---
EXAMINATION TYPE: XR chest 1V portable DATE OF EXAM: 05/02/2020 COMPARISON: R chest x-ray 05/01/2017 HISTORY: Shortness of breath and cough TECHNIQUE: Single frontal view of the chest is obtained. FINDINGS: There is no focal air space opacity, pleural effusion, or pneumothorax seen. The cardiac silhouette size is within normal limits. The osseous structures are intact. IMPRESSION: No acute process.
[2020-05-02] MEDS ORDERED: MORPHINE SULFATE 4 MG/ML SYRINGE IVP STA (16:14)
[2020-05-02] MEDS ORDERED: DEXAMETHASONE SOD PHOSPHATE 10 MG/ML 1 ML VIAL IV STA (16:14)
--- NOTE | 2020-05-02 16:45 | XR ---
EXAMINATION TYPE: XR soft tissue neck DATE OF EXAM: 05/02/2020 COMPARISON: NONE HISTORY: Short of breath. Cough. TECHNIQUE: 2 views FINDINGS: Cervical vertebra have normal alignment. Prevertebral soft tissues appear normal. Subglotti c trachea is normal. Disc spaces are normal. I see no bony destructive process. Epiglottis is normal. IMPRESSION: Negative cervical soft tissue exam.
[2020-05-02 18:00] VITALS: BP 153/96; PULSE 67; RESP 16
== END 2020-05-02 18:04 | disposition home or self-care (01) ==
LOC: EC 11:31
DX: G89.18 Other acute postprocedural pain (principal); R10.84 Generalized abdominal pain; R10.30 Lower abdominal pain, unspecified; R11.0 Nausea; F17.200 Nicotine dependence, unspecified, uncomplicated; F41.9 Anxiety disorder, unspecified; F32.9 Major depressive disorder, single episode, unspecified; Z79.899 Other long term (current) drug therapy; Z79.890 Hormone replacement therapy; Z88.1 Allergy status to other antibiotic agents; Z98.1 Arthrodesis status
CPT/HCPCS: 36415; 80053; 82150; 83605; 83690; 85025; 81001; 87086; 87077; 87186; 70360; 71045; 74177; 99285; 96374; 96375; 96376; 96361 ×4; J2270; J1100; Q9967

== ENCOUNTER 2020-06-03 09:44 | Observation (INO) | payer OTHER ==
[2020-06-03] MEDS ORDERED: SODIUM CHLORIDE 0.9% 1,000 ML IV STA (10:02)
[2020-06-03 10:25] LABS: Basophils # (A) 0.1 k/uL (0-0.2); Basophils % (A) 1 %; Eosinophils # (A) 0.2 k/uL (0-0.7); Eosinophils % (A) 1 %; HCT 42.6 % (34.0-46.0); HGB 14.9 gm/dL (11.4-16.0); Lymphocytes # (A) 1.7 k/uL (1.0-4.8); Lymphocytes % (A) 11 %; MCH 29.7 pg (25.0-35.0); MCHC 34.8 g/dL (31.0-37.0); MCV 85.1 fL (80.0-100.0); Mean Platelet Volume 7.3; Monocytes # (A) 0.7 k/uL (0-1.0); Monocytes % (A) 5 %; Neutrophils # (A) 12.5 k/uL (1.3-7.7); Neutrophils % (A) 81 %; Platelet Count 403 k/uL (150-450); RBC 5.01 m/uL (3.80-5.40); RDW 13.6 % (11.5-15.5); WBC 15.4 k/uL (3.8-10.6)
[2020-06-03] MEDS ORDERED: MORPHINE SULFATE 4 MG/ML SYRINGE IVP STA (10:29)
[2020-06-03] MEDS ORDERED: ONDANSETRON 4 MG/2 ML VIAL IVP STA ×2 (10:29→13:07)
[2020-06-03 10:39] LABS: ALT 47 U/L (4-34); AST 30 U/L (14-36); African American GFR (CKD) >90 (>60 ml/min/1.73 sqM); Albumin 4.3 g/dL (3.5-5.0); Alkaline Phosphatase 83 U/L (38-126); Anion Gap 9 mmol/L; Blood Urea Nitrogen 6 mg/dL (7-17); Calcium 9.2 mg/dL (8.4-10.2); Carbon Dioxide 25 mmol/L (22-30); Chloride 102 mmol/L (98-107); Glucose 108 mg/dL (74-99); Lipase 38 U/L (23-300); Non-African American GFR(CKD) >90 (>60 ml/min/1.73 sqM); Potassium 3.9 mmol/L (3.5-5.1); Sodium 136 mmol/L (137-145); Total Bilirubin 0.8 mg/dL (0.2-1.3); Total Protein 7.6 g/dL (6.3-8.2)
[2020-06-03 10:41] LABS: Appearance,Urine Clear (Clear); Bacteria,Urine Rare /hpf; Bilirubin,Urine Negative (Negative); Blood,Urine Small (Negative); Color,Urine Yellow; Glucose,Urine (UA) Negative (Negative); Ketones,Urine Negative (Negative); Leukocyte Esterase,Urine Moderate (Negative); Mucus,Urine Many /hpf; Nitrite,Urine Negative (Negative); Protein,Urine Trace (Negative); RBC,Urine 7 /hpf (0-5); Specific Gravity,Urine 1.019 (1.001-1.035); Squamous Epithelial Cell,Urine 1 /hpf (0-4); Urobilinogen,Urine <2.0 mg/dL (<2.0); WBC,Urine 5 /hpf (0-5)
[2020-06-03] MEDS ORDERED: SODIUM CHLORIDE 0.9% 1,000 ML IV ONE (11:42)
--- NOTE | 2020-06-03 12:24 | US ---
EXAMINATION TYPE: US transvaginal DATE OF EXAM: 06/03/2020 COMPARISON: US dated 02/27/2020 CLINICAL HISTORY: pelvic pain, fevers, recent ablation. 05-01-20 endometrial ablation. EC patient wit h fever, N&V, generalized abd pain, constipation, continued vaginal TECHNIQUE: Transvaginal (TV). Transvaginal to assess endometrium Date of LMP: prior to endometrial ablation EXAM MEASUREMENTS: Uterus: 8.9 x 6.2 x 7.0 cm Endometrial Stripe: 1.7 cm Right Ovary: 6.0 x 4.7 x 6.3 cm Left Ovary: 4.7 x 4.1 x 2.3 cm 1. Uterus: Retroverted Nabothian Cyst in cervix = 1.0 x 0.9 x 0.8cm 2. Endometrium: hyperechoic lower endometrium compared to upper endometrium; thickened post endometr ial ablation 3. Right Ovary: enlarged ovary, multifollicular with largest cyst = 4.9 x 3.9m x 3.8cm 4. Left Ovary: multiple small follicles and largest = 1.2 x 1.5 x 0.7cm and exophytic in location. Spectral, color and waveform doppler imaging shows arterial and venous flow within the ovaries. 5. Bilateral Adnexa: wnl 6. Posterior cul-de-sac: small amount of free fluid here = 3.0 x 1.7 x 1.5cm. IMPRESSION: Thickened endometrium. Partially echogenic appearance may be related to procedure but is indeterminate. Right ovarian cyst.
--- NOTE | 2020-06-03 13:14 | CT ---
EXAMINATION TYPE: CT abdomen pelvis w con DATE OF EXAM: 06/03/2020 HISTORY: Abdominal pain, fever, recent endometrial ablation CT DLP: 1820.9mGycm Automated Exposure Control for Dose Reduction was Utilized. CONTRAST: CT scan of the abdomen and pelvis is performed without oral but with IV Contrast, patient injected wi th 100 mL of Isovue 300. COMPARISON: CT abdomen and pelvis May 02, 2020 and older CTs FINDINGS: LUNG BASES: No significant abnormality is appreciated. LIVER/GB: Liver size is stable and upper limits of normal. PANCREAS: No significant abnormality is seen. SPLEEN: No significant abnormality is seen. ADRENALS: No significant abnormality is seen. KIDNEYS: Symmetric cortical medullary uptake and excretion without hydronephrosis seen bilaterally. BOWEL: Suboptimal evaluation without enteric contrast. No suspicious small or large bowel dilatation. UTERUS/ADNEXA: Persistent heterogeneous lobulated uterus anteverted in shape extending to the left of midline. LYMPH NODES: No greater than 1cm abdominal or pelvic lymph nodes are appreciated. OSSEOUS STRUCTURES: Postsurgical changes lumbosacral junction redemonstrated. Alignment stable and sa tisfactory . Small focus of central endometrial air axial image 73 improved from prior. New Right pel skip 4.7 cm low dense lesion favor simple thin-walled cyst. [id number] ill-defined fluid and fat stranding superior pelvis just above the uterus. No persistent foci of free air outside the uterus o n current study. Some poorly defined small fluid collections along posterior-superior margin of uteru s axial image 68 remain present. OTHER: Heterogeneous soft tissue anterior left pelvis presumed scar tissue redemonstrated. IMPRESSION: Persistence of central endometrial area and surrounding fluid and fat stranding superiorl y over one month after ablation is worrisome for infectious etiology/endometritis.
[2020-06-03] MEDS ORDERED: GENTAMICIN PER PHARMACY MISCELLANE PRN (13:47)
[2020-06-03] MEDS: MORPHINE SULFATE 4 MG/ML SYRINGE IVP PRN ×2 (14:23→18:58)
[2020-06-03] MEDS ORDERED: GENTAMICIN 380 MG in SODIUM CHLORIDE 0.9% 100 ML IVPB ONE (14:30)
[2020-06-03] MEDS ORDERED: NALOXONE 0.4 MG/ML 1 ML VIAL IV PRN (14:32)
[2020-06-03] MEDS ORDERED: ONDANSETRON 4 MG/2 ML VIAL IVP PRN (14:32)
--- NOTE | 2020-06-03 14:32 | ED ---
Abdominal Pain HPI - General Chief Complaint: Abdominal Pain Stated Complaint: Female Time Seen by Provider: 06/03/20 09:50 Source: patient Mode of arrival: wheelchair Limitations: no limitations - History of Present Illness Initial Comments: 34-year-old female who presents emergency Department with reported pelvic pain. She is a patient of Dr. Hoffman'yessenia. On May 01 she had an endometrial ablation. She followed up on May 02 as she was having postop pain. Patient reports that she was placed on antibiotics at that time for a possible urinary tract infection. She did see Dr. Hoffman in office last week and antibiotic was changed. She was started on amoxicillin on Tuesday. States she's been taking the medications as directed however continues to have low-grade fevers and lower pelvic pain. She has had persistent brown spotting since the procedure. Denies any back or flank pain. No dysuria, hematuria or difficulty voiding. Admits to constipation. She is on [place] for pain control. Patient admits to nausea with vomiting. No additional vaginal discharge. No other alleviating, precipitating or modifying factors - Related Data Home Medications Medication Instructions Recorded Confirmed Sertraline HCl [Zoloft] 100 mg PO DAILY 12/31/15 06/03/20 Levothyroxine Sodium [Synthroid] 25 mcg PO DAILY 04/29/17 06/03/20 Ergocalciferol [Vitamin D2] 50,000 unit PO WE 09/16/18 06/03/20 Albuterol Sulfate [Ventolin HFA] 1 - 2 puff INHALATION RT-Q6H PRN 05/02/20 06/03/20 Amoxicillin 500 mg PO QID 06/03/20 06/03/20 Hydrocodone/Acetaminophen [[place] 1 - 2 tab PO Q6HR PRN 06/03/20 06/03/20 5-325] Previous Rx's Medication Instructions Recorded Phenazopyridine [Pyridium] 200 mg PO TID #9 tablet 06/06/20 Sulfamethox-Tmp 800-160Mg [Bactrim 1 tab PO Q12HR 3 Days #6 tab 06/06/20 DS 800-160 mg] Allergies Allergy/AdvReac Type Severity Reaction Status Date / Time clarithromycin [From Biaxin] AdvReac Severe Diarrhea Verified 06/03/20 17:27 Review of Systems ROS Statement: Those systems with pertinent positive or pertinent negative responses have been documented in the HPI. ROS Other: All systems not noted in ROS Statement are negative. Past Medical History Past Medical History: Chest Pain / Angina, Musculoskeletal Disorder Additional Past Medical History / Comment(s): DDD, recurrent back pain, STOMACH ULCERS, Sinus Tachycardia. MARTIN. Dizziness at times, N/T rt buttocks radiating rt leg,feels like muscle spasms in stomach. History of Any Multi-Drug Resistant Organisms: None Reported Past Surgical History: Back Surgery, Section, Uterine Ablation Additional Past Surgical History / Comment(s): 12/31/15 Revision laminectomy discectomy posterior lumbar decompression fusion, transforiminal lumbar interbody fusion L5-S1 with cell saver and NIM cord monitoring. Other SX: pyloric surgery , low BACK SURGERIES x2, C-Sections x2. Past Anesthesia/Blood Transfusion Reactions: No Reported Reaction Additional Past Anesthesia/Blood Transfusion Reaction / Comment(s): Pt has never recieved blood. Past Psychological History: Anxiety, Depression Smoking Status: Current every day smoker Past Alcohol Use History: None Reported Past Drug Use History: Marijuana - Past Family History Father Family Medical History: Coronary Artery Disease (CAD), Myocardial Infarction ([place]) Additional Family Medical History / Comment(s): Father has stents. He has back issues. Mother Additional Family Medical History / Comment(s): Mother has a bad back. General Exam Limitations: no limitations General appearance: alert, in no apparent distress Head exam: Present: atraumatic, normocephalic, normal inspection Eye exam: Present: normal appearance, PERRL, EOMI. Absent: scleral icterus, conjunctival injection, periorbital swelling ENT exam: Present: normal exam, mucous membranes moist Neck exam: Present: normal inspection. Absent: tenderness, meningismus, lymphadenopathy Respiratory exam: Present: normal lung sounds bilaterally. Absent: respiratory distress, wheezes, rales, rhonchi, stridor Cardiovascular Exam: Present: regular rate, normal rhythm, normal heart sounds. Absent: systolic murmur, diastolic murmur, rubs, gallop, clicks GI/Abdominal exam: Present: soft, tenderness (suprapubic), normal bowel sounds. Absent: distended, guarding, rebound, rigid Extremities exam: Present: normal inspection, full ROM, normal capillary refill. Absent: tenderness, pedal edema, joint swelling, calf tenderness Back exam: Present: normal inspection Neurological exam: Present: alert, oriented X3, CN II-XII intact Psychiatric exam: Present: normal affect, normal mood Skin exam: Present: warm, dry, intact, normal color. Absent: rash Course Vital Signs 06/03/20 06/03/20 06/03/20 09:46 10:48 11:00 Temperature 98.8 F Pulse Rate 100 77 77 Respiratory 18 18 18 Rate Blood Pressure 130/77 110/77 106/54 O2 Sat by Pulse 97 96 96 Oximetry 06/03/20 06/03/20 06/03/20 12:00 13:00 14:00 Temperature Pulse Rate 79 Respiratory 18 18 18 Rate Blood Pressure 110/67 O2 Sat by Pulse 96 96 96 Oximetry 06/03/20 06/03/20 15:00 15:40 Temperature 98.8 F Pulse Rate 79 Respiratory 18 18 Rate Blood Pressure 110/67 O2 Sat by Pulse 96 96 Oximetry - Reevaluation(s) Reevaluation #1: Spoke with Dr. Hoffman 06/03/20 14:15 Medical Decision Making - Medical Decision Making Upon arrival the patient is placed into room 18. A thorough history and physical exam was performed. Peripheral IV is established. Patient given pain and nausea medications. Laboratory studies were conducted. White blood cell count is 15.4. I did order CT of the patient's abdomen and pelvis that she reports that Dr. Hoffman had her scheduled for one on Tuesday. It demonstrates persistence of central endometrial area and surrounding fat in fluid stranding superiorly which is concerning for infectious etiology/endometritis. The patient was given a dose of Zosyn and gentamicin. Called and discussed the case with Dr. Hoffman who agreed to admit the patient. Nausea medications and pain medications ordered. Patient remained in stable condition awaiting a bed - Lab Data Result diagrams: 06/04/20 06:21 06/06/20 08:02 Lab Results 06/03/20 06/03/20 06/03/20 Range/Units 10:10 10:10 10:10 WBC 15.4 H (3.8-10.6) k/uL RBC 5.01 (3.80-5.40) m/uL Hgb 14.9 (11.4-16.0) gm/dL Hct 42.6 (34.0-46.0) % MCV 85.1 (80.0-100.0) fL MCH 29.7 (25.0-35.0) pg MCHC 34.8 (31.0-37.0) g/dL RDW 13.6 (11.5-15.5) % Plt Count 403 (150-450) k/uL MPV 7.3 Neutrophils % 81 % Lymphocytes % 11 % Monocytes % 5 % Eosinophils % 1 % Basophils % 1 % Neutrophils # 12.5 H (1.3-7.7) k/uL Lymphocytes # 1.7 (1.0-4.8) k/uL Monocytes # 0.7 (0-1.0) k/uL Eosinophils # 0.2 (0-0.7) k/uL Basophils # 0.1 (0-0.2) k/uL Sodium (137-145) mmol/L Potassium (3.5-5.1) mmol/L Chloride (98-107) mmol/L Carbon Dioxide (22-30) mmol/L Anion Gap mmol/L BUN (7-17) mg/dL Creatinine (0.52-1.04) mg/dL Est GFR (CKD-EPI)AfAm (>60 ml/min/1.73 sqM) Est GFR (CKD-EPI)NonAf (>60 ml/min/1.73 sqM) Glucose (74-99) mg/dL Plasma Lactic Acid Luigi (0.7-2.0) mmol/L Calcium (8.4-10.2) mg/dL Total Bilirubin (0.2-1.3) mg/dL AST (14-36) U/L ALT (4-34) U/L Alkaline Phosphatase (38-126) U/L Total Protein (6.3-8.2) g/dL Albumin (3.5-5.0) g/dL Lipase (23-300) U/L Urine Color Yellow Urine Appearance Clear (Clear) Urine pH 7.0 (5.0-8.0) Ur Specific [place] 1.019 (1.001-1.035) Urine Protein Trace H (Negative) Urine Glucose (UA) Negative (Negative) Urine Ketones Negative (Negative) Urine Blood Small H (Negative) Urine Nitrite Negative (Negative) Urine Bilirubin Negative (Negative) Urine Urobilinogen <2.0 (<2.0) mg/dL Ur Leukocyte Esterase Moderate H (Negative) Urine RBC 7 H (0-5) /hpf Urine WBC 5 (0-5) /hpf Ur Squamous Epith Cells 1 (0-4) /hpf Urine Bacteria Rare H (None) /hpf Urine Mucus Many H (None) /hpf Urine HCG, Qual Not Detected (Not Detectd) Random Gentamicin ug/mL C. difficile (EIA) Intrp (Negative) Coronavirus (PCR) (Not Detected) 06/03/20 06/03/20 06/03/20 Range/Units 10:10 10:10 18:20 WBC (3.8-10.6) k/uL RBC (3.80-5.40) m/uL Hgb (11.4-16.0) gm/dL Hct (34.0-46.0) % MCV (80.0-100.0) fL MCH (25.0-35.0) pg MCHC (31.0-37.0) g/dL RDW (11.5-15.5) % Plt Count (150-450) k/uL MPV Neutrophils % % Lymphocytes % % Monocytes % % Eosinophils % % Basophils % % Neutrophils # (1.3-7.7) k/uL Lymphocytes # (1.0-4.8) k/uL Monocytes # (0-1.0) k/uL Eosinophils # (0-0.7) k/uL Basophils # (0-0.2) k/uL Sodium 136 L (137-145) mmol/L Potassium 3.9 (3.5-5.1) mmol/L Chloride 102 (98-107) mmol/L Carbon Dioxide 25 (22-30) mmol/L Anion Gap 9 mmol/L BUN 6 L (7-17) mg/dL Creatinine 0.64 (0.52-1.04) mg/dL Est GFR (CKD-EPI)AfAm >90 (>60 ml/min/1.73 sqM) Est GFR (CKD-EPI)NonAf >90 (>60 ml/min/1.73 sqM) Glucose 108 H (74-99) mg/dL Plasma Lactic Acid Luigi 0.7 (0.7-2.0) mmol/L Calcium 9.2 (8.4-10.2) mg/dL Total Bilirubin 0.8 (0.2-1.3) mg/dL AST 30 (14-36) U/L ALT 47 H (4-34) U/L Alkaline Phosphatase 83 (38-126) U/L Total Protein 7.6 (6.3-8.2) g/dL Albumin 4.3 (3.5-5.0) g/dL Lipase 38 (23-300) U/L Urine Color Urine Appearance (Clear) Urine pH (5.0-8.0) Ur Specific [place] (1.001-1.035) Urine Protein (Negative) Urine Glucose (UA) (Negative) Urine Ketones (Negative) Urine Blood (Negative) Urine Nitrite (Negative) Urine Bilirubin (Negative) Urine Urobilinogen (<2.0) mg/dL Ur Leukocyte Esterase (Negative) Urine RBC (0-5) /hpf Urine WBC (0-5) /hpf Ur Squamous Epith Cells (0-4) /hpf Urine Bacteria (None) /hpf Urine Mucus (None) /hpf Urine HCG, Qual (Not Detectd) Random Gentamicin ug/mL C. difficile (EIA) Intrp (Negative) Coronavirus (PCR) Not Detected (Not Detected) 06/03/20 06/03/20 06/04/20 Range/Units 20:45 23:00 06:21 WBC 10.3 (3.8-10.6) k/uL RBC 4.07 (3.80-5.40) m/uL Hgb 12.1 (11.4-16.0) gm/dL Hct 35.6 (34.0-46.0) % MCV 87.5 (80.0-100.0) fL MCH 29.9 (25.0-35.0) pg MCHC 34.1 (31.0-37.0) g/dL RDW 13.7 (11.5-15.5) % Plt Count 303 (150-450) k/uL MPV 7.3 Neutrophils % 71 % Lymphocytes % 20 % Monocytes % 6 % Eosinophils % 2 % Basophils % 0 % Neutrophils # 7.3 (1.3-7.7) k/uL Lymphocytes # 2.0 (1.0-4.8) k/uL Monocytes # 0.6 (0-1.0) k/uL Eosinophils # 0.2 (0-0.7) k/uL Basophils # 0.0 (0-0.2) k/uL Sodium (137-145) mmol/L Potassium (3.5-5.1) mmol/L Chloride (98-107) mmol/L Carbon Dioxide (22-30) mmol/L Anion Gap mmol/L BUN (7-17) mg/dL Creatinine (0.52-1.04) mg/dL Est GFR (CKD-EPI)AfAm (>60 ml/min/1.73 sqM) Est GFR (CKD-EPI)NonAf (>60 ml/min/1.73 sqM) Glucose (74-99) mg/dL Plasma Lactic Acid Luigi (0.7-2.0) mmol/L Calcium (8.4-10.2) mg/dL Total Bilirubin (0.2-1.3) mg/dL AST (14-36) U/L ALT (4-34) U/L Alkaline Phosphatase (38-126) U/L Total Protein (6.3-8.2) g/dL Albumin (3.5-5.0) g/dL Lipase (23-300) U/L Urine Color Urine Appearance (Clear) Urine pH (5.0-8.0) Ur Specific [place] (1.001-1.035) Urine Protein (Negative) Urine Glucose (UA) (Negative) Urine Ketones (Negative) Urine Blood (Negative) Urine Nitrite (Negative) Urine Bilirubin (Negative) Urine Urobilinogen (<2.0) mg/dL Ur Leukocyte Esterase (Negative) Urine RBC (0-5) /hpf Urine WBC (0-5) /hpf Ur Squamous Epith Cells (0-4) /hpf Urine Bacteria (None) /hpf Urine Mucus (None) /hpf Urine HCG, Qual (Not Detectd) Random Gentamicin 2.4 ug/mL C. difficile (EIA) Intrp Negative (Negative) Coronavirus (PCR) (Not Detected) 06/04/20 Range/Units 06:21 WBC (3.8-10.6) k/uL RBC (3.80-5.40) m/uL Hgb (11.4-16.0) gm/dL Hct (34.0-46.0) % MCV (80.0-100.0) fL MCH (25.0-35.0) pg MCHC (31.0-37.0) g/dL RDW (11.5-15.5) % Plt Count (150-450) k/uL MPV Neutrophils % % Lymphocytes % % Monocytes % % Eosinophils % % Basophils % % Neutrophils # (1.3-7.7) k/uL Lymphocytes # (1.0-4.8) k/uL Monocytes # (0-1.0) k/uL Eosinophils # (0-0.7) k/uL Basophils # (0-0.2) k/uL Sodium 138 (137-145) mmol/L Potassium 3.9 (3.5-5.1) mmol/L Chloride 107 (98-107) mmol/L Carbon Dioxide 28 (22-30) mmol/L Anion Gap 3 mmol/L BUN 5 L (7-17) mg/dL Creatinine 0.64 (0.52-1.04) mg/dL Est GFR (CKD-EPI)AfAm >90 (>60 ml/min/1.73 sqM) Est GFR (CKD-EPI)NonAf >90 (>60 ml/min/1.73 sqM) Glucose 107 H (74-99) mg/dL Plasma Lactic Acid Luigi (0.7-2.0) mmol/L Calcium 8.1 L (8.4-10.2) mg/dL Total Bilirubin (0.2-1.3) mg/dL AST (14-36) U/L ALT (4-34) U/L Alkaline Phosphatase (38-126) U/L Total Protein (6.3-8.2) g/dL Albumin (3.5-5.0) g/dL Lipase (23-300) U/L Urine Color Urine Appearance (Clear) Urine pH (5.0-8.0) Ur Specific [place] (1.001-1.035) Urine Protein (Negative) Urine Glucose (UA) (Negative) Urine Ketones (Negative) Urine Blood (Negative) Urine Nitrite (Negative) Urine Bilirubin (Negative) Urine Urobilinogen (<2.0) mg/dL Ur Leukocyte Esterase (Negative) Urine RBC (0-5) /hpf Urine WBC (0-5) /hpf Ur Squamous Epith Cells (0-4) /hpf Urine Bacteria (None) /hpf Urine Mucus (None) /hpf Urine HCG, Qual (Not Detectd) Random Gentamicin ug/mL C. difficile (EIA) Intrp (Negative) Coronavirus (PCR) (Not Detected) Disposition Clinical Impression: Pelvic pain, Endometritis Disposition: ADMITTED IP TO THIS [facility] Condition: Stable Is patient prescribed a controlled substance at d/c from ED?: No Decision to Admit Reason: Admit from EC Decision Date: 06/03/20 Decision Time: 14:32
[2020-06-03] MEDS: PIPERACILLIN-TAZOBACTAM 3.375 GM in SODIUM CHLORIDE 0.9% 100 ML IVPB SCH ×2 (17:01→23:39)
[2020-06-03] MEDS: SODIUM CHLORIDE 0.9% 1,000 ML IV SCH (17:11)
--- NOTE | 2020-06-03 18:11 | P.HPOB ---
History of Present Illness H&P Date: 06/03/20 Chief Complaint: Abdominal pain 34 year old presents 1 month s/p D&C hysteroscopy, endometrial ablation with novasure, laparoscopic aspiration of bilateral ovarian cysts and lysis of adhesions with placement of interceed. She's been having on and off pain since the procedure. I diagnosed a urinary tract infection last week and put her on amoxicillin. Her pain started to improve but it worsened again and she had a lot of nausea and vomiting, constipation with intermittent diarrhea. She presented to the emergency room with a white count of 15. There is fluid seen within the endometrial cavity and superior to the uterus. It is thought that she possibly has some endometritis and was placed on gentamicin and Zosyn, pain medication and admitted for observation. Review of Systems All systems: negative Constitutional: Denies chills, Denies fever Eyes: denies blurred vision, denies pain Ears, nose, mouth and throat: Denies headache, Denies sore throat Cardiovascular: Denies chest pain, Denies shortness of breath Respiratory: Denies cough Gastrointestinal: Reports abdominal pain, Reports bloating, Reports constipation, Reports diarrhea, Reports nausea, Reports vomiting, Denies hematemesis Genitourinary: Denies dysuria, Denies hematuria Musculoskeletal: Denies myalgias Integumentary: Denies pruritus, Denies rash Neurological: Denies numbness, Denies weakness Psychiatric: Denies anxiety, Denies depression Endocrine: Denies fatigue, Denies weight change Past Medical History Past Medical History: Chest Pain / Angina, Musculoskeletal Disorder Additional Past Medical History / Comment(s): DDD, recurrent back pain, STOMACH ULCERS, Sinus Tachycardia. MARTIN. Dizziness at times, N/T rt buttocks radiating rt leg, muscle spasms in right leg History of Any Multi-Drug Resistant Organisms: None Reported Past Surgical History: Back Surgery, Section, Uterine Ablation Additional Past Surgical History / Comment(s): 12/31/15 Revision laminectomy discectomy posterior lumbar decompression fusion, transforiminal lumbar interbody fusion L5-S1 with cell saver and NIM cord monitoring. Other SX: pyloric surgery , low BACK SURGERIES x3, C-Sections x2. Past Anesthesia/Blood Transfusion Reactions: No Reported Reaction Additional Past Anesthesia/Blood Transfusion Reaction / Comment(s): Pt has never recieved blood. Past Psychological History: Anxiety, Depression Additional Psychological History / Comment(s): Pt lives with her 2 children. Her fiancee has a son who comes for visits. She is normally independent. She uses no assistive devices. She has no home care agency. She drives a car. Smoking Status: Current every day smoker Past Alcohol Use History: None Reported Additional Past Alcohol Use History / Comment(s): Pt started smoking at age 12 yrs. She quit 02/18/15 with one small relapse period. Past Drug Use History: Marijuana - Past Family History Father Family Medical History: Coronary Artery Disease (CAD), Myocardial Infarction ([place]) Additional Family Medical History / Comment(s): Father has stents. He has back issues. Mother Family Medical History: Musculoskeletal Disorder Additional Family Medical History / Comment(s): Mother has a bad back. Medications and Allergies Home Medications Medication Instructions Recorded Confirmed Type Sertraline HCl [Zoloft] 100 mg PO DAILY 12/31/15 06/03/20 History Levothyroxine Sodium [Synthroid] 25 mcg PO DAILY 04/29/17 06/03/20 History Ergocalciferol [Vitamin D2] 50,000 unit PO WE 09/16/18 06/03/20 History Albuterol Sulfate [Ventolin HFA] 1 - 2 puff INHALATION RT-Q6H PRN 05/02/20 06/03/20 History Amoxicillin 500 mg PO QID 06/03/20 06/03/20 History Hydrocodone/Acetaminophen [[place] 1 - 2 tab PO Q6HR PRN 06/03/20 06/03/20 History 5-325] Allergies Allergy/AdvReac Type Severity Reaction Status Date / Time clarithromycin [From Biaxin] AdvReac Severe Diarrhea Verified 06/03/20 17:27 Exam Osteopathic Statement: *. No significant issues noted on an osteopathic structural exam other than those noted in the History and Physical/Consult. Vital Signs Temp Pulse Pulse Resp BP BP Pulse Ox 06/03/20 16:00 98.3 F 84 16 134/85 98 06/03/20 15:40 98.8 F 79 18 110/67 96 06/03/20 15:00 18 96 06/03/20 14:00 18 96 06/03/20 13:00 18 96 06/03/20 12:00 79 18 110/67 96 06/03/20 11:00 77 18 106/54 96 06/03/20 10:48 77 18 110/77 96 06/03/20 09:46 98.8 F 100 18 130/77 97 Intake and Output 06/03/20 06/03/20 06/03/20 06:59 14:59 22:59 Intake Total 480 Output Total 200 Balance 280 Intake: Oral 480 Output: Urine 200 Other: # Voids 1 Weight 105.233 kg 104.1 kg Heart: Regular rate and rhythm Lungs: Clear to us station bilaterally Abdomen soft, no rigidity, no rebound, tender with deep palpation in the mid epigastrium and over the uterus. Results Result Diagrams: 06/03/20 10:10 06/03/20 10:10 Abnormal Lab Results - Last 24 Hours (Table) 06/03/20 06/03/20 06/03/20 Range/Units 10:10 10:10 10:10 WBC 15.4 H (3.8-10.6) k/uL Neutrophils # 12.5 H (1.3-7.7) k/uL Sodium 136 L (137-145) mmol/L BUN 6 L (7-17) mg/dL Glucose 108 H (74-99) mg/dL ALT 47 H (4-34) U/L Urine Protein Trace H (Negative) Urine Blood Small H (Negative) Ur Leukocyte Esterase Moderate H (Negative) Urine RBC 7 H (0-5) /hpf Urine Bacteria Rare H (None) /hpf Urine Mucus Many H (None) /hpf Assessment and Plan (1) Endometritis Current Visit: Yes Status: Acute Code(s): N71.9 - INFLAMMATORY DISEASE OF UTERUS, UNSPECIFIED SNOMED Code(s): 54605529 (2) Nausea vomiting and diarrhea Current Visit: No Status: Acute Code(s): R11.2 - NAUSEA WITH VOMITING, UNSPECIFIED; R19.7 - DIARRHEA, UNSPECIFIED SNOMED Code(s): 0843356 (3) Leukocytosis Current Visit: Yes Status: Acute Code(s): D72.829 - ELEVATED WHITE BLOOD CELL COUNT, UNSPECIFIED SNOMED Code(s): 399783772 (4) Pelvic pain Current Visit: Yes Status: Acute Code(s): R10.2 - PELVIC AND PERINEAL PAIN SNOMED Code(s): 52011177 (5) Status post robot-assisted surgical procedure Current Visit: Yes Status: Acute Code(s): Z98.890 - OTHER SPECIFIED POSTPROCEDURAL STATES SNOMED Code(s): 625729313 (6) Status post endometrial ablation Current Visit: Yes Status: Acute Code(s): Z98.890 - OTHER SPECIFIED POSTPROCEDURAL STATES SNOMED Code(s): 496253209224015 Plan: 1. Continue gently Zosyn 2. IV fluids 3. C. diff for diarrhea 4. Covid testPCR 5. Pepcid 6. Pain medications
[2020-06-03] MEDS ORDERED: bisacodyL 10 MG SUPP RECTAL STA (18:59)
[2020-06-03] MEDS: KETOROLAC 15 MG/ML 1 ML VIAL IVP PRN (19:07)
[2020-06-03] MEDS: FAMOTIDINE 20 MG/2 ML VIAL IV SCH (20:47)
[2020-06-03] MEDS: NICOTINE 21MG/24HR PATCH TRANSDERM SCH (20:57)
[2020-06-03] MEDS ORDERED: NA PHOS,M-B/NA PHOS,DI-BA 133 ML ENEMA RECTAL ONE (23:30)
[2020-06-04] MEDS: KETOROLAC 15 MG/ML 1 ML VIAL IVP PRN ×4 (01:18→18:53)
[2020-06-04] MEDS: SODIUM CHLORIDE 0.9% 1,000 ML IV SCH ×3 (01:24→19:57)
[2020-06-04] MEDS: MORPHINE SULFATE 4 MG/ML SYRINGE IVP PRN ×2 (04:13→14:23)
[2020-06-04 06:46] LABS: Basophils % (A) 0 %; Eosinophils # (A) 0.2 k/uL (0-0.7); Eosinophils % (A) 2 %; HCT 35.6 % (34.0-46.0); HGB 12.1 gm/dL (11.4-16.0); Lymphocytes % (A) 20 %; MCH 29.9 pg (25.0-35.0); MCHC 34.1 g/dL (31.0-37.0); MCV 87.5 fL (80.0-100.0); Mean Platelet Volume 7.3; Monocytes # (A) 0.6 k/uL (0-1.0); Monocytes % (A) 6 %; Neutrophils # (A) 7.3 k/uL (1.3-7.7); Neutrophils % (A) 71 %; Platelet Count 303 k/uL (150-450); RBC 4.07 m/uL (3.80-5.40); RDW 13.7 % (11.5-15.5); WBC 10.3 k/uL (3.8-10.6)
[2020-06-04 06:49] LABS: African American GFR (CKD) >90 (>60 ml/min/1.73 sqM); Anion Gap 3 mmol/L; Blood Urea Nitrogen 5 mg/dL (7-17); Calcium 8.1 mg/dL (8.4-10.2); Carbon Dioxide 28 mmol/L (22-30); Chloride 107 mmol/L (98-107); Glucose 107 mg/dL (74-99); Non-African American GFR(CKD) >90 (>60 ml/min/1.73 sqM); Potassium 3.9 mmol/L (3.5-5.1); Sodium 138 mmol/L (137-145)
[2020-06-04] MEDS: LEVOTHYROXINE 25 MCG TAB PO SCH (06:55)
[2020-06-04] MEDS: PIPERACILLIN-TAZOBACTAM 3.375 GM in SODIUM CHLORIDE 0.9% 100 ML IVPB SCH ×2 (08:33→16:10)
[2020-06-04] MEDS: FAMOTIDINE 20 MG/2 ML VIAL IV SCH ×2 (08:35→20:16)
[2020-06-04] MEDS: NICOTINE 21MG/24HR PATCH TRANSDERM SCH (08:35)
--- NOTE | 2020-06-04 08:47 | P.PN ---
Progress Note - Text Progress Note Date: 06/04/20 S/P laparoscopic cyst aspiration, lysis of adhesions and D&C hysteroscopy with Novasure. She presented yesterday with a wbc of 15 and pain in her abdomen and pelvis. She is on gent and zosyn. Her nausea has improved, her pain is better controlled with toradol. wbc count today is 10 and she remains afebrile. c/o feeling like constipated in the night. A dulcolax suppository was administered only little pieces came out. I do believe that she is feeling rectal pressure from an ovarian cyst on the right. During her laparoscopy I did note that the ovaries were in the posterior cul-de-sac. Her upper abdominal pain has improved with Pepcid and antibiotics. We are awaiting the results of covid test. Vital signs stable Heart regular rate and rhythm Lungs clear bilaterally Abdomen soft, nondistended, no rigidity or rebound. There is minimal tenderness in the mid epigastrium, still quite tender in the low pelvis over the uterus. Assessment 1. Endometritis after an endometrial ablation 2. Abdominal painconsidering this to possibly be related to the endometritis or possibly also some underlying heartburn issue Plan 1. Continue gent and Zosyn 2. CBC in the morning 3. Serial abdominal exams 4. Will try to continue with the Toradol or ibuprofen and limit Altus.
[2020-06-04] MEDS: SERTRALINE 100 MG TAB PO SCH (11:18)
[2020-06-04] MEDS: GENTAMICIN 380 MG in SODIUM CHLORIDE 0.9% 100 ML IVPB SCH (14:50)
[2020-06-05] MEDS: KETOROLAC 15 MG/ML 1 ML VIAL IVP PRN ×4 (00:16→18:15)
[2020-06-05] MEDS: PIPERACILLIN-TAZOBACTAM 3.375 GM in SODIUM CHLORIDE 0.9% 100 ML IVPB SCH ×4 (00:19→23:26)
[2020-06-05] MEDS: SODIUM CHLORIDE 0.9% 1,000 ML IV SCH ×3 (00:19→22:23)
[2020-06-05] MEDS: ALBUTEROL NEBULIZED 2.5 MG/3 ML INHALATION PRN ×2 (06:17→15:55)
[2020-06-05] MEDS: LEVOTHYROXINE 25 MCG TAB PO SCH (06:29)
[2020-06-05] MEDS: MORPHINE SULFATE 4 MG/ML SYRINGE IVP PRN ×2 (06:58→19:14)
[2020-06-05] MEDS: FAMOTIDINE 20 MG/2 ML VIAL IV SCH (07:44)
[2020-06-05] MEDS: SERTRALINE 100 MG TAB PO SCH (08:43)
[2020-06-05] MEDS: NICOTINE 21MG/24HR PATCH TRANSDERM SCH (08:43)
--- NOTE | 2020-06-05 09:42 | P.PN ---
Progress Note - Text Progress Note Date: 06/05/20 Pt seen and examined today. She remains afebrile and her low pelvic pain is improving. She is still c/o midepigastic pain, and constipation. she has not had a bowel movement since the suppository on her first night of admission. She is requesting to see the GI doctor while she is here and I will consult them for her due to the constipation. I encouraged her to walk more today. VSS Heart: RRR Lungs: CTAB Abdomen: soft, nondistended, no guarding or rigidity. no rebound. There is tenderness over the suprapubic area with deep palpation and pain in the mid epigastrum with deep palpation. A1. S/P laparoscopic drainage of ovarian cysts, MIA and novasure ablation 1 month ago 2. endometritis 3. midepigastic pain and constipation P1. GI consulation 2. cont abx
[2020-06-05] MEDS: polyethylene glycoL 3350 17 GM POWD.PACK PO SCH (11:10)
[2020-06-05] MEDS ORDERED: MAGNESIUM CITRATE 296 ML BOTTLE PO ONE (13:50)
[2020-06-05] MEDS: GENTAMICIN 380 MG in SODIUM CHLORIDE 0.9% 100 ML IVPB SCH (14:06)
[2020-06-05] MEDS ORDERED: NICOTINE 21MG/24HR PATCH TRANSDERM STA (18:23)
[2020-06-05] MEDS: FAMOTIDINE 20 MG TAB PO SCH (18:25)
--- NOTE | 2020-06-05 22:57 | P.CONS ---
History of Present Illness - Reason for Consult Consult date: 06/05/20 Constipation Requesting physician: Damaris Hoffman - Chief Complaint Pelvic pain - History of Present Illness 34-year-old female who is status post D&C hysteroscopy, endometrial ablation with NovaSure who presented to the hospital due to pelvic pain. The patient had been seen in the outpatient setting and was receiving treatment for a urinary tract infection. She presented to the hospital for pain in the pelvis with associated low-grade fevers. Currently the patient is being treated for endometritis. She reports that previously she had been having some loose madalyn quent bowel movements prior to her surgery. Over the past 2 weeks however she has been suffering with constipation. Currently she is reporting that she has gone 4 days prior to having a bowel movement. She only reported a small amount of liquid stool after receiving an enema, but does report having a small bowel movement today. She is also reporting some discomfort in her epigastric region. No nausea vomiting reported. 34 year old presents 1 month s/p D&C hysteroscopy, endometrial ablation with novasure, laparoscopic aspiration of bilateral ovarian cysts and lysis of adhesions with placement of interceed. She's been having on and off pain since the procedure. I diagnosed a urinary tract infection last week and put her on amoxicillin. Her pain started to improve but it worsened again and she had a lot of nausea and vomiting, constipation with intermittent diarrhea. She pre sented to the emergency room with a white count of 15. There is fluid seen within the endometrial cavity and superior to the uterus. It is thought that she possibly has some endometritis and was placed on gentamicin and Zosyn, pain medication and admitted for observation. 34-year-old female who presents emergency Department with reported pelvic pain. She is a patient of Dr. Liu. On May 01 she had an endometrial ablation. She followed up on May 02 as she was having postop pain. Patient reports that she was placed on antibiotics at that time for a possible urinary tract infection. She did see Dr. Hoffman in office last week and antibiotic was changed. She was started on amoxicillin on Tuesday. States she's been taking the medications as directed however continues to have low-grade fevers and lower pelvic pain. She has had persistent brown spotting since the procedure. Denies any back or flank pain. No dysuria, hematuria or difficulty voiding. Admits to constipation. She is on [place] for pain control. Patient admits to nausea with vomiting. No additional vaginal discharge. No other alleviating, precipitating or modifying factors Review of Systems REVIEW OF SYSTEMS: CONSTITUTIONAL: Denies any fevers, chills, weight change or fatigue at this time, she had some low-grade fevers prior to presentation. CARDIOVASCULAR: Denies any chest pain, palpitations high or low blood pressures RESPIRATORY: Denies any shortness of breath, hemoptysis or cough. GENITOURINARY: No dysuria or hematuria, currently receiving treatment for endometritis with complaints of pelvic pain. MUSCULOSKELETAL: No weakness reported. SKIN: Denies any new rashes or lesions, jaundice or pallor. PSYCHIATRIC: Denies any depression or anxiety. NEUROLOGY: Denies headache, denies any new focal deficits. EARS/NOSE/THROAT: No recent hearing change, congestion, nasal discharge or sore throat. EYES: No pain in eyes, discharge or change in vision. GASTROINTESTINAL: As per HPI. Past Medical History Past Medical History: Chest Pain / Angina, Musculoskeletal Disorder Additional Past Medical History / Comment(s): DDD, recurrent back pain, STOMACH ULCERS, Sinus Tachycardia. MARTIN. Dizziness at times, N/T rt buttocks radiating rt leg, muscle spasms in right leg History of Any Multi-Drug Resistant Organisms: None Reported Past Surgical History: Back Surgery, Section, Uterine Ablation Additional Past Surgical History / Comment(s): 12/31/15 Revision laminectomy discectomy posterior lumbar decompression fusion, transforiminal lumbar interbody fusion L5-S1 with cell saver and NIM cord monitoring. Other SX: pyloric surgery INFANT, low BACK SURGERIES x3, C-Sections x2. Past Anesthesia/Blood Transfusion Reactions: No Reported Reaction Additional Past Anesthesia/Blood Transfusion Reaction / Comm: Pt has never recieved blood. Past Psychological History: Anxiety, Depression Additional Psychological History / Comment(s): Pt lives with her 2 children. Her fiancee has a son who comes for visits. She is normally independent. She uses no assistive devices. She has no home care agency. She drives a car. Smoking Status: Current every day smoker Past Alcohol Use History: None Reported Additional Past Alcohol Use History / Comment(s): Pt started smoking at age 12 yrs. She quit 02/18/15 with one small relapse period. Past Drug Use History: Marijuana - Past Family History Father Family Medical History: Coronary Artery Disease (CAD), Myocardial Infarction ([place]) Additional Family Medical History / Comment(s): Father has stents. He has back issues. Mother Family Medical History: Musculoskeletal Disorder Additional Family Medical History / Comment(s): Mother has a bad back. Medications and Allergies Home Medications Medication Instructions Recorded Confirmed Type Sertraline HCl [Zoloft] 100 mg PO DAILY 12/31/15 06/03/20 History Levothyroxine Sodium [Synthroid] 25 mcg PO DAILY 04/29/17 06/03/20 History Ergocalciferol [Vitamin D2] 50,000 unit PO WE 09/16/18 06/03/20 History Albuterol Sulfate [Ventolin HFA] 1 - 2 puff INHALATION RT-Q6H PRN 05/02/20 06/03/20 History Amoxicillin 500 mg PO QID 06/03/20 06/03/20 History Hydrocodone/Acetaminophen [[place] 1 - 2 tab PO Q6HR PRN 06/03/20 06/03/20 History 5-325] Allergies Allergy/AdvReac Type Severity Reaction Status Date / Time clarithromycin [From Biaxin] AdvReac Severe Diarrhea Verified 06/03/20 17:27 Physical Exam Vitals: Vital Signs Temp Pulse Pulse Resp BP BP Pulse Ox 06/05/20 16:05 78 16 06/05/20 15:55 74 16 06/05/20 14:55 98.9 F 77 18 149/96 96 06/05/20 08:25 97.3 F L 75 18 126/84 93 L 06/05/20 06:24 92 06/05/20 06:16 84 06/05/20 01:39 97.3 F L 80 18 128/70 98 06/04/20 20:22 98 F 75 18 129/80 96 Intake and Output 06/05/20 06/05/20 06/05/20 06:59 14:59 22:59 Intake Total 200 Balance 200 Intake: Oral 200 Other: # Voids 3 1 # Bowel Movements 1 On physical examination, patient appears comfortable in no apparent distress. HEAD: Normocephalic, atraumatic. EYES: No scleral icterus. No conjunctival injection. MOUTH: No lesions, tongue midline. NECK: Trachea midline, no gross abnormalities. CHEST: Clear to auscultation with no wheezing or rhonchi appreciated. HEART: Regular rate and rhythm. ABDOMEN: Soft, obese and mildly tender to palpation. Bowel sounds are positive. No organomegaly. No guarding or rigidity. EXTREMITIES: No pedal edema. SKIN: No rashes, no jaundice. NEUROLOGIC: Alert and oriented x3. No focal deficits. Results CBC & Chem 7: 06/04/20 06:21 06/04/20 06:21 CT scan - abdomen: report reviewed Assessment and Plan (1) Constipation Narrative/Plan: 34-year-old female who is status post endometrial ablation, D&C hysteroscopy with NovaSure 1 month ago and presents to the hospital with pelvic pain is currently being treated for endometritis. Patient had been reporting some constipation over the past few weeks. She reports a small liquid stool after suppository and a small bowel movement today. No signs or symptoms of GI bleeding. She does report some epigastric discomfort. No nausea or vomiting. Unclear etiology, may be related to inflammation in the pelvis and abdomen or other etiology. At this time will continue to optimize medical management. Current Visit: Yes Status: Acute Code(s): K59.00 - CONSTIPATION, UNSPECIFIED SNOMED Code(s): 05673124 (2) Endometritis Current Visit: Yes Status: Acute Code(s): N71.9 - INFLAMMATORY DISEASE OF UTERUS, UNSPECIFIED SNOMED Code(s): 51696431 (3) Pelvic pain Current Visit: Yes Status: Acute Code(s): R10.2 - PELVIC AND PERINEAL PAIN SNOMED Code(s): 57458150 Plan: Supportive care Okay for diet as tolerated Continue management by the [facility] service No plans for endoscopic evaluation at this time Patient will be given magnesium citrate and instructed to drink half a bottle, if no results after 6 hours the patient can take the remaining half of the 300 mL bottle Daily bowel regimen with MiraLAX with initiated and patient has been instructed to titrate the medication for daily formed bowel movements Thank you for allowing us to participate in the care of the patient, the GI service will stand by, please call us back with any questions or concerns
[2020-06-06] MEDS: MORPHINE SULFATE 4 MG/ML SYRINGE IVP PRN (02:07)
[2020-06-06] MEDS: SODIUM CHLORIDE 0.9% 1,000 ML IV SCH ×2 (02:10→08:09)
[2020-06-06] MEDS: LEVOTHYROXINE 25 MCG TAB PO SCH (06:16)
[2020-06-06] MEDS: KETOROLAC 15 MG/ML 1 ML VIAL IVP PRN (06:19)
[2020-06-06] MEDS: FAMOTIDINE 20 MG TAB PO SCH (08:08)
[2020-06-06] MEDS: SERTRALINE 100 MG TAB PO SCH (08:08)
[2020-06-06] MEDS: NICOTINE 21MG/24HR PATCH TRANSDERM SCH ×2 (08:09→08:11)
[2020-06-06] MEDS: polyethylene glycoL 3350 17 GM POWD.PACK PO SCH (08:09)
[2020-06-06] MEDS: PIPERACILLIN-TAZOBACTAM 3.375 GM in SODIUM CHLORIDE 0.9% 100 ML IVPB SCH (08:09)
[2020-06-06 08:32] LABS: African American GFR (CKD) >90 (>60 ml/min/1.73 sqM); Non-African American GFR(CKD) >90 (>60 ml/min/1.73 sqM)
[2020-06-06 08:47] VITALS: BP 124/80; PULSE 69; RESP 20; TEMP 97.5
--- NOTE | 2020-06-06 09:21 | P.DS ---
Providers Date of admission: 06/05/20 12:08 Expected date of discharge: 06/06/20 Attending physician: Damaris Hoffman Consults: 06/05/20 09:35 Consult Physician Urgent Consulting Provider: Renetta Quiles Consult Reason/Comments: abdominal pain, constipation Do you want consulting provider notified?: Yes Primary care physician: Celeste Cheng - Discharge Diagnosis(es) (1) Endometritis Current Visit: Yes Status: Acute (2) Nausea vomiting and diarrhea Current Visit: No Status: Acute (3) Leukocytosis Current Visit: Yes Status: Acute (4) Pelvic pain Current Visit: Yes Status: Acute (5) Status post robot-assisted surgical procedure Current Visit: Yes Status: Acute (6) Status post endometrial ablation Current Visit: Yes Status: Acute Hospital Course: Patient presented 1 month after a robotic-assisted laparoscopy with drainage of bilateral ovarian cyst and endometrioma on the right, lysis of adhesions and a D&C, hysteroscopy, endometrial ablation with NovaSure. She was diagnosed with UTI about a week ago and placed on amoxicillin. The pain did improve but then she did have some gastric discomfort possibly related to her constipation. She was admitted with possible endometritis, did have a white blood cell count and low grade fevers. She was placed on gentamicin and Zosyn for the last few days. She has been steadily improving, her white count did stop in she has been afebrile. She had a GI consult for the constipation and intermittent diarrhea. She was able to go the bathroom with some MiraLAX and mag citrate. She feels a lot better that way. She's having a little bit of discomfort in her bladder, bladder spasms that she has to go the bathroom often. I will place her on Bactrim and Pyridium to go home with. Patient Condition at Discharge: Stable Plan - Discharge Summary Discharge Rx Participant: Yes New Discharge Prescriptions: New Sulfamethox-Tmp 800-160Mg [Bactrim DS 800-160 mg] 1 tab PO Q12HR 3 Days #6 tab Phenazopyridine [Pyridium] 200 mg PO TID #9 tablet No Action Sertraline HCl [Zoloft] 100 mg PO DAILY Levothyroxine Sodium [Synthroid] 25 mcg PO DAILY Ergocalciferol [Vitamin D2] 50,000 unit PO WE Albuterol Sulfate [Ventolin HFA] 1 - 2 puff INHALATION RT-Q6H PRN PRN Reason: Shortness Of Breath Hydrocodone/Acetaminophen [[place] 5-325] 1 - 2 tab PO Q6HR PRN PRN Reason: Pain Amoxicillin 500 mg PO QID Discharge Medication List Sertraline HCl [Zoloft] 100 mg PO DAILY 12/31/15 [History] Levothyroxine Sodium [Synthroid] 25 mcg PO DAILY 04/29/17 [History] Ergocalciferol [Vitamin D2] 50,000 unit PO WE 09/16/18 [History] Albuterol Sulfate [Ventolin HFA] 1 - 2 puff INHALATION RT-Q6H PRN 05/02/20 [History] Amoxicillin 500 mg PO QID 06/03/20 [History] Hydrocodone/Acetaminophen [[place] 5-325] 1 - 2 tab PO Q6HR PRN 06/03/20 [History] Phenazopyridine [Pyridium] 200 mg PO TID #9 tablet 06/06/20 [Rx] Sulfamethox-Tmp 800-160Mg [Bactrim DS 800-160 mg] 1 tab PO Q12HR 3 Days #6 tab 06/06/20 [Rx] Follow up Appointment(s)/Referral(s): Celeste Cheng III, MD [Primary Care Provider] - 1-2 days Damaris Hoffman DO [Doctor of Osteopathic Medicine] - 1 Week Discharge Disposition: HOME SELF-CARE
== END 2020-06-06 12:28 | disposition home or self-care (01) ==
LOC: EC 09:44 → 6PED 14:36 → OBSVTOIN 06-05 12:08 → INTOOBSV 06-05 12:08 → UNDODISIN 06-06 12:28
PROVIDERS: ADMIT Obstetrics & Gynecology; ATTEND Obstetrics & Gynecology
DX: N71.9 Inflammatory disease of uterus, unspecified (principal); N39.0 Urinary tract infection, site not specified; R11.2 Nausea with vomiting, unspecified; R19.7 Diarrhea, unspecified; N32.89 Other specified disorders of bladder; K59.00 Constipation, unspecified; F41.9 Anxiety disorder, unspecified; F32.9 Major depressive disorder, single episode, unspecified; F17.200 Nicotine dependence, unspecified, uncomplicated; M62.838 Other muscle spasm; Z98.1 Arthrodesis status; Z88.1 Allergy status to other antibiotic agents; Z98.890 Other specified postprocedural states; Z79.899 Other long term (current) drug therapy; Z87.11 Personal history of peptic ulcer disease; Z20.828 Contact with and (suspected) exposure to other viral communicable diseases; Z82.69 Family history of other diseases of the musculoskeletal system and connective tissue; Z82.49 Family history of ischemic heart disease and other diseases of the circulatory system
CPT/HCPCS: 96361 ×2; 96366 ×4; 96367; 96375 ×2; 96376 ×5; 96365; 99285; 36415; 94640; 80053; 80048; 82565; 83605; 83690; 85025 ×2; 81001; 81025; 87324; 80170; 93975; 76830; 74177; G0378 ×4; U0003; S4990 ×2; J2543 ×4; J2270 ×4; J2405 ×2; J1580 ×3; J1885 ×4; Q9967

== ENCOUNTER 2020-11-28 11:49 | Day surgery (SDC) | payer OTHER ==
[2020-11-26 18:38] VITALS: BMI 40.4
[~2020-11-28 11:49] MED LIST changes: +ACETAMINOPHEN TAB 500 MG TAB PO PRN; +HEPARIN SODIUM,PORCINE/PF 5,000 UNIT/0.5 ML SYRINGE SQ PRN; -LIDOCAINE 1% (10MG/ML) FOR IV START INTRADERMA PRN; +MIDAZOLAM 2 MG/2 ML VIAL IV PRN; -Pre Op ABX Message 1 EACH MISC MISCELLANE ONE
--- NOTE | 2020-11-28 12:34 | P.HPADDEND ---
H&P Addendum H&P Addendum Date: 11/28/20 Patient presents today for excision abdominal wall mass left lower quadrant suspected to represent an endometrioma. Patient also now complaining of a dimpled area right upper quadrant along her pyloric stenosis scar that is painful and she believes there are some skin changes there. Requesting that be biopsied. On exam patient has a one by one cm skin lesion with some dimpling right upper quadrant. We will excise at this time. Risks of bleeding infection and pain reviewed. She understands and wishes to proceed.
[2020-11-28] MEDS ORDERED: LIDOCAINE 1% (10MG/ML) FOR IV START INTRADERMA ONE (12:36)
[2020-11-28] MEDS ORDERED: MIDAZOLAM 2 MG/2 ML VIAL ONE (12:39)
[2020-11-28] MEDS ORDERED: LIDOCAINE 1% INJ 10MG/ML (20 ML MDV) ONE (12:39)
[2020-11-28] MEDS ORDERED: HYDROmorphone (PF) 1 MG/ML ONE (12:39)
[2020-11-28] MEDS ORDERED: KETOROLAC 15 MG/ML 1 ML VIAL ONE (12:39)
[2020-11-28] MEDS ORDERED: GLYCOPYRROLATE 0.2 MG/ML 2 ML VIAL ONE (12:39)
[2020-11-28] MEDS ORDERED: ROCURONIUM 10 MG/ML (5 ML VIAL) IV ONE (12:39)
[2020-11-28] MEDS ORDERED: SUCCINYLCHOLINE CHLORIDE 100 MG/5 ML SYR IV ONE (12:39)
[2020-11-28] MEDS ORDERED: PROPOFOL 10 MG/ML 20 ML VIAL IV ONE (12:39)
[2020-11-28] MEDS ORDERED: fentaNYL (PF) 50 MCG/ML 2 ML AMP ONE (12:39)
[2020-11-28] MEDS ORDERED: NEOSTIGMINE 1 MG/ML 10 ML VIAL ONE (12:39)
[2020-11-28 12:55] LABS: Potassium 4.1 mmol/L (3.5-5.1)
[2020-11-28] MEDS ORDERED: LIDOCAINE 1% INJ 10MG/ML (20 ML MDV) SQ ONE ×2 (13:21)
[2020-11-28 13:52] VITALS: TEMP 96.9
[2020-11-28] MEDS: HYDROmorphone 0.5 MG/0.5 ML SYRINGE IVP PRN ×2 (13:58→14:07)
[2020-11-28] MEDS ORDERED: HYDROcodone/APAP 5-325MG 1 EACH TAB PO PRN (14:04)
[2020-11-28] MEDS ORDERED: NALOXONE 0.4 MG/ML 1 ML VIAL IV PRN (14:04)
--- NOTE | 2020-11-28 14:10 | P.OP ---
Date of Procedure: 11/28/20 Procedure(s) Performed: PREOPERATIVE DIAGNOSIS: Left lower quadrant abdominal wall mass, right upper quadrant abdominal wall skin lesion POSTOPERATIVE DIAGNOSIS: Same PROCEDURE: Excision abdominal wall mass and abdominal wall skin lesion with intermediate closure SURGEON: Moreno EBL: Marky Scott ANESTHESIA: Gen. COMPLICATIONS: None OPERATIVE PROCEDURE: Patient placed in the operating table in the supine position. The patient was placed under general anesthesia. The abdomen was prepped and draped sterilely. The left lower quadrant abdominal wall mass was first addressed. The lateral aspect of the previous Pfannenstiel incision was re-incised. The subcutaneous tissues were divided using electrocautery. The mass was identified in the subcutaneous tissues adherent to the fascia and fully excised using electrocautery. This measured 3 x 4 cm. A defect in the fascia was noted and repaired using a short running #1 Vicryl suture. Subcutaneous tissues were closed using 3-0 Vicryl sutures. Skin closed using a running 4-0 Monocryl suture. Right upper quadrant skin lesion was then addressed. An ellip tical incision was made around the scar site where the indented skin lesion was seen. Size of skin lesion 1.5 x 1.5 cm. This was fully excised using both sharp dissection and cautery. The cutaneous tissues closed here using 3-0 Vicryl sutures and skin using 4-0 Monocryl sutures. Total length of the intermediate closure 12 cm. Skin glue and sterile dressings applied. DISPOSITION: Stable to recovery room
[2020-11-28] MEDS ORDERED: LACTATED RINGERS 1,000 ML IV ONE ×2 (14:36)
[2020-11-28 15:25] VITALS: BP 146/90; PULSE 79; RESP 16
== END 2020-11-28 15:59 ==
LOC: OR 11:49
PROVIDERS: ATTEND Surgery
DX: N80.8 Other endometriosis (principal); L90.5 Scar conditions and fibrosis of skin; E07.9 Disorder of thyroid, unspecified; Z98.891 History of uterine scar from previous surgery; Z98.890 Other specified postprocedural states; Z80.3 Family history of malignant neoplasm of breast; Z80.41 Family history of malignant neoplasm of ovary; E78.5 Hyperlipidemia, unspecified; J45.909 Unspecified asthma, uncomplicated; F17.200 Nicotine dependence, unspecified, uncomplicated; K21.9 Gastro-esophageal reflux disease without esophagitis; Z79.891 Long term (current) use of opiate analgesic; Z79.899 Other long term (current) drug therapy; Z79.890 Hormone replacement therapy; Z88.1 Allergy status to other antibiotic agents
CPT/HCPCS: 88305; 80051; 22903; 11402; J2250; J1100; J2710; J0690; J2405; J2001; J3010; J1170 ×2; J1885; J0330; J2704; J1644; 88307

== ENCOUNTER 2021-04-07 07:49 | Day surgery (SDC) | payer OTHER ==
[2021-04-06 09:02] VITALS: BMI 39.1
[~2021-04-07 07:49] MED LIST changes: -ACETAMINOPHEN TAB 500 MG TAB PO PRN; -DEXAMETHASONE SOD PHOSPHATE 4 MG/ML 1 ML VIAL IV ONE; -HEPARIN SODIUM,PORCINE/PF 5,000 UNIT/0.5 ML SYRINGE SQ PRN; +LIDOCAINE 1% (10MG/ML) FOR IV START INTRADERMA PRN; -MIDAZOLAM 2 MG/2 ML VIAL IV PRN; -ONDANSETRON 4 MG/2 ML VIAL IVP ONE; -SCOPOLAMINE 1.5MG/72HR PATCH TRANSDERM ONE
[2021-04-07 08:23] VITALS: TEMP 96.9
[2021-04-07] MEDS ORDERED: LIDOCAINE 1% INJ 10MG/ML (20 ML MDV) ONE (08:40)
[2021-04-07] MEDS ORDERED: PROPOFOL 10 MG/ML 20 ML VIAL IV ONE (08:40)
--- NOTE | 2021-04-07 08:45 | P.GSHP ---
History of Present Illness H&P Date: 04/07/21 Chief Complaint: Reflux Patient here today for upper endoscopy. History of nighttime and daytime reflux. No heartburn. No relief with antiacids. No dysphagia. Some aspiration of liquids when she drinks at times. Past Medical History Past Medical History: Chest Pain / Angina, GERD/Reflux, Musculoskeletal Disorder Additional Past Medical History / Comment(s): DDD, recurrent back pain, STOMACH ULCERS, Sinus Tachycardia., states A-fib years ago., headaches., Dizziness at times, N/T rt buttocks radiating rt leg, no feeling rt achilles tendon r/t nerve damage", hx low iron., states coughing when drinking-fluids go down the wrong way, wakes up at night with acid reflux. History of Any Multi-Drug Resistant Organisms: None Reported Past Surgical History: Back Surgery, Section, Uterine Ablation Additional Past Surgical History / Comment(s): 12/31/15 Revision laminectomy discectomy abdominal mass(endometrium) removal, posterior lumbar decompression fusion, transforiminal lumbar interbody fusion L5-S1 with cell saver and NIM cord monitoring. Other SX: pyloric surgery , low BACK SURGERIES x2, C- Sections x2. Past Anesthesia/Blood Transfusion Reactions: No Reported Reaction Additional Past Anesthesia/Blood Transfusion Reaction / Comment(s): Pt has never recieved blood. states",becomes emotional/tearful post anesthesia" Past Psychological History: Anxiety, Depression Additional Psychological History / Comment(s): . Smoking Status: Current every day smoker Past Alcohol Use History: None Reported Additional Past Alcohol Use History / Comment(s): Pt started smoking at age 12 yrs. Smokes 1 ppd. Past Drug Use History: Marijuana Additional Drug Use History / Comment(s): marijuana daily use. - Past Family History Father Family Medical History: Coronary Artery Disease (CAD), Myocardial Infarction ([place]) Additional Family Medical History / Comment(s): Father has stents. Mother Family Medical History: No Reported History Additional Family Medical History / Comment(s): Mother has a bad back. Medications and Allergies Home Medications Medication Instructions Recorded Confirmed Type Sertraline HCl [Zoloft] 100 mg PO QAM 12/31/15 04/07/21 History Levothyroxine Sodium [Synthroid] 25 mcg PO QAM 04/29/17 04/07/21 History Ergocalciferol [Vitamin D2] 50,000 unit PO SA 09/16/18 04/07/21 History Albuterol Sulfate [Ventolin HFA] 1 - 2 puff INHALATION RT-Q6H PRN 05/02/20 04/07/21 History Hydrocodone/Acetaminophen [[place] 1 tab PO Q8H PRN 06/03/20 04/07/21 History 5-325] Omeprazole [PriLOSEC] 20 mg PO AC-BID 11/26/20 04/07/21 History Allergies Allergy/AdvReac Type Severity Reaction Status Date / Time clarithromycin [From Biaxin] AdvReac Severe Diarrhea Verified 04/06/21 08:40 Surgical - Exam Vital Signs Temp Pulse Resp BP Pulse Ox 96.9 F L 86 16 122/79 96 04/07/21 08:21 04/07/21 08:21 04/07/21 08:21 04/07/21 08:21 04/07/21 08:21 Physical exam: General: Well-developed, well-nourished HEENT: Normocephalic, sclerae nonicteric Abdomen: Nontender, nondistended Extremities: No edema Neuro: Alert and oriented Assessment and Plan (1) GERD (gastroesophageal reflux disease) Narrative/Plan: Will proceed with upper endoscopy Current Visit: Yes Status: Acute Code(s): K21.9 - GASTRO-ESOPHAGEAL REFLUX DISEASE WITHOUT ESOPHAGITIS SNOMED Code(s): 346439580
--- NOTE | 2021-04-07 08:54 | P.PCN ---
Date of Procedure: 04/07/21 Procedure(s) Performed: Preoperative Dx: GERD Postoperative Dx: Mild gastritis with some retained food Procedure: EGD with Bx Anesthesia: Sedation Endoscopist: Dr. Mayer Specimens: Antrum Endoscopic Procedure: The patient was on the endoscopy table in the left decubitus position. The Olympus gastroscope was inserted into the oropharynx and passed under direct visualization to the region of the third portion of the duodenum. From that point the scope was slowly withdrawn inspecting all surfaces carefully. There were no neoplastic inflammatory or polypoid lesions throughout the duodenum. The pylorus was widely patent. The stomach was carefully inspected. There was some retained food within the stomach consistent with mild gastroparesis. There was mild inflammatory changes in the antrum consistent with mild gastritis. A biopsy of the antrum took place to rule out H. pylori. Retroflexion revealed a normal hiatus. The esophagus was then carefully examined. There were no neoplastic inflammatory or polypoid lesions throughout the visualized esophagus. The patient was then taken to the recovery room in stable condition per anesthesia guidelines. Recommendations: Await biopsy results. Continue antiacid therapy. Will recommend patient takes multiple small meals per day and evening or drinking later in the day. If symptoms worsen gastric emptying study could be performed as well.
[2021-04-07 09:51] VITALS: BP 104/65; PULSE 84; RESP 16
== END 2021-04-07 09:36 | disposition home or self-care (01) ==
LOC: ORWHC2ENDO 07:49
PROVIDERS: ATTEND Surgery
DX: K29.50 Unspecified chronic gastritis without bleeding (principal); K21.00 Gastro-esophageal reflux disease with esophagitis, without bleeding; F41.9 Anxiety disorder, unspecified; I48.91 Unspecified atrial fibrillation; Z82.49 Family history of ischemic heart disease and other diseases of the circulatory system; Z87.11 Personal history of peptic ulcer disease; F17.210 Nicotine dependence, cigarettes, uncomplicated; E07.9 Disorder of thyroid, unspecified
CPT/HCPCS: 43239; 81025; 88305; J2001; J2704

== ENCOUNTER 2021-07-03 08:22 | Emergency (ER) | payer OTHER ==
[2021-07-03 08:26] VITALS: TEMP 98.3
[2021-07-03] MEDS ORDERED: ONDANSETRON 4 MG/2 ML VIAL IVP STA ×2 (08:54→11:16)
[2021-07-03] MEDS ORDERED: HYDROmorphone 0.5 MG/0.5 ML SYRINGE IVP STA (08:54)
[2021-07-03] MEDS ORDERED: SODIUM CHLORIDE 0.9% 1,000 ML IV STA (08:54)
--- NOTE | 2021-07-03 08:57 | ED ---
General Adult HPI - General Chief complaint: Abdominal Pain Stated complaint: abd pain & vomiting Time Seen by Provider: 07/03/21 08:26 Source: patient Mode of arrival: ambulatory Limitations: no limitations - History of Present Illness Initial comments: 35-year-old female with a complicated past medical history presents to the emergency room for chief complaint of abdominal pain. Patient states she has had left-sided abdominal discomfort since yesterday. However this morning around 5 AM she started to get diffuse abdominal pain. States it hurts to sit up. Patient states that she did vomit once. Patient denies fevers at home. Patient did have a mass removed last year.Patient has no other complaints at this time including shortness of breath, chest pain, headache, or visual changes. - Related Data Home Medications Medication Instructions Recorded Confirmed Sertraline HCl [Zoloft] 100 mg PO DAILY 12/31/15 07/03/21 Levothyroxine Sodium [Synthroid] 25 mcg PO DAILY 04/29/17 07/03/21 Ergocalciferol [Vitamin D2] 50,000 unit PO TU 09/16/18 07/03/21 Hydrocodone/Acetaminophen [[place] 1 tab PO Q8H PRN 06/03/20 07/03/21 5-325] Albuterol Sulfate [Proair Hfa] 2 puff INHALATION RT-Q6H PRN 07/03/21 07/03/21 methocarbamoL [Robaxin] 500 mg PO HS 07/03/21 07/03/21 Allergies Allergy/AdvReac Type Severity Reaction Status Date / Time clarithromycin [From Biaxin] AdvReac Severe Diarrhea Verified 07/03/21 11:24 Review of Systems ROS Statement: Those systems with pertinent positive or pertinent negative responses have been documented in the HPI. ROS Other: All systems not noted in ROS Statement are negative. Past Medical History Past Medical History: Asthma, Chest Pain / Angina, Hearing Disorder / Deafness, Hyperlipidemia, Musculoskeletal Disorder, Skin Disorder, Thyroid Disorder Additional Past Medical History / Comment(s): DDD, recurrent back pain, STOMACH ULCERS, Sinus Tachycardia., states A-fib years ago., headaches., Dizziness at times, N/T rt buttocks radiating rt leg, no feeling rt achilles tendon r/t nerve damage", hx low iron., states coughing when drinking-fluids go down the wrong way, wakes up at night with acid reflux. History of Any Multi-Drug Resistant Organisms: None Reported Past Surgical History: Back Surgery, Section, Uterine Ablation Additional Past Surgical History / Comment(s): 12/31/15 Revision laminectomy di scectomy posterior lumbar decompression fusion, transforiminal lumbar interbody fusion L5-S1 with cell saver, NIM cord monitoring. Pyloric surgery , low BACK SURGERIES x2, C-Sections x2. Past Anesthesia/Blood Transfusion Reactions: No Reported Reaction, Family Hist ory of Problems w/ Anesthesia Additional Past Anesthesia/Blood Transfusion Reaction / Comment(s): Pt has never recieved blood. Hx hallucinations in grandmother Past Psychological History: Anxiety, Depression Smoking Status: Current every day smoker Past Alcohol Use History: None Reported Past Drug Use History: Marijuana - Past Family History Father Family Medical History: Coronary Artery Disease (CAD), Myocardial Infarction ([place]) Additional Family Medical History / Comment(s): Father has stents. Mother Family Medical History: No Reported History Additional Family Medical History / Comment(s): Mother has a bad back. General Exam Limitations: no limitations General appearance: alert, in no apparent distress Head exam: Present: atraumatic Eye exam: Present: normal appearance, PERRL, EOMI. Absent: scleral icterus, conjunctival injection ENT exam: Present: normal exam, mucous membranes moist Neck exam: Present: normal inspection, full ROM. Absent: tenderness Respiratory exam: Present: normal lung sounds bilaterally. Absent: respiratory distress, wheezes Cardiovascular Exam: Present: regular rate, normal rhythm, normal heart sounds GI/Abdominal exam: Present: soft, tenderness (Diffuse abdominal tenderness.), normal bowel sounds. Absent: distended Course Vital Signs 07/03/21 07/03/21 07/03/21 08:23 09:15 10:37 Temperature 98.3 F Pulse Rate 87 87 Respiratory 22 18 Rate Blood Pressure 139/90 120/70 O2 Sat by Pulse 96 96 Oximetry 07/03/21 11:18 Temperature Pulse Rate 96 Respiratory 18 Rate Blood Pressure 118/66 O2 Sat by Pulse 96 Oximetry Medical Decision Making - Medical Decision Making Vitals are stable. Patient is well-appearing. She does have mild diffuse abdominal tenderness. CBC does show a white count of 15.9. Pt often has leukocytosis in the past and did vomit today which could lead to increased white blood cell count. CMP is unremarkable. Urinalysis does show 182 red blood cells. Patient is currently menstruating. CT was obtained. This did show a tiny midline abdominal wall hernia. There are also cysts of the ovaries. Mild thickening of the bladder however no evidence of urinary tract infection on urinalysis as blood is likely from menses. However, we will add a urine culture. Patient first to wait for urine culture rather than treat with antibiotics. A limited abdominal ultrasound was obtained per CT recommendation which showed anterior abdominal wall hypoechoic focus, incarcerated abdominal fat, fat necrosis. Ultrasound was also obtained which showed no evidence of torsion but there is a complex variances. Patient does have an [employer] that she will follow up with, she is made aware. In regards to the fat-containing hernia I did discuss this case with Dr. Plata. At this time he is recommending outpatient follow-up with one of his partners for possible robotic or lapa roscopic surgery. Does not feel this is emergently surgical. Patient updated and care plan. Urgently requesting discharge as her has to go to work. She will return here for any worsening symptoms. - Lab Data Result diagrams: 07/03/21 08:59 07/03/21 08:59 Lab Results 07/03/21 07/03/21 07/03/21 Range/Units 08:59 08:59 08:59 WBC 15.9 H (3.8-10.6) k/uL RBC 4.97 (3.80-5.40) m/uL Hgb 15.6 (11.4-16.0) gm/dL Hct 45.7 (34.0-46.0) % MCV 91.8 (80.0-100.0) fL MCH 31.4 (25.0-35.0) pg MCHC 34.3 (31.0-37.0) g/dL RDW 14.1 (11.5-15.5) % Plt Count 278 (150-450) k/uL MPV 7.8 Neutrophils % 87 % Lymphocytes % 9 % Monocytes % 3 % Eosinophils % 1 % Basophils % 0 % Neutrophils # 13.7 H (1.3-7.7) k/uL Lymphocytes # 1.4 (1.0-4.8) k/uL Monocytes # 0.4 (0-1.0) k/uL Eosinophils # 0.2 (0-0.7) k/uL Basophils # 0.0 (0-0.2) k/uL Sodium (137-145) mmol/L Potassium (3.5-5.1) mmol/L Chloride (98-107) mmol/L Carbon Dioxide (22-30) mmol/L Anion Gap mmol/L BUN (7-17) mg/dL Creatinine (0.52-1.04) mg/dL Est GFR (CKD-EPI)AfAm (>60 ml/min/1.73 sqM) Est GFR (CKD-EPI)NonAf (>60 ml/min/1.73 sqM) Glucose (74-99) mg/dL Plasma Lactic Acid Luigi (0.7-2.0) mmol/L Calcium (8.4-10.2) mg/dL Total Bilirubin (0.2-1.3) mg/dL AST (14-36) U/L ALT (4-34) U/L Alkaline Phosphatase (38-126) U/L Total Protein (6.3-8.2) g/dL Albumin (3.5-5.0) g/dL Amylase (30-110) U/L Lipase (23-300) U/L Urine Color Light Red Urine Appearance Clear (Clear) Urine pH 6.0 (5.0-8.0) Ur Specific [place] 1.034 (1.001-1.035) Urine Protein 1+ H (Negative) Urine Glucose (UA) Negative (Negative) Urine Ketones Negative (Negative) Urine Blood Large H (Negative) Urine Nitrite Negative (Negative) Urine Bilirubin Negative (Negative) Urine Urobilinogen 2.0 (<2.0) mg/dL Ur Leukocyte Esterase Small H (Negative) Urine RBC >182 H (0-5) /hpf Urine WBC 6 H (0-5) /hpf Ur Squamous Epith Cells 2 (0-4) /hpf Urine Mucus Many H (None) /hpf Urine HCG, Qual Not Detected (Not Detectd) 07/03/21 07/03/21 Range/Units 08:59 08:59 WBC (3.8-10.6) k/uL RBC (3.80-5.40) m/uL Hgb (11.4-16.0) gm/dL Hct (34.0-46.0) % MCV (80.0-100.0) fL MCH (25.0-35.0) pg MCHC (31.0-37.0) g/dL RDW (11.5-15.5) % Plt Count (150-450) k/uL MPV Neutrophils % % Lymphocytes % % Monocytes % % Eosinophils % % Basophils % % Neutrophils # (1.3-7.7) k/uL Lymphocytes # (1.0-4.8) k/uL Monocytes # (0-1.0) k/uL Eosinophils # (0-0.7) k/uL Basophils # (0-0.2) k/uL Sodium 134 L (137-145) mmol/L Potassium 4.0 (3.5-5.1) mmol/L Chloride 104 (98-107) mmol/L Carbon Dioxide 22 (22-30) mmol/L Anion Gap 8 mmol/L BUN 13 (7-17) mg/dL Creatinine 0.62 (0.52-1.04) mg/dL Est GFR (CKD-EPI)AfAm >90 (>60 ml/min/1.73 sqM) Est GFR (CKD-EPI)NonAf >90 (>60 ml/min/1.73 sqM) Glucose 153 H (74-99) mg/dL Plasma Lactic Acid Luigi 0.8 (0.7-2.0) mmol/L Calcium 9.1 (8.4-10.2) mg/dL Total Bilirubin 1.1 (0.2-1.3) mg/dL AST 19 (14-36) U/L ALT 17 (4-34) U/L Alkaline Phosphatase 67 (38-126) U/L Total Protein 7.5 (6.3-8.2) g/dL Albumin 4.3 (3.5-5.0) g/dL Amylase 43 (30-110) U/L Lipase 57 (23-300) U/L Urine Color Urine Appearance (Clear) Urine pH (5.0-8.0) Ur Specific [place] (1.001-1.035) Urine Protein (Negative) Urine Glucose (UA) (Negative) Urine Ketones (Negative) Urine Blood (Negative) Urine Nitrite (Negative) Urine Bilirubin (Negative) Urine Urobilinogen (<2.0) mg/dL Ur Leukocyte Esterase (Negative) Urine RBC (0-5) /hpf Urine WBC (0-5) /hpf Ur Squamous Epith Cells (0-4) /hpf Urine Mucus (None) /hpf Urine HCG, Qual (Not Detectd) Disposition Clinical Impression: Abdominal pain, Fatty hernia of linea alba, Ovarian cyst Disposition: HOME SELF-CARE Condition: Good Instructions (If sedation given, give patient instructions): Ventral Hernia (ED) Additional Instructions: Please follow up with general surgery for abdominal pain and hernia. Follow-up with [employer]ER in regards to ovarian cysts. You will also need a urinalysis repeat ed to rule out blood in the urine. Return to the emergency room for any worsening symptoms. Is patient prescribed a controlled substance at d/c from ED?: No Referrals: Celeste Cheng III, MD [Primary Care Provider] - 1-2 days Cuong Anglin DO [Doctor of Osteopathic Medicine] - 1-2 days Time of Disposition: 13:55
[2021-07-03 09:16] LABS: Basophils % (A) 0 %; Eosinophils # (A) 0.2 k/uL (0-0.7); Eosinophils % (A) 1 %; HCT 45.7 % (34.0-46.0); HGB 15.6 gm/dL (11.4-16.0); Lymphocytes # (A) 1.4 k/uL (1.0-4.8); Lymphocytes % (A) 9 %; MCH 31.4 pg (25.0-35.0); MCHC 34.3 g/dL (31.0-37.0); MCV 91.8 fL (80.0-100.0); Mean Platelet Volume 7.8; Monocytes # (A) 0.4 k/uL (0-1.0); Monocytes % (A) 3 %; Neutrophils # (A) 13.7 k/uL (1.3-7.7); Neutrophils % (A) 87 %; Platelet Count 278 k/uL (150-450); RBC 4.97 m/uL (3.80-5.40); RDW 14.1 % (11.5-15.5); WBC 15.9 k/uL (3.8-10.6)
[2021-07-03 09:21] LABS: Appearance,Urine Clear (Clear); Bilirubin,Urine Negative (Negative); Blood,Urine Large (Negative); Color,Urine Light Red; Glucose,Urine (UA) Negative (Negative); Ketones,Urine Negative (Negative); Leukocyte Esterase,Urine Small (Negative); Mucus,Urine Many /hpf; Nitrite,Urine Negative (Negative); Protein,Urine 1+ (Negative); RBC,Urine >182 /hpf (0-5); Specific Gravity,Urine 1.034 (1.001-1.035); Squamous Epithelial Cell,Urine 2 /hpf (0-4); WBC,Urine 6 /hpf (0-5)
[2021-07-03 09:30] LABS: ALT 17 U/L (4-34); AST 19 U/L (14-36); African American GFR (CKD) >90 (>60 ml/min/1.73 sqM); Albumin 4.3 g/dL (3.5-5.0); Alkaline Phosphatase 67 U/L (38-126); Amylase 43 U/L (30-110); Anion Gap 8 mmol/L; Blood Urea Nitrogen 13 mg/dL (7-17); Calcium 9.1 mg/dL (8.4-10.2); Carbon Dioxide 22 mmol/L (22-30); Chloride 104 mmol/L (98-107); Glucose 153 mg/dL (74-99); Lipase 57 U/L (23-300); Non-African American GFR(CKD) >90 (>60 ml/min/1.73 sqM); Sodium 134 mmol/L (137-145); Total Bilirubin 1.1 mg/dL (0.2-1.3); Total Protein 7.5 g/dL (6.3-8.2)
--- NOTE | 2021-07-03 10:19 | CT ---
EXAMINATION TYPE: CT abdomen pelvis w con DATE OF EXAM: 07/03/2021 COMPARISON: 06/03/2020 HISTORY: 35-year-old female Generalized abdominal pain and vomiting. TECHNIQUE: Contiguous axial scanning of the abdomen and pelvis following administration of 100 ml Iso brittany 300 IV contrast. Delayed images through the kidneys and coronal/sagittal reconstructions perform ed. CT DLP: 2160.3 mGycm Automated exposure control for dose reduction was used. FINDINGS: Heart normal size without pericardial effusion. Lung bases clear without pleural effusion. Liver enlarged at 20.4 cm. No focal lesion there is slight heterogeneous enhancement could represent fatty infiltration are underlying hepatocellular disease. Portal venous system is patent. No biliary ductal dilatation. Gallbladder, adrenal glands, kidneys, pancreas within normal limits. Spleen mildly enlarged at 14.0 cm measured on coronal series. Nonenlarged and mildly enlarged left periaortic lymph nodes measuring up to 1.4 cm versus 1.6 cm back on 06/03/2020 suggests a chronic reactive/post inflammatory etiology. No mesenteric lymphadenopathy s een. There is a focal 1.2 cm area of nodularity along the supraumbilical midline, axial image 49 and sagit fuentes image 77. Possible tight midline hernia with accumulating focal fluid. Normal appendix. Mild to moderate stool in the right side of the abdomen. No pericolonic inflammatory change. Bladder partially distended but with mild perivesicular fat stranding. Uterus is anteverted but slightly retroflexed. Cystic change in the bilateral ovaries measuring up to 3.1 cm on the right and multiple in the left approximately 3 dominant cystic areas measuring up to 2 .8 cm. No abnormal fluid collection in the pelvis. No pelvic lymphadenopathy seen. Bones: There is post L5-S1 posterior and interbody fusion. IMPRESSION: 1. A 1.2 CM AREA OF NODULARITY ALONG THE SUPRAUMBILICAL MIDLINE ANTERIOR ABDOMINAL WALL. POSSIBLE TIN Y BUT TIGHT MIDLINE ABDOMINAL WALL HERNIA WITH ACCUMULATING FOCAL FLUID HERE. CORRELATE FOR POINT TEN DERNESS AND FOR ANY PALPABLE ABNORMALITY. CONSIDER TARGETED ULTRASOUND. 2. SUSPECT PROMINENT FOLLICULAR CHANGE IN THE BILATERAL OVARIES. MULTIPLE CYSTIC AREAS ARE PRESENT ME ASURING UP TO 2.1 CM ON THE RIGHT AND 2.8 CM ON THE LEFT. IF PELVIC PAIN, PELVIC ULTRASOUND CAN BE CO NSIDERED. 3. SOME MILD WALL THICKENING OF THE BLADDER. CORRELATE TO EXCLUDE CYSTITIS. 4. HEPATOSPLENOMEGALY (LIVER 20.4 CM AND SPLEEN 14.0 CM). THERE MAY BE SOME UNDERLYING FATTY INFILTRA TION OF THE LIVER OR NONSPECIFIC HEPATOCELLULAR DISEASE.
[2021-07-03 10:38] VITALS: RESP 18
[2021-07-03] MEDS ORDERED: HYDROmorphone 1 MG/ML 1 ML SYRINGE IVP STA (11:06)
[2021-07-03 11:18] VITALS: BP 118/66; PULSE 96
--- NOTE | 2021-07-03 12:30 | US ---
EXAMINATION TYPE: US abdomen limited for supraumbilical hernia assessment per CT recommendation. DATE OF EXAM: 07/03/2021 COMPARISON: CT today and CT 06/03/2020 CLINICAL HISTORY: poss supraumbilical hernia. EC patient with abdominal pain and pelvic pain today; D [facility] robotic surgery last year for endometriosis with scar at supraumbilical area. US Findings at supraumbilical area and is area of pain: Oval hypoechoic area is seen = 0.9 x 1.2 x 0 .9cm posterior to surgical scar within 2cm from skin line; no dynamic changes are seen in this area w ith or without valsalva maneuver to suggest hernia. IMPRESSION: Limited abdomen ultrasound and the site of patient's symptomatology along the anterior ab dominal wall shows a hypoechoic focus, incarcerated abdominal fat, fat necrosis are within the differ ential as well as focal scar.
--- NOTE | 2021-07-03 12:39 | US ---
EXAMINATION TYPE: US pelvic complete DATE OF EXAM: 07/03/2021 COMPARISON: CT today CLINICAL HISTORY: pain, doppler. EC patient with abdominal and pelvic pain today; assess ovaries for vascularity due to ovarian cysts seen on CT; endometrial ablation, . TECHNIQUE: Transvaginal (TV). Transvaginal sonographic images were medically necessary to better as sess the following anatomy: ovaries and as EC patient not prepped for TA US. Date of LMP: 07/02/2021 EXAM MEASUREMENTS: Uterus: 11.1 x 4.1 x 5.1 cm Endometrial Stripe: 0.8 cm Right Ovary: 4.6 x 3.6 x 3.6 cm Left Ovary: 6.6 x 5.9 x 3.5 cm 1. Uterus: anteflexed; multiple Nabothian Cysts are seen in MARLINE and cervix with largest = 1.0 x 0.8 x 0.6cm 2. Endometrium: thickness is wnl for Day 2LMP 3. Right Ovary: complex cyst seen = 3.4 x 2.0x 2.0cm 4. Left Ovary: enlarged; multifollicular with largest as involuting cyst with peripheral color flow = 6.3 x 5.9 x 3.5cm Spectral, color and waveform doppler imaging shows good arterial and venous flow within the ovaries ; there is no evidence for ovarian torsion. 5. Bilateral Adnexa: wnl 6. Posterior cul-de-sac: wnl IMPRESSION: 1. Bilateral ovarian cysts. This is complex on the right. Follow-up is recommended.
[2021-07-03] MEDS ORDERED: ACET/COD 300 MG/30 MG STARTER PACK 6 TAB BTL PO STA (13:56)
== END 2021-07-03 14:17 | disposition home or self-care (01) ==
LOC: EC 08:22
DX: R10.9 Unspecified abdominal pain (principal); N83.209 Unspecified ovarian cyst, unspecified side; K65.4 Sclerosing mesenteritis; J45.909 Unspecified asthma, uncomplicated; E78.5 Hyperlipidemia, unspecified; I48.91 Unspecified atrial fibrillation; F41.9 Anxiety disorder, unspecified; F32.A Depression, unspecified; F17.200 Nicotine dependence, unspecified, uncomplicated; F12.90 Cannabis use, unspecified, uncomplicated; Z79.51 Long term (current) use of inhaled steroids
CPT/HCPCS: 36415; 80053; 82150; 83605; 83690; 85025; 81001; 81025; 87086; 93975; 76705; 76830; 74177; 99284; 96374; 96375; 96376 ×2; 96361; J2405; J1170 ×2; Q9967

== ENCOUNTER → 2021-09-08 | Outpatient (CLI) | payer OTHER ==
[2021-09-08 19:05] LABS: Anion Gap 14.6 mmol/L (10.00-18.00); Blood Urea Nitrogen 10.8 mg/dL (9.0-27.0); Calcium 9.3 mg/dL (8.7-10.3); Carbon Dioxide 22.4 mmol/L (20.0-27.5); Non-African American GFR(CKD) 115.6 (60.0-200.0); Potassium 4.1 mmol/L (3.5-5.5)
[2021-09-08 19:07] LABS: Basophils # (A) 0.03 X 10*3/uL (0.00-0.10); Basophils % (A) 0.3 %; Eosinophils # (A) 0.14 X 10*3/uL (0.04-0.35); Eosinophils % (A) 1.6 %; HCT 46.5 % (37.2-46.3); HGB 15.3 g/dL (12.0-15.0); Immature Grans, Automated 0.4 %; Lymphocytes # (A) 2.14 X 10*3/uL (0.90-5.00); Lymphocytes % (A) 23.9 %; MCHC 32.9 g/dL (32.0-37.0); MCV 91.2 fL (80.0-97.0); Mean Platelet Volume 10.6 fL (9.5-12.2); Monocytes # (A) 0.42 X 10*3/uL (0.20-1.00); Monocytes % (A) 4.7 %; NRBC Per 100 WBC 0 /100 WBCS (0.0-0.0); Neutrophils # (A) 6.18 X 10*3/uL (1.80-7.70); Neutrophils % (A) 69.1 %; Platelet Count 291 X 10*3/uL (140-440); RDW 13.3 % (11.5-14.5); WBC 8.95 X 10*3/uL (4.50-10.00)
== END | disposition home or self-care (01) ==
LOC: LABWHC1 09:27
PROVIDERS: ATTEND Obstetrics & Gynecology
DX: Z01.812 Encounter for preprocedural laboratory examination (principal)
CPT/HCPCS: 36415; 80048; 85025

== ENCOUNTER 2021-09-14 06:07 | Day surgery (SDC) | payer OTHER ==
[2021-09-09 12:25] VITALS: BMI 39.1
[~2021-09-14 06:07] MED LIST changes: +ACETAMINOPHEN TAB 500 MG TAB PO PRN; +HEPARIN SODIUM,PORCINE/PF 5,000 UNIT/0.5 ML SYRINGE SQ PRN; -LACTATED RINGERS 1,000 ML IV SCH; -LIDOCAINE 1% (10MG/ML) FOR IV START INTRADERMA PRN
[2021-09-14] MEDS ORDERED: DEXAMETHASONE SOD PHOSPHATE 4 MG/ML 1 ML VIAL IV ONE (06:25)
[2021-09-14] MEDS ORDERED: ONDANSETRON 4 MG/2 ML VIAL IVP ONE (06:25)
[2021-09-14] MEDS ORDERED: HYDROmorphone 0.5 MG/0.5 ML SYRINGE IVP PRN (06:25)
[2021-09-14] MEDS ORDERED: MIDAZOLAM 2 MG/2 ML VIAL IV PRN (06:25)
[2021-09-14] MEDS ORDERED: LIDOCAINE 1% (10MG/ML) FOR IV START INTRADERMA PRN (06:25)
[2021-09-14 06:51] LABS: Glucose,Whole Blood 157 mg/dL (75-99)
[2021-09-14] MEDS: LACTATED RINGERS 1,000 ML IV SCH (07:13)
--- NOTE | 2021-09-14 07:14 | P.HPOB ---
History of Present Illness H&P Date: 09/14/21 Chief Complaint: endometriosis He 6-year-old presents for total laparoscopic hysterectomy bilateral salpingo-oophorectomy using da Cesar and diagnostic cystoscopy. She also has a ventral hernia that Dr. Mayer will come look at during the case and repair if necessary. I discussed her pelvic pain with her extensively with several plans. Patient has been through several years of pain and has decided she wants definitive treatment after discussing this with her family. She knows she will go into menopause when I take out her ovaries and how this will affect her health. Review of Systems All systems: negative Constitutional: Denies chills, Denies fever Eyes: denies blurred vision, denies pain Ears, nose, mouth and throat: Denies headache, Denies sore throat Cardiovascular: Denies chest pain, Denies shortness of breath Respiratory: Denies cough Gastrointestinal: Denies abdominal pain, Denies diarrhea, Denies nausea, Denies vomiting Genitourinary: Denies dysuria, Denies hematuria Musculoskeletal: Denies myalgias Integumentary: Denies pruritus, Denies rash Neurological: Denies numbness, Denies weakness Psychiatric: Denies anxiety, Denies depression Endocrine: Denies fatigue, Denies weight change Past Medical History Past Medical History: Atrial Fibrillation, Asthma, Chest Pain / Angina, GERD/Reflux, Hearing Disorder / Deafness, Hyperlipidemia, Musculoskeletal Disorder, Skin Disorder, Thyroid Disorder Additional Past Medical History / Comment(s): [place] in left ear. DDD, recurrent back pain. Hx stomach ulcers. Sinus Tachycardia. Headaches. Dizziness at times. Numbness in rig Varicose veins in right leg. History of Any Multi-Drug Resistant Organisms: None Reported Past Surgical History: Back Surgery, Section, Uterine Ablation Additional Past Surgical History / Comment(s): 12/31/15 Revision laminectomy discectomy posterior lumbar decompression fusion, transforiminal lumbar interbody fusion L5-S1 with cell saver, Nerve Integrity Monitoring. Endometrium removed from left lower abdomen. Pyloric surgery as infant. Sections X2. Past Anesthesia/Blood Transfusion Reactions: No Reported Reaction, Family History of Problems w/ Anesthesia Additional Past Anesthesia/Blood Transfusion Reaction / Comment(s): Pt has never received blood. Hx hallucinations in Grandmother. Past Psychological History: Anxiety, Depression Smoking Status: Former smoker Past Alcohol Use History: None Reported Additional Past Alcohol Use History / Comment(s): Quit smoking 09/08/21. Started smoking at age 12 yrs, 1 ppd. Past Drug Use History: Marijuana Additional Drug Use History / Comment(s): Marijuana use daily. Aware no use 24 hrs prior to procedure. - Past Family History Father Family Medical History: Coronary Artery Disease (CAD), Myocardial Infarction ([place]) Additional Family Medical History / Comment(s): Father has stents. Blood clots in heart. Mother Family Medical History: No Reported History Additional Family Medical History / Comment(s): Mother has a bad back. Medications and Allergies Home Medications Medication Instructions Recorded Confirmed Type Sertraline HCl [Zoloft] 100 mg PO QAM 12/31/15 09/14/21 History Levothyroxine Sodium [Synthroid] 25 mcg PO QAM 04/29/17 09/14/21 History Ergocalciferol [Vitamin D2] 50,000 unit PO SA 09/16/18 09/14/21 History Hydrocodone/Acetaminophen [[place] 1 tab PO Q8H PRN 06/03/20 09/14/21 History 5-325] Albuterol Sulfate [Proair Hfa] 2 puff INHALATION RT-Q6H PRN 07/03/21 09/14/21 History Allergies Allergy/AdvReac Type Severity Reaction Status Date / Time clarithromycin [From Biaxin] AdvReac Severe Diarrhea Verified 09/09/21 12:00 Exam Osteopathic Statement: *. No significant issues noted on an osteopathic structural exam other than those noted in the History and Physical/Consult. Vital Signs Temp Pulse Resp BP Pulse Ox 09/14/21 06:35 96.4 F L 86 16 131/68 97 Intake and Output 09/13/21 09/14/21 09/14/21 22:59 06:59 14:59 Other: Weight 109.9 kg Heart: Regular rate and rhythm Lungs: Clear to auscultation bilaterally Abdomen: Soft, nontender Extremities: Negative Homans sign Results Abnormal Lab Results - Last 24 Hours (Table) 09/14/21 Range/Units 06:46 POC Glucose (mg/dL) 157 H (75-99) mg/dL Assessment and Plan (1) Endometriosis Current Visit: Yes Status: Acute Code(s): N80.9 - ENDOMETRIOSIS, UNSPECIFIED SNOMED Code(s): 356960897 (2) Pelvic pain Current Visit: No Status: Acute Code(s): R10.2 - PELVIC AND PERINEAL PAIN SNOMED Code(s): 23402586 Plan: 1. Total laparoscopic hysterectomy with bilateral salpingo-oophorectomy using da Cesar and diagnostic cystoscopy. Possible total hysterectomy bilateral salpingo-oophorectomy. Possible ventral hernia repair by Dr. Mayer.
[2021-09-14] MEDS ORDERED: diphenhydrAMINE 50 MG/ML 1 ML VIAL ONE (07:18)
[2021-09-14] MEDS ORDERED: diphenhydrAMINE 50 MG/ML 1 ML VIAL IVP ONE ×2 (07:19→10:25)
[2021-09-14] MEDS ORDERED: PROPOFOL 10 MG/ML 20 ML VIAL IV ONE (07:30)
[2021-09-14] MEDS ORDERED: MORPHINE SULFATE (PF) 0.3 MG/0.3 ML SYR ONE (07:30)
[2021-09-14] MEDS ORDERED: ALBUTEROL HFA INHALER INHALATION ONE (07:30)
[2021-09-14] MEDS ORDERED: fentaNYL (PF) 50 MCG/ML 2 ML AMP ONE (07:30)
[2021-09-14] MEDS ORDERED: ACETAMINOPHEN IV (For NPO) 1,000 MG/100 ML VIAL ONE (07:30)
[2021-09-14] MEDS ORDERED: GLYCOPYRROLATE 0.2 MG/ML 2 ML VIAL ONE (07:30)
[2021-09-14] MEDS ORDERED: LIDOCAINE 1% INJ 10MG/ML (20 ML MDV) ONE (07:30)
[2021-09-14] MEDS ORDERED: KETAMINE 10 MG/ML 20 ML VIAL ONE (07:30)
[2021-09-14] MEDS ORDERED: MIDAZOLAM 2 MG/2 ML VIAL ONE (07:30)
[2021-09-14] MEDS ORDERED: WATER FOR INJECTION, STERILE 10 ML VIAL IV ONE (07:30)
[2021-09-14] MEDS ORDERED: NEOSTIGMINE 1 MG/ML 10 ML VIAL ONE (07:30)
[2021-09-14] MEDS ORDERED: ePHEDrine 50 MG/ML 1 ML VIAL ONE (07:30)
[2021-09-14] MEDS ORDERED: ROCURONIUM 10 MG/ML (5 ML VIAL) IV ONE (07:30)
[2021-09-14] MEDS ORDERED: SUCCINYLCHOLINE CHLORIDE 100 MG/5 ML SYR IV ONE (07:30)
[2021-09-14] MEDS ORDERED: fentaNYL (PF) 50 MCG/ML 2 ML AMP IVP ONE (07:31)
--- NOTE | 2021-09-14 07:36 | P.GSHP ---
History of Present Illness H&P Date: 09/14/21 Chief Complaint: Abdominal wall mass 36-year-old female here today for gynecologic surgery. Patient was evaluated by myself in June. She had a CAT scan performed prior to that showing a nodule within the abdominal wall superior to the umbilicus. This possibly represents mass or hernia. She and I discussed that we would proceed with surgical evaluation of that area intraoperatively during her gynecologic procedure today. Past Medical History Past Medical History: Atrial Fibrillation, Asthma, Chest Pain / Angina, GERD/Reflux, Hearing Disorder / Deafness, Hyperlipidemia, Musculoskeletal Disorder, Skin Disorder, Thyroid Disorder Additional Past Medical History / Comment(s): [place] in left ear. DDD, recurrent back pain. Hx stomach ulcers. Sinus Tachycardia. Headaches. Dizziness at times. Numbness in rig Varicose veins in right leg. History of Any Multi-Drug Resistant Organisms: None Reported Past Surgical History: Back Surgery, Section, Uterine Ablation Additional Past Surgical History / Comment(s): 12/31/15 Revision laminectomy discectomy posterior lumbar decompression fusion, transforiminal lumbar interbody fusion L5-S1 with cell saver, Nerve Integrity Monitoring. Endometrium removed from left lower abdomen. Pyloric surgery as . Sections X2. Past Anesthesia/Blood Transfusion Reactions: No Reported Reaction, Family History of Problems w/ Anesthesia Additional Past Anesthesia/Blood Transfusion Reaction / Comment(s): Pt has never received blood. Hx hallucinations in Grandmother. Past Psychological History: Anxiety, Depression Smoking Status: Former smoker Past Alcohol Use History: None Reported Additional Past Alcohol Use History / Comment(s): Quit smoking 09/08/21. Started smoking at age 12 yrs, 1 ppd. Past Drug Use History: Marijuana Additional Drug Use History / Comment(s): Marijuana use daily. Aware no use 24 hrs prior to procedure. - Past Family History Father Family Medical History: Coronary Artery Disease (CAD), Myocardial Infarction ([place]) Additional Family Medical History / Comment(s): Father has stents. Blood clots in heart. Mother Family Medical History: No Reported History Additional Family Medical History / Comment(s): Mother has a bad back. Medications and Allergies Home Medications Medication Instructions Recorded Confirmed Type Sertraline HCl [Zoloft] 100 mg PO QAM 12/31/15 09/14/21 History Levothyroxine Sodium [Synthroid] 25 mcg PO QAM 04/29/17 09/14/21 History Ergocalciferol [Vitamin D2] 50,000 unit PO SA 09/16/18 09/14/21 History Hydrocodone/Acetaminophen [[place] 1 tab PO Q8H PRN 06/03/20 09/14/21 History 5-325] Albuterol Sulfate [Proair Hfa] 2 puff INHALATION RT-Q6H PRN 07/03/21 09/14/21 History Allergies Allergy/AdvReac Type Severity Reaction Status Date / Time clarithromycin [From Biaxin] AdvReac Severe Diarrhea Verified 09/09/21 12:00 Surgical - Exam Vital Signs Temp Pulse Resp BP Pulse Ox 96.4 F L 86 16 131/68 97 09/14/21 06:35 09/14/21 06:35 09/14/21 06:35 09/14/21 06:35 09/14/21 06:35 Physical exam: General: Well-developed, well-nourished HEENT: Normocephalic, sclerae nonicteric Abdomen: Nontender, nondistended Extremities: No edema Neuro: Alert and oriented Results - Labs Abnormal Lab Results - Last 24 Hours (Table) 09/14/21 Range/Units 06:46 POC Glucose (mg/dL) 157 H (75-99) mg/dL Assessment and Plan (1) Abdominal wall mass Narrative/Plan: 36-year-old female with abdominal wall mass. We'll surgically explore that area intraoperatively during gynecologic procedure. If hernia identified proceed with surgical repair with possible mesh. If masses seen Will excise and close fascia. Risks of bleeding, infection, recurrence, bladder and bowel injury, numbness, nerve injury, conversion to an open procedure were discussed with the patient. The patient understands and wishes to proceed. Current Visit: Yes Status: Acute Code(s): R22.2 - LOCALIZED SWELLING, MASS AND LUMP, TRUNK SNOMED Code(s): 159665082
[2021-09-14] MEDS ORDERED: BUPIVACAINE (PF) 0.25% 30 ML VIAL SQ ONE (08:19)
[2021-09-14] MEDS ORDERED: LACTATED RINGERS 1,000 ML IV ONE (09:03)
--- NOTE | 2021-09-14 09:41 | P.OP ---
Date of Procedure: 09/14/21 Preoperative Diagnosis: 1. pelvic pain 2. dysmenorrhea 3. endometriosis 4. possible ventral hernia Postoperative Diagnosis: same Procedure(s) Performed: TLH BSO with da vinciand diagnostic cystoscopy Anesthesia: MIK Surgeon: Damaris Hoffman Unleavened Dough Mixer #1: Anna Pritchett Estimated Blood Loss (ml): 50 IV fluids (ml): 1,000 Urine output (ml): 200 Pathology: other (uterus, cervix, bilateral tubes and ovaries) Condition: stable Disposition: PACU Operative Findings: Endometrioma on the left filmy scar tissue from the uterine fundus and the posterior pelvic wall, inflamed left fallopian tube, fibroid uterus. Description of Procedure: Patient taken the operating room where general anesthesia was obtained without difficulty. She is prepped and draped in normal sterile fashion dorsal lithotomy position, legs placed in the Kimani stirrups. Weighted speculum placed in the vagina and the anterior lip the cervix was grasped with single-tooth tenaculum. The uterus sounded to 6 cm and the cervix diameter was 3 cm. The appropriate manipulator tip and ring were placed on the Christa manipulator. The Christa manipulator was then placed in the uterus. Hayes catheter was also placed. Attention was then turned to the abdomen and gloves were changed. A 5 mm supraumbilical incision was made the scalpel and a 5 mm optical trocar was placed under direct visualization. 10 cm to the right of this and 2 cm down a 5 mm incision was made and 8 mm da Cesar port was placed under direct visualization. Same measurements on the opposite side of the patient's abdomen, the 5 mm incision was made and 8 mm da Cesar port was placed under direct visualization. In the left upper quadrant a 10 mm incision was made and a 10 mm optical trocar was placed under direct visualization. The 5 mm optical trocar was then replaced with the 8 mm da Cesar camera port. The robot was docked on patient's right side. The camera was introduced and then the monopolar curved scissor and [place] bipolar placed under direct visualization. I broke scrub and went to the physician console. The left infundibulopelvic ligament was cauterized with the [place] bipolar and cut with monopolar curved scissors. The left round ligament was cauterized with the [place] bipolar and cut with monopolar curved scissors. The posterior leaf of the broad ligament was taken down using the monopolar curved scissors. Anterior leaf of the broad ligament was then taken down using the monopolar curved scissors. The uterine artery was cauterized with the [place] bipolar and cut with monopolar curved scissors. The bladder flap was then started using the monopolar curved scissors. Attention was then turned to the right side of the patient's anatomy and the right infundibular pelvic ligament was cauterized with the [place] bipolar and cut with monopolar curved scissors. The right round ligament was cauterized with the [place] bipolar and cut with monopolar curved scissors. Posterior leaf of the broad ligament was taken down using the monopolar curved scissors and the anterior leaf was taken down using the monopolar curved scissors. The uterine artery was cauterized the [place] bipolar cut with monopolar curved scissors. The bladder flap was then finished on this side. Anterior colpotomy was made using the monopolar curved scissors. The rest of the uterus was from the vaginal cuff by following the ring around with the monopolar curved scissors through the uterosacral ligaments back to the anterior portion. Once the uterus and cervix were amputated they were pulled through the vaginal cuff. Hemostasis was assured. The instruments were changed for the Cardier forcep and the dejah suture cut. The vaginal cuff was then closed using O stratafix barbed suture in a running fashion. Hemostasis was again assured and the pelvis was irrigated. All instruments were removed from the abdomen and the robot was undocked. I scrubbed back in to perform a cystoscopy. There were jets from both ureteral orifices. The abdominal incisions were closed with 4-0 Vicryl in a subcuticular fashion. Patient tolerated the procedure well, sponge and instrument counts correct [address] Mayer entered the room to perform his portion of this procedure.
--- NOTE | 2021-09-14 10:01 | P.OP ---
Date of Procedure: 09/14/21 Procedure(s) Performed: PREOPERATIVE DIAGNOSIS: Abdominal wall mass POSTOPERATIVE DIAGNOSIS: Small incarcerated incisional hernia PROCEDURE: Open repair incarcerated incisional hernia SURGEON: Moreno EBL: Marky Scott ANESTHESIA: Gen. COMPLICATIONS: None OPERATIVE PROCEDURE: Patient was kept in the operating room after her robotic hysterectomy. Patient remained in lithotomy. The previous laparoscopy incisions were all closed with the exception of a 1 cm horizontal incision approximately 6 cm superior to the umbilicus. The patient's previous scar was present 2-3 cm superior to the umbilicus and was horizontal as well. Given the location from the CAT scan I opted to re-incise the previous horizontal suprau mbilical scar site and this was lengthened as well for a total size of approximately 3-4 cm. The subcutaneous tissues were divided using electrocautery. As soon as we reached the fascia we quickly identified a incarcerated incisional hernia from the previous trocar entrance site. The fascia was cleared of the adherent adipose tissue. The hernia sac was dissected back to the fascial opening where the hernia sac was able to be reduced back into the preperitoneal space. Size of the defect was 1.5 x 1.5 cm. This was closed using interrupted [id number] 0 Ethibond sutures. No mesh was used given the nature of this surgery. Subcutaneous tissues were then closed using 3-0 Vicryl sutures and the skin was closed using a running 4-0 Monocryl stitch. The additional trocar entrance site superior to that was also closed using a 4-0 Monocryl subcuticular suture. Skin glue was applied. DISPOSITION: Stable to recovery room
[2021-09-14] MEDS ORDERED: NALOXONE 0.4 MG/ML 1 ML VIAL IV PRN (10:05)
--- NOTE | 2021-09-14 10:05 | P.ANPRN ---
Procedure Note - Anesthesia - Epidural/Spinal Spinal Time Out Performed: Yes Date of Procedure: 09/14/21 Procedure Start Time: :02 Procedure Stop Time: 07:08 Location of Patient: PreOp Indication: Acute Post-Operative Pain Sedation Type: Sedate with meaningful contact maintained Preparation: Sterile Prep Position: Sitting Catheter: None Needle Guage: 25, Other (see comment) (3.5 inch Di) Blood Aspirated: No Pain Paresthesia on Injection Noted: No Events: Uneventful and Well Tolerated (After clear CSF flow - mixture of 300 g of preservative free morphine, and 25 g of fentanyl injected into the subarachnoid space)
[2021-09-14] MEDS ORDERED: SIMETHICONE 80 MG CHEWABLE PO PRN (10:22)
[2021-09-14] MEDS ORDERED: ONDANSETRON 4 MG/2 ML VIAL IVP PRN (10:22)
[2021-09-14] MEDS ORDERED: KETOROLAC 15 MG/ML 1 ML VIAL IVP PRN (10:22)
[2021-09-14] MEDS ORDERED: ALBUTEROL NEBULIZED 2.5 MG/3 ML INHALATION PRN (10:22)
[2021-09-14] MEDS ORDERED: METOCLOPRAMIDE 5 MG/ML 2 ML VIAL IVP PRN (10:22)
[2021-09-14] MEDS: NICOTINE 21MG/24HR PATCH TRANSDERM SCH (13:22)
[2021-09-14] MEDS: diphenhydrAMINE 50 MG/ML 1 ML VIAL IVP PRN ×2 (13:28→20:00)
[2021-09-14] MEDS: HYDROcodone/APAP 7.5-325MG 1 EACH TAB PO PRN (19:59)
[2021-09-14] MEDS: SENNOSIDES-DOCUSATE SODIUM 1 EACH TAB PO SCH (20:01)
[2021-09-15] MEDS: HYDROcodone/APAP 7.5-325MG 1 EACH TAB PO PRN (05:42)
[2021-09-15 06:13] LABS: Basophils % (A) 0 %; Eosinophils # (A) 0.1 k/uL (0-0.7); Eosinophils % (A) 1 %; HCT 44.1 % (34.0-46.0); HGB 14.3 gm/dL (11.4-16.0); Lymphocytes # (A) 3.4 k/uL (1.0-4.8); Lymphocytes % (A) 31 %; MCH 30.3 pg (25.0-35.0); MCHC 32.5 g/dL (31.0-37.0); MCV 93.3 fL (80.0-100.0); Mean Platelet Volume 7.9; Monocytes # (A) 0.4 k/uL (0-1.0); Monocytes % (A) 4 %; Neutrophils # (A) 6.9 k/uL (1.3-7.7); Neutrophils % (A) 63 %; Platelet Count 298 k/uL (150-450); RBC 4.73 m/uL (3.80-5.40); RDW 13.4 % (11.5-15.5)
[2021-09-15] MEDS ORDERED: LEVOTHYROXINE 25 MCG TAB PO SCH (06:30)
--- NOTE | 2021-09-15 07:03 | P.PN ---
Progress Note - Text Progress Note Date: 09/15/21 Postoperative day 1 status post robotic hysterectomy, under general endotracheal anesthesia, and intrathecal morphine given for postoperative analgesia, patient doing well, there is no anesthesia related complications, Patient had no headache, vital signs stable , Assessment and plan= postop day 1 , doing well there is no anesthesia related complication.
[2021-09-15] MEDS: SENNOSIDES-DOCUSATE SODIUM 1 EACH TAB PO SCH (08:12)
[2021-09-15] MEDS: NICOTINE 21MG/24HR PATCH TRANSDERM SCH (08:13)
[2021-09-15] MEDS: LACTATED RINGERS 1,000 ML IV SCH (08:20)
[2021-09-15 08:24] VITALS: BP 128/85; PULSE 68; RESP 18; TEMP 97.4
--- NOTE | 2021-09-15 08:41 | P.DS ---
Providers Date of admission: 09/14/21 Expected date of discharge: 09/15/21 Attending physician: Damaris Hoffman Primary care physician: Celeste Cheng - Discharge Diagnosis(es) (1) Endometriosis Current Visit: Yes Status: Chronic (2) Pelvic pain Current Visit: No Status: Chronic (3) Status post repeat low transverse section Current Visit: Yes Status: Acute Hospital Course: She presented for TLHBSO and hernia repair. She underwent these procedures without complication. She denies nausea, vomiting, chest pain, shortness of breath or calf pain. Her incisions are clean, dry, intact. Patient will be discharged home postoperative day #1 in stable condition to follow-up with me in 3 weeks. Plan - Discharge Summary Discharge Rx Participant: No New Discharge Prescriptions: New HYDROcodone/APAP 7.5-325MG [[place] 7.5-325] 1 each PO Q4-6H PRN #18 tab PRN Reason: Pain Ibuprofen [Motrin] 600 mg PO Q6HR PRN #30 tab PRN Reason: Mild Pain Or Fever >= 100.5 Continue Levothyroxine Sodium [Synthroid] 25 mcg PO QAM #30 tab No Action Sertraline HCl [Zoloft] 100 mg PO QAM Ergocalciferol [Vitamin D2] 50,000 unit PO SA Hydrocodone/Acetaminophen [[place] 5-325] 1 tab PO Q8H PRN PRN Reason: Pain Albuterol Sulfate [Proair Hfa] 2 puff INHALATION RT-Q6H PRN PRN Reason: Shortness Of Breath Discharge Medication List Sertraline HCl [Zoloft] 100 mg PO QAM 12/31/15 [History] Ergocalciferol [Vitamin D2] 50,000 unit PO SA 09/16/18 [History] Hydrocodone/Acetaminophen [[place] 5-325] 1 tab PO Q8H PRN 06/03/20 [History] Albuterol Sulfate [Proair Hfa] 2 puff INHALATION RT-Q6H PRN 07/03/21 [History] HYDROcodone/APAP 7.5-325MG [[place] 7.5-325] 1 each PO Q4-6H PRN #18 tab 09/15/21 [Rx] Ibuprofen [Motrin] 600 mg PO Q6HR PRN #30 tab 09/15/21 [Rx] Levothyroxine Sodium [Synthroid] 25 mcg PO QAM #30 tab 09/15/21 [Rx] Follow up Appointment(s)/Referral(s): Peter Mayer MD [Medical Doctor] - 09/30/21 1:50 pm Damaris Hoffman DO [Doctor of Osteopathic Medicine] - 3 Weeks Discharge Disposition: HOME SELF-CARE
[2021-09-15] MEDS ORDERED: SERTRALINE 100 MG TAB PO SCH (09:00)
[2021-09-15] MEDS ORDERED: BENZOCAINE/MENTHOL LOZENG 1 EACH LOZENGE MUCOUS MEM PRN (09:07)
[2021-09-15] MEDS ORDERED: IBUPROFEN 600 MG TAB PO SCH (13:00)
== END 2021-09-15 10:30 | disposition home or self-care (01) ==
LOC: OR 06:07 → 4FBP 09:45 → OR 09-15 10:30
PROVIDERS: ATTEND Obstetrics & Gynecology
DX: N80.2 Endometriosis of fallopian tube (principal); N80.1 Endometriosis of ovary; K43.0 Incisional hernia with obstruction, without gangrene; N94.6 Dysmenorrhea, unspecified; R10.2 Pelvic and perineal pain; D25.9 Leiomyoma of uterus, unspecified; N83.291 Other ovarian cyst, right side; E07.9 Disorder of thyroid, unspecified; I48.91 Unspecified atrial fibrillation; J45.909 Unspecified asthma, uncomplicated; I20.9 Angina pectoris, unspecified; K21.9 Gastro-esophageal reflux disease without esophagitis; E78.5 Hyperlipidemia, unspecified; H91.92 Unspecified hearing loss, left ear; R00.0 Tachycardia, unspecified; R51.9 Headache, unspecified; I83.891 Varicose veins of right lower extremity with other complications; F41.9 Anxiety disorder, unspecified; F32.A Depression, unspecified; Z79.890 Hormone replacement therapy; Z79.899 Other long term (current) drug therapy; Z88.1 Allergy status to other antibiotic agents; Z98.891 History of uterine scar from previous surgery; Z98.890 Other specified postprocedural states; Z87.891 Personal history of nicotine dependence; Z98.1 Arthrodesis status; Z82.49 Family history of ischemic heart disease and other diseases of the circulatory system; Z80.3 Family history of malignant neoplasm of breast; Z80.41 Family history of malignant neoplasm of ovary
CPT/HCPCS: 81025; 86900; 86901; 85025; 86850; 88307; 58571; 49561; S4990 ×2; J2250; J1200; J1100; J2710; J0690; J2405; J2001; J2274; J3010; J0131; J1885; J0330; J2704; J1644

== ENCOUNTER 2021-09-21 16:53 | Emergency (ER) | payer OTHER ==
[2021-09-21 16:57] VITALS: TEMP 98.5
[2021-09-21] MEDS ORDERED: SODIUM CHLORIDE 0.9% 1,000 ML IV STA ×2 (19:17→21:35)
[2021-09-21] MEDS ORDERED: ONDANSETRON 4 MG/2 ML VIAL IVP STA ×2 (19:17→21:35)
[2021-09-21] MEDS ORDERED: HYDROmorphone 0.5 MG/0.5 ML SYRINGE IVP STA (19:17)
--- NOTE | 2021-09-21 19:17 | ED ---
General Adult HPI - General Chief complaint: Abdominal Pain Stated complaint: abd pain Time Seen by Provider: 09/21/21 18:46 Source: patient, RN notes reviewed Mode of arrival: ambulatory Limitations: no limitations - History of Present Illness Initial comments: 36-year-old female presents to the emergency department for evaluation of abdominal pain status post surgery 09/14/2021. Patient states she has had increased discomfort she describes as stabbing knifelike pain shooting across her mid abdomen since Tuesday. Patient states she has been attempting to decrease the amount of pain medication and stool softeners that she's taken since surgery therefore was uncertain if this was normal healing pain. Reports having a bowel movement daily though describes it as small and hard. Patient states she spoke with her surgeon's office earlier today and was instructed to come to the emergency department as her surgeon is not available. Upon further clarification, patient states she had both an abdominal surgery and a hysterectomy involving two surgeons. States she is also having some malodorous vaginal discharge and urinary discomfort as well. Denies fever, chills, headache, dizziness, chest pain, shortness of breath, difficulty breathing, constipation, diarrhea, and hematuria. - Related Data Home Medications Medication Instructions Recorded Confirmed Ergocalciferol [Vitamin D2] 50,000 unit PO SA 09/16/18 09/21/21 Hydrocodone/Acetaminophen [[place] 1 tab PO DIRECTED PRN 06/03/20 09/21/21 5-325] Albuterol Sulfate [Proair Hfa] 2 puff INHALATION RT-Q6H PRN 07/03/21 09/21/21 HYDROcodone/APAP 7.5-325MG [[place] 1 tab PO Q4-6H PRN 09/21/21 09/21/21 7.5-325] Levothyroxine Sodium [Synthroid] 25 mcg PO DAILY 09/21/21 09/21/21 Previous Rx's Medication Instructions Recorded Ibuprofen [Motrin] 600 mg PO Q6HR PRN #30 tab 09/15/21 Docusate [Colace] 100 mg PO BID PRN #30 capsule 09/21/21 Simethicone [Gas-X] 125 mg PO QID PRN #30 capsule 09/21/21 Allergies Allergy/AdvReac Type Severity Reaction Status Date / Time clarithromycin [From Biaxin] AdvReac Severe Diarrhea Verified 09/21/21 19:44 Review of Systems ROS Statement: Those systems with pertinent positive or pertinent negative responses have been documented in the HPI. ROS Other: All systems not noted in ROS Statement are negative. 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 DDD, recurrent back pain. Hx stomach ulcers. Sinus Tachycardia. Headaches. Dizziness at times. Numbness in rig Varicose veins in right leg. History of Any Multi-Drug Resistant Organisms: None Reported Past Surgical History: Hernia Repair, Hysterectomy Additional Past Surgical History / Comment(s): 12/31/15 Revision laminectomy discectomy posterior lumbar decompression fusion, transforiminal lumbar interbody fusion L5-S1 with cell saver, NIM cord monitoring. Pyloric surgery INFANT, low BACK SURGERIES x2, C-Sections x2. Past Anesthesia/Blood Transfusion Reactions: No Reported Reaction, Family History of Problems w/ Anesthesia Additional Past Anesthesia/Blood Transfusion Reaction / Comment(s): Pt has never recieved blood. Hx hallucinations in grandmother Past Psychological History: Anxiety, Depression Smoking Status: Current every day smoker Past Alcohol Use History: None Reported Past Drug Use History: None Reported - Past Family History Father Family Medical History: Coronary Artery Disease (CAD), Myocardial Infarction (PR) Mother Family Medical History: No Reported History General Exam Limitations: no limitations (Well-developed, well-nourished female in no acute distress. Initial temperature 98.5, pulse 83, respirations 20, blood pressure 154/86, pulse ox 96% on room air.) General appearance: alert, in no apparent distress Eye exam: Present: normal appearance, PERRL, EOMI. Absent: scleral icterus, conjunctival injection, periorbital swelling ENT exam: Present: normal oropharynx, mucous membranes moist Respiratory exam: Present: normal lung sounds bilaterally. Absent: respiratory distress, wheezes, rales, rhonchi, stridor Cardiovascular Exam: Present: regular rate, normal rhythm, normal heart sounds. Absent: systolic murmur, diastolic murmur, rubs, gallop, clicks GI/Abdominal exam: Present: soft, tenderness (mild lizbeth-umbilical tenderness upon palpation ), guarding (guarding of the upper abdomen), normal bowel sounds, other (incision sites appear well-approximated with no surrounding erythema or drainage.). Absent: distended, rebound, rigid External exam: Present: normal external exam Speculum exam: Present: normal speculum exam (gentle speculum exam reveals scant amount of thin discharge visualized in vaginal vault; no bleeding or odor ) Back exam: Absent: CVA tenderness (R), CVA tenderness (L) Neurological exam: Present: alert, oriented X3, CN II-XII intact Psychiatric exam: Present: normal affect, normal mood Skin exam: Present: warm, dry, intact, normal color Course Vital Signs 09/21/21 09/21/21 16:54 22:38 Temperature 98.5 F Pulse Rate 83 70 Respiratory 20 18 Rate Blood Pressure 154/86 150/88 O2 Sat by Pulse 96 95 Oximetry - Reevaluation(s) Reevaluation #1: 09/21/21 20:00 Upon reevaluation, patient is resting more comfortably after having received medications for pain and nausea. Discussed CT, patient is agreeable with this POC. 09/21/21 21:30 Updated patient on findings. She states her discomfort is returning, though is primarily nausea and not as much pain. Will medicate and reassess. 09/21/21 22:[address] Thomas regarding patient's workup and physical exam findings. She recommends an abdominal binder and ice application. Also suggested simethicone for gas discomfort. Suggestions were discussed with patient. She verbalizes understanding and agrees with this plan. Medical Decision Making - Medical Decision Making 36-year-old female with a past medical history of recent hernia repair and hysterectomy presents to the emergency department for evaluation of abdominal pain she describes is sharp movement across the upper abdomen. Upon exam, patient is well-appearing and in no acute distress. Vital signs are stable. She is afebrile and not tachycardic. Abdomen is soft and minimally tender upon palpation. Incision sites appear to be healing well. Bowel sounds are active. She was given IV fluids and pain/nausea medicines with improvement. Laboratory studies were reviewed and are unremarkable. CT of the abdomen and pelvis is as expected with postsurgical changes. I did speak with the on-call surgeon to discuss patient's ED work-up. She suggests an abdominal binder and adding Simethicone for gas discomfort; patient is agreeable with this. She is encouraged to continue utilizing ice. I will add Colace as patient is hesitant t o take pain medications due to concerns with developing constipation. Instructed to keep all scheduled follow up appointments. Return parameters were discussed in detail. Patient verbalizes understanding and agrees with this plan. Attending: Jeremias. - Lab Data Result diagrams: 09/21/21 19:25 09/21/21 19:25 Lab Results 09/21/21 09/21/21 09/21/21 Range/Units 19:25 19:25 19:25 WBC 9.6 (3.8-10.6) k/uL RBC 4.76 (3.80-5.40) m/uL Hgb 14.7 (11.4-16.0) gm/dL Hct 42.6 (34.0-46.0) % MCV 89.5 (80.0-100.0) fL MCH 30.9 (25.0-35.0) pg MCHC 34.6 (31.0-37.0) g/dL RDW 13.8 (11.5-15.5) % Plt Count 342 (150-450) k/uL MPV 7.5 Neutrophils % 68 % Lymphocytes % 22 % Monocytes % 4 % Eosinophils % 3 % Basophils % 0 % Neutrophils # 6.6 (1.3-7.7) k/uL Lymphocytes # 2.1 (1.0-4.8) k/uL Monocytes # 0.3 (0-1.0) k/uL Eosinophils # 0.3 (0-0.7) k/uL Basophils # 0.0 (0-0.2) k/uL PT (9.0-12.0) sec INR (<1.2) APTT (22.0-30.0) sec Sodium 136 L (137-145) mmol/L Potassium 4.3 (3.5-5.1) mmol/L Chloride 102 (98-107) mmol/L Carbon Dioxide 23 (22-30) mmol/L Anion Gap 11 mmol/L BUN 13 (7-17) mg/dL Creatinine 0.58 (0.52-1.04) mg/dL Est GFR (CKD-EPI)AfAm >90 (>60 ml/min/1.73 sqM) Est GFR (CKD-EPI)NonAf >90 (>60 ml/min/1.73 sqM) Glucose 136 H (74-99) mg/dL Plasma Lactic Acid Luigi (0.7-2.0) mmol/L Calcium 8.8 (8.4-10.2) mg/dL Total Bilirubin 0.8 (0.2-1.3) mg/dL AST 25 (14-36) U/L ALT 20 (4-34) U/L Alkaline Phosphatase 55 (38-126) U/L Total Protein 7.5 (6.3-8.2) g/dL Albumin 4.4 (3.5-5.0) g/dL Lipase 58 (23-300) U/L Urine Color Yellow Urine Appearance Clear (Clear) Urine pH 6.0 (5.0-8.0) Ur Specific [place] 1.026 (1.001-1.035) Urine Protein Negative (Negative) Urine Glucose (UA) Negative (Negative) Urine Ketones Negative (Negative) Urine Blood Negative (Negative) Urine Nitrite Negative (Negative) Urine Bilirubin Negative (Negative) Urine Urobilinogen <2.0 (<2.0) mg/dL Ur Leukocyte Esterase Negative (Negative) Blood Type Blood Type Recheck Bld Type Recheck Status Antibody Screen Spec Expiration Date 09/21/21 09/21/21 09/21/21 Range/Units 19:33 19:33 19:33 WBC (3.8-10.6) k/uL RBC (3.80-5.40) m/uL Hgb (11.4-16.0) gm/dL Hct (34.0-46.0) % MCV (80.0-100.0) fL MCH (25.0-35.0) pg MCHC (31.0-37.0) g/dL RDW (11.5-15.5) % Plt Count (150-450) k/uL MPV Neutrophils % % Lymphocytes % % Monocytes % % Eosinophils % % Basophils % % Neutrophils # (1.3-7.7) k/uL Lymphocytes # (1.0-4.8) k/uL Monocytes # (0-1.0) k/uL Eosinophils # (0-0.7) k/uL Basophils # (0-0.2) k/uL PT 10.1 (9.0-12.0) sec INR 0.9 (<1.2) APTT 24.2 (22.0-30.0) sec Sodium (137-145) mmol/L Potassium (3.5-5.1) mmol/L Chloride (98-107) mmol/L Carbon Dioxide (22-30) mmol/L Anion Gap mmol/L BUN (7-17) mg/dL Creatinine (0.52-1.04) mg/dL Est GFR (CKD-EPI)AfAm (>60 ml/min/1.73 sqM) Est GFR (CKD-EPI)NonAf (>60 ml/min/1.73 sqM) Glucose (74-99) mg/dL Plasma Lactic Acid Luigi 1.0 (0.7-2.0) mmol/L Calcium (8.4-10.2) mg/dL Total Bilirubin (0.2-1.3) mg/dL AST (14-36) U/L ALT (4-34) U/L Alkaline Phosphatase (38-126) U/L Total Protein (6.3-8.2) g/dL Albumin (3.5-5.0) g/dL Lipase (23-300) U/L Urine Color Urine Appearance (Clear) Urine pH (5.0-8.0) Ur Specific [place] (1.001-1.035) Urine Protein (Negative) Urine Glucose (UA) (Negative) Urine Ketones (Negative) Urine Blood (Negative) Urine Nitrite (Negative) Urine Bilirubin (Negative) Urine Urobilinogen (<2.0) mg/dL Ur Leukocyte Esterase (Negative) Blood Type A Negative Blood Type Recheck A Neg Bld Type Recheck Status No Antibody Screen NEGATIVE Spec Expiration Date 09/24/2021 - 2332 - Radiology Data Radiology results: report reviewed, image reviewed CT of the abdomen and pelvis with contrast was obtained. Report was reviewed in its entirety. Impression per Dr. Machado as normal appendix. Postsurgical changes with fat stranding at the umbilicus. Small amount of low density free fluid in the pelvis could be postsurgical changes. No free air seen to suggest bowel perforation. Disposition Clinical Impression: Postoperative abdominal pain Disposition: HOME SELF-CARE Condition: Stable Instructions (If sedation given, give patient instructions): Gas and Bloating (ED), Abdominal Pain (ED) Additional Instructions: Abdominal binder is recommended. Apply ice to abdomen for no more than 20 minutes of every hour. Continue taking home medications as prescribed. Take stool softener twice daily for the next three days. Simethicone is prescribed for gas pain; may take up to four times daily. Follow up with Dr. Mayer as scheduled. Return to the emergency department with any new, worsening, or concerning symptoms. Prescriptions: Docusate [Colace] 100 mg PO BID PRN #30 capsule PRN Reason: Constipation Simethicone [Gas-X] 125 mg PO QID PRN #30 capsule PRN Reason: Bloating Is patient prescribed a controlled substance at d/c from ED?: No Referrals: Celeste Cheng III, MD [Primary Care Provider] - 1-2 days Peter Mayer MD [Medical Doctor] - 1-2 days Time of Disposition: 22:25
[2021-09-21 19:33] LABS: Basophils % (A) 0 %; Eosinophils # (A) 0.3 k/uL (0-0.7); Eosinophils % (A) 3 %; HCT 42.6 % (34.0-46.0); HGB 14.7 gm/dL (11.4-16.0); Lymphocytes # (A) 2.1 k/uL (1.0-4.8); Lymphocytes % (A) 22 %; MCH 30.9 pg (25.0-35.0); MCHC 34.6 g/dL (31.0-37.0); MCV 89.5 fL (80.0-100.0); Mean Platelet Volume 7.5; Monocytes # (A) 0.3 k/uL (0-1.0); Monocytes % (A) 4 %; Neutrophils # (A) 6.6 k/uL (1.3-7.7); Neutrophils % (A) 68 %; Platelet Count 342 k/uL (150-450); RBC 4.76 m/uL (3.80-5.40); RDW 13.8 % (11.5-15.5); WBC 9.6 k/uL (3.8-10.6)
[2021-09-21 19:37] LABS: Appearance,Urine Clear (Clear); Bilirubin,Urine Negative (Negative); Blood,Urine Negative (Negative); Color,Urine Yellow; Glucose,Urine (UA) Negative (Negative); Ketones,Urine Negative (Negative); Leukocyte Esterase,Urine Negative (Negative); Nitrite,Urine Negative (Negative); Protein,Urine Negative (Negative); Specific Gravity,Urine 1.026 (1.001-1.035); Urobilinogen,Urine <2.0 mg/dL (<2.0)
[2021-09-21 19:41] LABS: ALT 20 U/L (4-34); AST 25 U/L (14-36); African American GFR (CKD) >90 (>60 ml/min/1.73 sqM); Albumin 4.4 g/dL (3.5-5.0); Alkaline Phosphatase 55 U/L (38-126); Anion Gap 11 mmol/L; Blood Urea Nitrogen 13 mg/dL (7-17); Calcium 8.8 mg/dL (8.4-10.2); Carbon Dioxide 23 mmol/L (22-30); Chloride 102 mmol/L (98-107); Glucose 136 mg/dL (74-99); Lipase 58 U/L (23-300); Non-African American GFR(CKD) >90 (>60 ml/min/1.73 sqM); Potassium 4.3 mmol/L (3.5-5.1); Sodium 136 mmol/L (137-145); Total Bilirubin 0.8 mg/dL (0.2-1.3); Total Protein 7.5 g/dL (6.3-8.2)
[2021-09-21 20:26] LABS: INR 0.9 (<1.2); Partial Thromboplastin Time 24.2 sec (22.0-30.0); Prothrombin Time 10.1 sec (9.0-12.0)
--- NOTE | 2021-09-21 20:55 | CT ---
EXAMINATION TYPE: CT abdomen pelvis w con DATE OF EXAM: 09/21/2021 COMPARISON: 07/03/2021 HISTORY: Post op pain. Recent hysterectomy, unbilical hernia repair CT DLP: 2295.7 mGycm Automated exposure control for dose reduction was used. CONTRAST: Performed with IV Contrast, patient injected with 100 mL of Isovue 300. Images obtained from the diaphragm to the floor the pelvis with IV contrast. Lung bases are clear. There is no pleural effusion. Heart size is normal. There is no pericardial eff usion. Liver spleen stomach pancreas and gallbladder appear intact. Bile duct are not dilated. There is no adrenal mass. Kidneys show satisfactory contrast opacification. There is no hydronephrosi s. Ureters are not dilated. Delayed images show normal renal excretion. There is no retroperitoneal a denopathy. There is small amount of free fluid in the pelvis. The bladder distends smoothly. There is no inguinal hernia. Appendix is posterior and appears normal. There is no mesenteric edema. No evidence of free air. There is some fat stranding around the umbilic us in the subcutaneous fat. The lumbar vertebra have normal alignment. There is posterior fusion surgery at L5-S1. There is no co mpression fracture. I see no focal bone destruction. There is narrowing of L5-S1 disc space with oste osclerosis. The bony pelvis is intact. The hip joints are intact. Sacroiliac joints are intact. IMPRESSION: Normal appendix. Postsurgical changes with fat stranding at the umbilicus. Small amount of low-densit y free fluid in the pelvis could be postsurgical changes. No free air seen to suggest bowel perforati on.
[2021-09-21] MEDS ORDERED: KETOROLAC 15 MG/ML 1 ML VIAL IVP STA (21:35)
[2021-09-21] MEDS ORDERED: DOCUSATE 100 MG CAP PO STA (22:15)
[2021-09-21 22:40] VITALS: BP 150/88; PULSE 70; RESP 18
== END 2021-09-21 22:39 | disposition home or self-care (01) ==
LOC: EC 16:53
DX: R10.33 Periumbilical pain (principal); G89.18 Other acute postprocedural pain; J45.909 Unspecified asthma, uncomplicated; E78.5 Hyperlipidemia, unspecified; E07.9 Disorder of thyroid, unspecified; F41.9 Anxiety disorder, unspecified; F32.A Depression, unspecified; F17.200 Nicotine dependence, unspecified, uncomplicated; Z88.1 Allergy status to other antibiotic agents; Z90.710 Acquired absence of both cervix and uterus
CPT/HCPCS: 99284; 96374; 96375 ×2; 96376; 96361 ×2; 36415; 86900; 86901; 80053; 83605; 83690; 85025; 85610; 85730; 86850; 81003; 74177; J2405; J1885; J1170; Q9967

== ENCOUNTER 2021-09-25 07:46 | Emergency (ER) | payer OTHER ==
[2021-09-25 07:56] VITALS: BP 146/100; PULSE 85; RESP 18; TEMP 97.3
[2021-09-25] MEDS ORDERED: ONDANSETRON ODT 4 MG TAB PO STA (08:51)
[2021-09-25 09:03] LABS: Appearance,Urine Clear (Clear); Bilirubin,Urine Negative (Negative); Blood,Urine Negative (Negative); Color,Urine Yellow; Glucose,Urine (UA) Negative (Negative); Ketones,Urine Negative (Negative); Leukocyte Esterase,Urine Negative (Negative); Nitrite,Urine Negative (Negative); Protein,Urine Trace (Negative); Specific Gravity,Urine 1.019 (1.001-1.035); Urobilinogen,Urine <2.0 mg/dL (<2.0)
--- NOTE | 2021-09-25 09:42 | ED ---
General Adult HPI - General Chief complaint: Nausea/Vomiting/Diarrhea Stated complaint: Fever/Vomiting Time Seen by Provider: 09/25/21 08:00 Source: patient, family Mode of arrival: ambulatory Limitations: no limitations - History of Present Illness Initial comments: 36-year-old female presents to the emergency room for not feeling well. She reports that she has felt febrile for the past few days. States that her daughter is also sick. She has not taken Motrin or Tylenol today. She did develop some nausea vomiting over the past 2 days as well. She denies cough or sore throat. Denies abdominal pain or diarrhea. She is vaccinated for COVID- 19.Patient has no other complaints at this time including shortness of breath, chest pain, abdominal pain, nausea or vomiting, headache, or visual changes. - Related Data Home Medications Medication Instructions Recorded Confirmed Ergocalciferol [Vitamin D2] 50,000 unit PO SA 09/16/18 09/25/21 Hydrocodone/Acetaminophen [[place] 1 tab PO DIRECTED PRN 06/03/20 09/25/21 5-325] Albuterol Sulfate [Proair Hfa] 2 puff INHALATION RT-Q6H PRN 07/03/21 09/25/21 HYDROcodone/APAP 7.5-325MG [[place] 1 tab PO Q4-6H PRN 09/21/21 09/25/21 7.5-325] Levothyroxine Sodium [Synthroid] 25 mcg PO DAILY 09/21/21 09/25/21 Previous Rx's Medication Instructions Recorded Ibuprofen [Motrin] 600 mg PO Q6HR PRN #30 tab 09/15/21 Docusate [Colace] 100 mg PO BID PRN #30 capsule 09/21/21 Simethicone [Gas-X] 125 mg PO QID PRN #30 capsule 09/21/21 Ondansetron [Zofran ODT] 4 mg PO Q8HR PRN #15 tab 09/25/21 Allergies Allergy/AdvReac Type Severity Reaction Status Date / Time clarithromycin [From Biaxin] AdvReac Severe Diarrhea Verified 09/25/21 09:21 Review of Systems ROS Statement: Those systems with pertinent positive or pertinent negative responses have been documented in the HPI. ROS Other: All systems not noted in ROS Statement are negative. Past Medical History Past Medical History: Asthma, Chest Pain / Angina, Hearing Disorder / Deafness, Hyperlipidemia, Musculoskeletal Disorder, Skin Disorder, Thyroid Disorder Additional Past Medical History / Comment(s): [place] in left ear. DDD, recurrent back pain. Hx stomach ulcers. Sinus Tachycardia. Headaches. Dizziness at times. Numbness in rig Varicose veins in right leg. History of Any Multi-Drug Resistant Organisms: None Reported Past Surgical History: Hernia Repair, Hysterectomy Additional Past Surgical History / Comment(s): 12/31/15 Revision laminectomy discectomy posterior lumbar decompression fusion, transforiminal lumbar interbody fusion L5-S1 with cell saver, NIM cord monitoring. Pyloric surgery , low BACK SURGERIES x2, C-Sections x2. Past Anesthesia/Blood Transfusion Reactions: No Reported Reaction, Family History of Problems w/ Anesthesia Additional Past Anesthesia/Blood Transfusion Reaction / Comment(s): Pt has never recieved blood. Hx hallucinations in grandmother Past Psychological History: Anxiety, Depression Smoking Status: Current every day smoker Past Alcohol Use History: None Reported Past Drug Use History: None Reported - Past Family History Father Family Medical History: Coronary Artery Disease (CAD), Myocardial Infarction ([place]) Additional Family Medical History / Comment(s): Father has stents. Blood clots in heart. Mother Family Medical History: No Reported History Additional Family Medical History / Comment(s): Mother has a bad back. General Exam Limitations: no limitations General appearance: alert, in no apparent distress Head exam: Present: atraumatic Eye exam: Present: normal appearance, PERRL, EOMI. Absent: scleral icterus, conjunctival injection ENT exam: Present: normal exam, normal oropharynx, mucous membranes moist, TM's normal bilaterally, normal external ear exam Neck exam: Present: normal inspection, full ROM. Absent: tenderness Respiratory exam: Present: normal lung sounds bilaterally. Absent: respiratory distress, wheezes Cardiovascular Exam: Present: regular rate, normal rhythm, normal heart sounds GI/Abdominal exam: Present: soft, normal bowel sounds. Absent: distended, tenderness Course Vital Signs 09/25/21 07:53 Temperature 97.3 F L Pulse Rate 85 Respiratory 18 Rate Blood Pressure 146/100 O2 Sat by Pulse 95 Oximetry Medical Decision Making - Medical Decision Making Vitals are stable. Patient is afebrile. Physical exam unremarkable. Urinalysis is negative. COVID-19 is negative. Strep is negative. Patient likely has a viral syndrome. At this time we will treat her with Zofran for symptomatic relief. She will follow-up with her doctor. She will return to the emergency room for any worsening symptoms. - Lab Data Lab Results 09/25/21 09/25/21 09/25/21 Range/Units 08:37 08:37 08:37 Urine Color Yellow Urine Appearance Clear (Clear) Urine pH 6.0 (5.0-8.0) Ur Specific [place] 1.019 (1.001-1.035) Urine Protein Trace H (Negative) Urine Glucose (UA) Negative (Negative) Urine Ketones Negative (Negative) Urine Blood Negative (Negative) Urine Nitrite Negative (Negative) Urine Bilirubin Negative (Negative) Urine Urobilinogen <2.0 (<2.0) mg/dL Ur Leukocyte Esterase Negative (Negative) Urine HCG, Qual Not Detected (Not Detectd) Coronavirus (PCR) (Not Detectd) Group A Strep Rapid Negative (Negative) 09/25/21 Range/Units 08:37 Urine Color Urine Appearance (Clear) Urine pH (5.0-8.0) Ur Specific [place] (1.001-1.035) Urine Protein (Negative) Urine Glucose (UA) (Negative) Urine Ketones (Negative) Urine Blood (Negative) Urine Nitrite (Negative) Urine Bilirubin (Negative) Urine Urobilinogen (<2.0) mg/dL Ur Leukocyte Esterase (Negative) Urine HCG, Qual (Not Detectd) Coronavirus (PCR) Not Detected (Not Detectd) Group A Strep Rapid (Negative) Disposition Clinical Impression: Nausea Disposition: HOME SELF-CARE Condition: Good Instructions (If sedation given, give patient instructions): Acute Nausea and Vomiting (ED) Additional Instructions: please follow-up with your doctor in one to 2 days. Take Zofran as needed for nausea. Try a B-R-A-T diet consisting of bananas rice applesauce and toast. Return to the emergency room for any worsening symptoms. Prescriptions: Ondansetron [Zofran ODT] 4 mg PO Q8HR PRN #15 tab PRN Reason: Nausea Is patient prescribed a controlled substance at d/c from ED?: No Referrals: Celeste Cheng III, MD [Primary Care Provider] - 1-2 days Time of Disposition: 09:40
== END 2021-09-25 10:15 | disposition home or self-care (01) ==
LOC: EC 07:46
DX: R11.2 Nausea with vomiting, unspecified (principal); J45.909 Unspecified asthma, uncomplicated; E78.5 Hyperlipidemia, unspecified; E07.9 Disorder of thyroid, unspecified; F41.9 Anxiety disorder, unspecified; F32.A Depression, unspecified; F17.200 Nicotine dependence, unspecified, uncomplicated; Z20.822 Contact with and (suspected) exposure to COVID-19; Z90.710 Acquired absence of both cervix and uterus
CPT/HCPCS: 81003; 81025; 87081; 87430; 87635; 99284

== ENCOUNTER → 2022-04-02 | Outpatient (CLI) | payer OTHER ==
--- NOTE | 2022-04-02 09:42 | CT ---
EXAMINATION TYPE: CT soft tissue neck w con DATE OF EXAM: 04/02/2022 8:51 AM COMPARISON: None HISTORY: Palpable enlarged lymph nodes and weakness in the left arm and back CT DLP: 998.20 mGycm Automated exposure control for dose reduction was used. CONTRAST: CT scan of the neck is performed following with IV Contrast, patient injected with 70 mL of Isovue 30 0. Axial images are obtained, coronal and sagittal reformatted images are reviewed. FINDINGS: Lung apices are clear. Thyroid gland has a normal appearance. Vocal cords are normal. Oropharynx and nasopharynx is symmetric. Parotid and submandibular glands normal in appearance. The vasculature enhances normally. Orbits are symmetric. Visualized intracranial structures are symmetric. There are shotty benign-appearing lymph nodes in the subcutaneous mandibular space. There are multipl e subcentimeter shotty lymph nodes seen in the carotid space bilaterally the largest measuring short axis 9 mm. IMPRESSION: 1. There is shotty neck lymphadenopathy with borderline single enlarged lymph node measuring 9 mm in short axis in the right carotid space. No lymph nodes measuring short axis of 1 cm or greater
== END | disposition home or self-care (01) ==
LOC: RADCTMAIN 08:20
PROVIDERS: ATTEND Internal Medicine Hematology & Oncology
DX: R59.0 Localized enlarged lymph nodes (principal)
CPT/HCPCS: 70491; Q9967

== ENCOUNTER 2022-04-20 09:22 | Day surgery (SDC) | payer OTHER ==
[~2022-04-20 09:22] MED LIST changes: -ACETAMINOPHEN TAB 500 MG TAB PO PRN; -HEPARIN SODIUM,PORCINE/PF 5,000 UNIT/0.5 ML SYRINGE SQ PRN; +LACTATED RINGERS 1,000 ML IV SCH; +LIDOCAINE 1% (10MG/ML) FOR IV START INTRADERMA PRN
[2022-04-20 10:16] VITALS: TEMP 97.3
[2022-04-20] MEDS ORDERED: ONDANSETRON 4 MG/2 ML VIAL ONE (10:17)
[2022-04-20] MEDS ORDERED: PROPOFOL 10 MG/ML 20 ML VIAL IV ONE (10:27)
[2022-04-20] MEDS ORDERED: MIDAZOLAM 2 MG/2 ML VIAL ONE (10:27)
[2022-04-20] MEDS ORDERED: fentaNYL (PF) 50 MCG/ML 2 ML AMP ONE (10:27)
--- NOTE | 2022-04-20 10:35 | P.GSHP ---
History of Present Illness H&P Date: 04/20/22 Chief Complaint: rectal bleeding, anemia 36-year-old female here today for colonoscopy. Patient with history of anemia. She has intermittent episodes of bright red blood per rectum. Patient has vague abdominal discomforts as well. She sees hematology. Apparently she was supposed to have a EGD today as well but her insurance would not cover it for another month or so. Past Medical History Past Medical History: Asthma, Chest Pain / Angina, Hearing Disorder / Deafness, Hyperlipidemia, Musculoskeletal Disorder, Skin Disorder, Thyroid Disorder Additional Past Medical History / Comment(s): [place] in left ear. DDD, recurrent back pain. Hx stomach ulcers.stomach pain Sinus Tachycardia resolved at this time. Headaches. Dizziness at times. Numbness in rt leg,( hip to foot) Varicose veins in right leg. pt was on heart monitors and meds now resolved. liver and spleen enlarged it was hoped hysterectomy would help pt unsure if it did. psoriasis History of Any Multi-Drug Resistant Organisms: None Reported Past Surgical History: Hernia Repair, Hysterectomy Additional Past Surgical History / Comment(s): 12/31/15 Revision laminectomy discectomy posterior lumbar decompression fusion, transforiminal lumbar interbody fusion L5-S1 with cell saver, NIM cord monitoring. Pyloric surgery INFANT, low BACK SURGERIES x2, C-Sections x2. incisonal hernia repair. Past Anesthesia/Blood Transfusion Reactions: No Reported Reaction, Family History of Problems w/ Anesthesia Additional Past Anesthesia/Blood Transfusion Reaction / Comment(s): Pt has never recieved blood. Hx hallucinations in grandmother Smoking Status: Current every day smoker - Past Family History Father Family Medical History: Coronary Artery Disease (CAD), Myocardial Infarction ([place]) Additional Family Medical History / Comment(s): Father has stents. Blood clots in heart. Mother Family Medical History: No Reported History Additional Family Medical History / Comment(s): Mother has a bad back. Medications and Allergies Home Medications Medication Instructions Recorded Confirmed Type Ergocalciferol [Vitamin D2] 50,000 unit PO SA 09/16/18 04/16/22 History Hydrocodone/Acetaminophen [[place] 1 tab PO TID PRN 06/03/20 04/16/22 History 5-325] Albuterol Sulfate [Proair Hfa] 2 puff INHALATION RT-Q6H PRN 07/03/21 04/16/22 History Levothyroxine Sodium [Synthroid] 25 mcg PO DAILY 09/21/21 04/16/22 History Allergies Allergy/AdvReac Type Severity Reaction Status Date / Time clarithromycin [From Biaxin] AdvReac Severe Diarrhea Verified 04/16/22 15:02 Surgical - Exam Vital Signs Temp Pulse Resp BP Pulse Ox 97.3 F L 84 16 124/66 94 L 04/20/22 10:15 04/20/22 10:15 04/20/22 10:15 04/20/22 10:15 04/20/22 10:15 Physical exam: General: Well-developed, well-nourished HEENT: Normocephalic, sclerae nonicteric Abdomen: Nontender, nondistended Extremities: No edema Neuro: Alert and oriented Assessment and Plan (1) Rectal bleeding Narrative/Plan: Will proceed with colonoscopy at this time. Current Visit: Yes Status: Acute Code(s): K62.5 - HEMORRHAGE OF ANUS AND R ECTUM SNOMED Code(s): 77164581
--- NOTE | 2022-04-20 10:51 | P.PCN ---
Date of Procedure: 04/20/22 Procedure(s) Performed: PREOPERATIVE DIAGNOSIS: Rectal bleeding POSTOPERATIVE DIAGNOSIS: Normal exam PROCEDURE: Colonoscopy ANESTHESIA: MAC SURGEON: Peter Mayer M.D. SPECIMENS: None ENDOSCOPIC PROCEDURE: The patient was placed on the endoscopy table in the left decubitus position. The Olympus colonoscope was inserted into the anus and passed under direct visualization to the base of the cecum. The appendiceal orifice was visualized. From that point the scope was slowly withdrawn inspecting all surfaces carefully. There were no neoplastic inflammatory or polypoid lesions throughout the cecum, ascending, transverse, descending, sigmoid and rectum. There was no visible diverticulosis noted. Digital rectal examination was normal. The patient was taken to the recovery room in stable condition per anesthesia guidelines. RECOMMENDATIONS: Resume diet. Continue anemia workup.
[2022-04-20 11:14] VITALS: BP 129/88; PULSE 88; RESP 20
== END 2022-04-20 12:30 | disposition home or self-care (01) ==
LOC: ORWHC2ENDO 09:22
PROVIDERS: ATTEND Surgery
DX: K62.5 Hemorrhage of anus and rectum (principal); D64.9 Anemia, unspecified; E78.5 Hyperlipidemia, unspecified; E07.9 Disorder of thyroid, unspecified; I25.10 Atherosclerotic heart disease of native coronary artery without angina pectoris; F17.200 Nicotine dependence, unspecified, uncomplicated; Z90.710 Acquired absence of both cervix and uterus; Z98.1 Arthrodesis status; Z82.49 Family history of ischemic heart disease and other diseases of the circulatory system; Z79.51 Long term (current) use of inhaled steroids; Z79.899 Other long term (current) drug therapy
CPT/HCPCS: 45378; J2250; J2405; J3010; J2704

== ENCOUNTER → 2022-04-20 | Outpatient (CLI) | payer OTHER ==
--- NOTE | 2022-04-20 10:14 | XR ---
EXAMINATION TYPE: XR chest 2V DATE OF EXAM: 04/20/2022 COMPARISON: Chest x-ray 05/02/2020 HISTORY: Emphysema, asthma TECHNIQUE: Frontal and lateral views of the chest are obtained. FINDINGS: There is no focal air space opacity, pleural effusion, or pneumothorax seen. Bronchial wal l thickening is present. The cardiac silhouette size is within normal limits. Right hemidiaphragm rem ains elevated. The osseous structures are intact, there is thoracic spondylosis. IMPRESSION: Correlate for reactive airways disease, bronchitis.
== END | disposition home or self-care (01) ==
LOC: RADXRMAIN 09:25
PROVIDERS: ATTEND Internal Medicine Hematology & Oncology
DX: J43.8 Other emphysema (principal)
CPT/HCPCS: 71046

== ENCOUNTER 2022-04-22 09:28 | Emergency (ER) | payer OTHER ==
[2022-04-22] MEDS ORDERED: MORPHINE SULFATE 4 MG/ML SYRINGE IV STA (10:13)
[2022-04-22] MEDS ORDERED: ONDANSETRON 4 MG/2 ML VIAL IVP STA (10:13)
[2022-04-22] MEDS ORDERED: SODIUM CHLORIDE 0.9% 1,000 ML IV STA (10:13)
[2022-04-22] MEDS ORDERED: PANTOPRAZOLE 40 MG/10 ML VIAL IVP STA (10:13)
--- NOTE | 2022-04-22 10:24 | ED ---
General Adult HPI - General Chief complaint: Abdominal Pain Stated complaint: abd pain Time Seen by Provider: 04/22/22 10:01 Source: patient, RN notes reviewed, old records reviewed Mode of arrival: ambulatory Limitations: no limitations - History of Present Illness Initial comments: She is a 36-year-old female who presents emergency Department complaining of lower quadrant abdominal pain. It is located suprapubically, left lower quadrant, right lower quadrant. States she normally does have pain there, and surgery includes a hysterectomy done approximately 1 year ago. Has a history of endometriosis, and has a history of chronic pain. However patient did have a recent colonoscopy on the of this month. Patient does have a history of an abdominal wall hernia, and states that this pain is similar to that. However hernia was located higher up. States she is having normal bowel movements for her, with loose stools. No blood. Nurse's nausea but no vomiting. Patient has been ongoing since the colonoscopy. She called her surgeon, Dr. Mayer who instructed to come here for CT abdomen and pelvis with contrast. She denies any fevers. Denies any chest pain, shortness breath. His no other acute platelets this time. Denies any dysuria or hematuria. Denies any vaginal discharge or bleeding that is atypical for her. Does have a history of a hysterectomy. - Related Data Home Medications Medication Instructions Recorded Confirmed Ergocalciferol [Vitamin D2] 50,000 unit PO SA 09/16/18 04/16/22 Hydrocodone/Acetaminophen [[place] 1 tab PO TID PRN 06/03/20 04/16/22 5-325] Albuterol Sulfate [Proair Hfa] 2 puff INHALATION RT-Q6H PRN 07/03/21 04/16/22 Levothyroxine Sodium [Synthroid] 25 mcg PO DAILY 09/21/21 04/16/22 Allergies Allergy/AdvReac Type Severity Reaction Status Date / Time clarithromycin [From Biaxin] AdvReac Severe Diarrhea Verified 04/22/22 09:40 Review of Systems ROS Statement: Those systems with pertinent positive or pertinent negative responses have been documented in the HPI. Review of Systems: CONST: Denies fever EYES: Denies blurry vision ENT: Denies nasal congestion C/V: Denies Chest pain RESP: Denies shortness of breath GI: Endorses abdominal pain : Denies dysuria SKIN: Denies rash. MSK: Denies joint pain. NEURO: Denies headache ROS Other: All systems not noted in ROS Statement are negative. Past Medical History Past Medical History: Asthma, Chest Pain / Angina, Hearing Disorder / Deafness, Hyperlipidemia, Musculoskeletal Disorder, Skin Disorder, Thyroid Disorder Additional Past Medical History / Comment(s): [place] in left ear. DDD, recurrent back pain. Hx stomach ulcers. Sinus Tachycardia. Headaches. Dizziness at times. Numbness in rig Varicose veins in right leg. History of Any Multi-Drug Resistant Organisms: None Reported Past Surgical History: Hernia Repair, Hysterectomy Additional Past Surgical History / Comment(s): 12/31/15 Revision laminectomy discectomy posterior lumbar decompression fusion, transforiminal lumbar interbody fusion L5-S1 with cell saver, NIM cord monitoring. Pyloric surgery , low BACK SURGERIES x2, C-Sections x2. Past Anesthesia/Blood Transfusion Reactions: No Reported Reaction, Family History of Problems w/ Anesthesia Additional Past Anesthesia/Blood Transfusion Reaction / Comment(s): Pt has never recieved blood. Hx hallucinations in grandmother Past Psychological History: Anxiety, Depression Smoking Status: Current every day smoker - Past Family History Father Family Medical History: Coronary Artery Disease (CAD), Myocardial Infarction ([place]) Additional Family Medical History / Comment(s): Father has stents. Blood clots in heart. Mother Family Medical History: No Reported History Additional Family Medical History / Comment(s): Mother has a bad back. General Exam - General Exam Comments Initial Comments: General: Appears in mild to moderate distress secondary to abdominal pain. HEAD: Normal with no signs of head trauma. EYES: PERRLA, EOMI, conjunctiva normal, no discharge. ENT: Hearing grossly intact, normal oropharynx. RESPIRATORY: Clear breath sounds bilaterally. No wheezes, rales, or rhonchi. C/V: Regular rate and rhythm. S1 and S2 auscultated, no edema, peripheral pulses 2+ and intact throughout ABD: Abdomen soft, nondistended. Tender to palpation in the lower quadrants. Mild tenderness midline as well. No skin changes. No obvious palpable hernia at this time. No guarding. No peritoneal signs. No rebound tenderness. EXT: Normal range of motion, no obvious deformity SKIN: No rashes or lesions observed on exposed skin. NEURO: Alert and oriented 4. Limitations: no limitations Course Vital Signs 04/22/22 04/22/22 04/22/22 09:35 10:00 10:30 Temperature 97.5 F L Pulse Rate 82 77 77 Respiratory 18 18 18 Rate Blood Pressure 185/126 142/89 135/84 O2 Sat by Pulse 98 93 L 97 Oximetry 04/22/22 04/22/22 04/22/22 11:00 11:30 12:00 Temperature Pulse Rate 83 66 Respiratory 20 20 18 Rate Blood Pressure 141/88 135/72 116/73 O2 Sat by Pulse 96 96 93 L Oximetry 04/22/22 12:30 Temperature Pulse Rate 68 Respiratory 20 Rate Blood Pressure 139/92 O2 Sat by Pulse 98 Oximetry Medical Decision Making - Medical Decision Making Based on the patient's presentation and physical exam, I'm concerned for acute intra-abdominal process at this time. We'll obtain abdominal laboratory studies. CT abdomen and pelvis will be ordered. She'll be sent directly to with IV fluids, analgesia medications. Patient was in agreement with this plan. Vital signs within acceptable limits at this time. EKG changes obtained in triage and showed no acute cardio pulmonary process. Patient's laboratory studies are within normal limits. Urinalysis is unremarkable. CT abdomen and pelvis are remarkable for no acute process. There is mild splenomegaly which is unchanged from prior CT. Trace amount of free fluid in the pelvis which is likely physiologic. On reevaluation, patient's pain is minimally improved. She is requesting that I speak with Dr. Hoffman addition to Dr. Mayer. I did recheck Dr. Mayer who reviewed the imaging and labs, and wishes the patient follow-up with him outpa rc. Also contacted Dr. Hoffman her WIRE TECHNICIAN who also requested the patient follow up outpatient. We discussed at length her laboratory results, imaging. Patient expressed understanding. I answered all questions that she had. She was in agreement with this plan. Patient already has [place] prescribed by another provider at home. She can also use ibuprofen as needed. Strict return precautions were discussed. . I instructed the patient to follow up with their PCP in the next 1-3 days. I explained that the patient should return to the emergency department if they experience any worsening symptoms. Strict return precautions were discussed with the patient. The patient expressed understanding of these instructions. I answered all questions that the patient had. The patient was discharged home in fair condition with their prescriptions and follow up information. - Lab Data Result diagrams: 04/22/22 10:16 04/22/22 10:16 Lab Results 04/22/22 04/22/22 04/22/22 Range/Units 10:16 10:16 10:16 WBC 10.4 (3.8-10.6) k/uL RBC 5.12 (3.80-5.40) m/uL Hgb 15.4 (11.4-16.0) gm/dL Hct 44.0 (34.0-46.0) % MCV 86.0 (80.0-100.0) fL MCH 30.1 (25.0-35.0) pg MCHC 35.1 (31.0-37.0) g/dL RDW 13.9 (11.5-15.5) % Plt Count 274 (150-450) k/uL MPV 8.4 Neutrophils % 69 % Lymphocytes % 24 % Monocytes % 4 % Eosinophils % 1 % Basophils % 0 % Neutrophils # 7.1 (1.3-7.7) k/uL Lymphocytes # 2.5 (1.0-4.8) k/uL Monocytes # 0.4 (0-1.0) k/uL Eosinophils # 0.1 (0-0.7) k/uL Basophils # 0.0 (0-0.2) k/uL PT 10.2 (9.0-12.0) sec INR 0.9 (<1.2) APTT 24.0 (22.0-30.0) sec Sodium (137-145) mmol/L Potassium (3.5-5.1) mmol/L Chloride (98-107) mmol/L Carbon Dioxide (22-30) mmol/L Anion Gap mmol/L BUN (7-17) mg/dL Creatinine (0.52-1.04) mg/dL Est GFR (CKD-EPI)AfAm (>60 ml/min/1.73 sqM) Est GFR (CKD-EPI)NonAf (>60 ml/min/1.73 sqM) Glucose (74-99) mg/dL Plasma Lactic Acid Luigi (0.7-2.0) mmol/L Calcium (8.4-10.2) mg/dL Total Bilirubin (0.2-1.3) mg/dL AST (14-36) U/L ALT (4-34) U/L Alkaline Phosphatase (38-126) U/L Total Protein (6.3-8.2) g/dL Albumin (3.5-5.0) g/dL Amylase (30-110) U/L Lipase (23-300) U/L Urine Color Yellow Urine Appearance Clear (Clear) Urine pH 6.5 (5.0-8.0) Ur Specific [place] 1.032 (1.001-1.035) Urine Protein Negative (Negative) Urine Glucose (UA) Negative (Negative) Urine Ketones Negative (Negative) Urine Blood Negative (Negative) Urine Nitrite Negative (Negative) Urine Bilirubin Negative (Negative) Urine Urobilinogen <2.0 (<2.0) mg/dL Ur Leukocyte Esterase Negative (Negative) 04/22/22 04/22/22 Range/Units 10:16 10:16 WBC (3.8-10.6) k/uL RBC (3.80-5.40) m/uL Hgb (11.4-16.0) gm/dL Hct (34.0-46.0) % MCV (80.0-100.0) fL MCH (25.0-35.0) pg MCHC (31.0-37.0) g/dL RDW (11.5-15.5) % Plt Count (150-450) k/uL MPV Neutrophils % % Lymphocytes % % Monocytes % % Eosinophils % % Basophils % % Neutrophils # (1.3-7.7) k/uL Lymphocytes # (1.0-4.8) k/uL Monocytes # (0-1.0) k/uL Eosinophils # (0-0.7) k/uL Basophils # (0-0.2) k/uL PT (9.0-12.0) sec INR (<1.2) APTT (22.0-30.0) sec Sodium 139 (137-145) mmol/L Potassium 4.3 (3.5-5.1) mmol/L Chloride 102 (98-107) mmol/L Carbon Dioxide 23 (22-30) mmol/L Anion Gap 14 mmol/L BUN 9 (7-17) mg/dL Creatinine 0.62 (0.52-1.04) mg/dL Est GFR (CKD-EPI)AfAm >90 (>60 ml/min/1.73 sqM) Est GFR (CKD-EPI)NonAf >90 (>60 ml/min/1.73 sqM) Glucose 114 H (74-99) mg/dL Plasma Lactic Acid Luigi 1.2 (0.7-2.0) mmol/L Calcium 9.5 (8.4-10.2) mg/dL Total Bilirubin 0.8 (0.2-1.3) mg/dL AST 25 (14-36) U/L ALT 35 H (4-34) U/L Alkaline Phosphatase 79 (38-126) U/L Total Protein 7.4 (6.3-8.2) g/dL Albumin 4.7 (3.5-5.0) g/dL Amylase 43 (30-110) U/L Lipase 76 (23-300) U/L Urine Color Urine Appearance (Clear) Urine pH (5.0-8.0) Ur Specific [place] (1.001-1.035) Urine Protein (Negative) Urine Glucose (UA) (Negative) Urine Ketones (Negative) Urine Blood (Negative) Urine Nitrite (Negative) Urine Bilirubin (Negative) Urine Urobilinogen (<2.0) mg/dL Ur Leukocyte Esterase (Negative) - EKG Data -: EKG Interpreted by Me EKG Comments: 12-lead Electrocardiogram Interpretation Note EKG was reviewed and interpreted by myself. 12-lead ECG performed at 0948 is interpreted by me as revealing normal sinus rhythm at a rate of 82 beats per minute. Toyah is normal. NC interval is 157 ms, QRS duration is 99 ms, QTc is 368 milliseconds.. There were no ST or T wave abnormalities to suggest myocardial ischemia or injury. R wave progression across the precordium was sati sfactory. By my interpretation this EKG is non-diagnostic for acute ischemia. Disposition Clinical Impression: Abdominal pain of unknown etiology Disposition: HOME SELF-CARE Condition: Fair Instructions (If sedation given, give patient instructions): Abdominal Pain (ED ) Is patient prescribed a controlled substance at d/c from ED?: No Referrals: Celeste Cheng III, MD [Primary Care Provider] - 1-2 days Peter Mayer MD [Medical Doctor] - 1-2 days Damaris Hoffman DO [Doctor of Osteopathic Medicine] - 1-2 days Time of Disposition: 12:30
[2022-04-22 10:25] LABS: Basophils % (A) 0 %; Eosinophils # (A) 0.1 k/uL (0-0.7); Eosinophils % (A) 1 %; HGB 15.4 gm/dL (11.4-16.0); Lymphocytes # (A) 2.5 k/uL (1.0-4.8); Lymphocytes % (A) 24 %; MCH 30.1 pg (25.0-35.0); MCHC 35.1 g/dL (31.0-37.0); Mean Platelet Volume 8.4; Monocytes # (A) 0.4 k/uL (0-1.0); Monocytes % (A) 4 %; Neutrophils # (A) 7.1 k/uL (1.3-7.7); Neutrophils % (A) 69 %; Platelet Count 274 k/uL (150-450); RBC 5.12 m/uL (3.80-5.40); RDW 13.9 % (11.5-15.5); WBC 10.4 k/uL (3.8-10.6)
[2022-04-22 10:33] LABS: INR 0.9 (<1.2); Prothrombin Time 10.2 sec (9.0-12.0)
[2022-04-22 10:36] LABS: ALT 35 U/L (4-34); AST 25 U/L (14-36); African American GFR (CKD) >90 (>60 ml/min/1.73 sqM); Albumin 4.7 g/dL (3.5-5.0); Alkaline Phosphatase 79 U/L (38-126); Amylase 43 U/L (30-110); Anion Gap 14 mmol/L; Blood Urea Nitrogen 9 mg/dL (7-17); Calcium 9.5 mg/dL (8.4-10.2); Carbon Dioxide 23 mmol/L (22-30); Chloride 102 mmol/L (98-107); Glucose 114 mg/dL (74-99); Lipase 76 U/L (23-300); Non-African American GFR(CKD) >90 (>60 ml/min/1.73 sqM); Potassium 4.3 mmol/L (3.5-5.1); Sodium 139 mmol/L (137-145); Total Bilirubin 0.8 mg/dL (0.2-1.3); Total Protein 7.4 g/dL (6.3-8.2)
[2022-04-22 11:09] LABS: Appearance,Urine Clear (Clear); Bilirubin,Urine Negative (Negative); Blood,Urine Negative (Negative); Color,Urine Yellow; Glucose,Urine (UA) Negative (Negative); Ketones,Urine Negative (Negative); Leukocyte Esterase,Urine Negative (Negative); Nitrite,Urine Negative (Negative); PH, Urine 6.5 (5.0-8.0); Protein,Urine Negative (Negative); Specific Gravity,Urine 1.032 (1.001-1.035); Urobilinogen,Urine <2.0 mg/dL (<2.0)
--- NOTE | 2022-04-22 11:19 | CT ---
EXAMINATION TYPE: CT abdomen pelvis w con CT DLP: 1992.9 mGycm, Automated exposure control for dose reduction was used. DATE OF EXAM: 04/22/2022 11:00 AM COMPARISON: CT abdomen pelvis most recent from 09/21/2021. CLINICAL INDICATION:Female, 36 years old with history of BL LQ abdominal pain; Abdominal pain after c olonoscopy on Tuesday TECHNIQUE: Standard CT of the abdomen and pelvis following the administration of 100 cc of Isovue 3 00 IV contrast material. Coronal and sagittal reformats were performed. FINDINGS: LOWER CHEST: Unremarkable ABDOMEN LIVER: Unremarkable GALLBLADDER AND BILE DUCTS: Unremarkable. PANCREAS: Unremarkable. SPLEEN: Mild splenomegaly redemonstrated measuring up to 14.6 cm in CC dimension. ADRENAL GLANDS: Unremarkable. KIDNEYS AND URETERS: No evidence of hydronephrosis or renal calculus. The kidneys enhance symmetrical ly. PELVIS BLADDER: Unremarkable REPRODUCTIVE: The uterus is surgically absent. No suspicious adnexal mass. ABDOMEN & PELVIS STOMACH AND BOWEL: Stomach and duodenum are unremarkable. Submucosal fat deposition within the ascend ing colon which is underdistended. No surrounding fat stranding. The appendix is within normal limits . No evidence of bowel obstruction. PERITONEUM: No evidence of pneumoperitoneum. Trace free fluid redemonstrated in the pelvis. VASCULATURE: No evidence of aortic aneurysm. MUSCULOSKELETAL: No acute osseous abnormalities. No aggressive osseous lesion. Postsurgical changes f rom posterior fusion with bilateral pedicular screws and rods with disc spacer involving L5-S1 with l aminectomy changes. LYMPH NODES: No gross evidence for lymphadenopathy. SOFT TISSUE/ABDOMINAL WALL: Unremarkable IMPRESSION: 1. No acute abdominal/pelvic process. 2. Redemonstration of mild splenomegaly. 3. Trace free fluid in the pelvis which may be physiologic.
[2022-04-22] MEDS ORDERED: MORPHINE SULFATE 4 MG/ML SYRINGE IVP STA (11:53)
[2022-04-22 12:51] VITALS: BP 139/82; PULSE 71; RESP 18; TEMP 98.2
== END 2022-04-22 13:00 | disposition home or self-care (01) ==
LOC: EC 09:28
DX: R10.31 Right lower quadrant pain (principal); R10.32 Left lower quadrant pain; J45.909 Unspecified asthma, uncomplicated; E78.5 Hyperlipidemia, unspecified; F17.200 Nicotine dependence, unspecified, uncomplicated; Z88.1 Allergy status to other antibiotic agents
CPT/HCPCS: 36415; 93005; 80053; 82150; 83605; 83690; 85025; 85610; 85730; 81003; 74177; 99285; 96374; 96375; 96376; 96361; J2270; J2405; C9113; Q9967

== ENCOUNTER 2022-04-28 10:20 | Emergency (ER) | payer OTHER ==
[2022-04-28 10:29] VITALS: BP 154/88; PULSE 87; RESP 16; TEMP 98.4
[2022-04-28] MEDS ORDERED: DEXAMETHASONE SOD PHOSPHATE 10 MG/ML 1 ML VIAL IVP STA (11:05)
[2022-04-28] MEDS ORDERED: KETOROLAC 15 MG/ML 1 ML VIAL IVP STA (11:05)
--- NOTE | 2022-04-28 11:05 | ED ---
ENT HPI - General Chief complaint: ENT Stated complaint: neck swelling Time Seen by Provider: 04/28/22 10:31 Source: patient, RN notes reviewed Mode of arrival: ambulatory Limitations: no limitations - History of Present Illness Initial comments: This is a 36-year-old female who presents to the emergency department for neck pain and swelling. Patient was here on 04/22 for abdominal pain and only had mild neck pain at that time. The workup was primarily related to the abdomen as that was her primary complaint, and no acute irregularities were found. States that the pain and swelling in her neck has since progressed. She is having pain when talking or swallowing. Also states that her face feels very flushed. She does have hypothyroidism but has otherwise never been diagnosed with any autoimmune problems. Denies any family history of autoimmune problems. The pain in the lower abdomen has since resolved, and states that it is now primaril y in the right upper quadrant. Denies any history of gallstones, nausea, or vomiting. Denies any fevers, chills, cough, dyspnea, chest pain, palpitations, nausea, vomiting, diarrhea, back pain, or headaches. - Related Data Home Medications Medication Instructions Recorded Confirmed Hydrocodone/Acetaminophen [[place] 1 tab PO TID PRN 06/03/20 04/28/22 5-325] Albuterol Sulfate [Proair Hfa] 2 puff INHALATION RT-Q6H PRN 07/03/21 04/28/22 RX: Levothyroxine Sodium 25 mcg PO DAILY 09/21/21 04/28/22 [Synthroid] Ergocalciferol [Vitamin D2 (1250 1,250 mcg PO SA 04/28/22 04/28/22 Mcg = 22186 Iu)] Previous Rx's Medication Instructions Recorded Amoxic-Pot Clav 875-125Mg 1 tab PO Q12HR 10 Days #20 tab 04/28/22 [Augmentin 875-125] RX: predniSONE 50 mg PO DAILY 5 Days #5 tablet 04/28/22 Allergies Allergy/AdvReac Type Severity Reaction Status Date / Time clarithromycin [From Biaxin] AdvReac Severe Diarrhea Verified 04/28/22 12:53 Review of Systems ROS Statement: Those systems with pertinent positive or pertinent negative responses have been documented in the HPI. ROS Other: All systems not noted in ROS Statement are negative. Past Medical History Past Medical History: Asthma, Chest Pain / Angina, Hearing Disorder / Deafness, Hyperlipidemia, Musculoskeletal Disorder, Skin Disorder, Thyroid Disorder Additional Past Medical History / Comment(s): [place] in left ear. DDD, recurrent back pain. Hx stomach ulcers. Sinus Tachycardia. Headaches. Dizziness at times. Numbness in rig Varicose veins in right leg. History of Any Multi-Drug Resistant Organisms: None Reported Past Surgical History: Hernia Repair, Hysterectomy Additional Past Surgical History / Comment(s): 12/31/15 Revision laminectomy discectomy posterior lumbar decompression fusion, transforiminal lumbar interbody fusion L5-S1 with cell saver, NIM cord monitoring. Pyloric surgery INFANT, low BACK SURGERIES x2, C-Sections x2. Past Anesthesia/Blood Transfusion Reactions: No Reported Reaction, Family History of Problems w/ Anesthesia Additional Past Anesthesia/Blood Transfusion Reaction / Comment(s): Pt has never recieved blood. Hx hallucinations in grandmother Past Psychological History: Anxiety, Depression Smoking Status: Current every day smoker Past Alcohol Use History: None Reported Past Drug Use History: Marijuana - Past Family History Father Family Medical History: Coronary Artery Disease (CAD), Myocardial Infarction ([place]) Additional Family Medical History / Comment(s): Father has stents. Blood clots in heart. Mother Family Medical History: No Reported History Additional Family Medical History / Comment(s): Mother has a bad back. General Exam Limitations: no limitations General appearance: alert, in distress Head exam: Present: atraumatic, normocephalic, normal inspection Eye exam: Present: normal appearance, PERRL, EOMI. Absent: scleral icterus, conjunctival injection, periorbital swelling ENT exam: Present: TM's normal bilaterally, normal external ear exam, other (Minor posterior pharyngeal erythema. No tonsillar hypertrophy or exudates.) Neck exam: Present: other (Superficial and deep anterior cervical lymphadenopathy. Tenderness to palpation of the neck as well as diffuse swelling.) Respiratory exam: Present: normal lung sounds bilaterally. Absent: respiratory distress, wheezes, rales, rhonchi, stridor Cardiovascular Exam: Present: regular rate, normal rhythm, normal heart sounds. Absent: systolic murmur, diastolic murmur, rubs, gallop, clicks GI/Abdominal exam: Present: soft, tenderness (Right upper quadrant), normal bowel sounds. Absent: distended Neurological exam: Present: alert, oriented X3, CN II-XII intact Psychiatric exam: Present: normal affect, normal mood Skin exam: Present: warm, dry, intact, normal color. Absent: rash Course Vital Signs 04/28/22 10:26 Temperature 98.4 F Pulse Rate 87 Respiratory 16 Rate Blood Pressure 154/88 O2 Sat by Pulse 95 Oximetry Medical Decision Making - Medical Decision Making This is a 36-year-old female who presents to the emergency department for neck p ain and swelling. Lab work including testing for mono and strep throat was obtained. Patient was given IV Decadron and Toradol to help with the pain and swelling. Computed tomography scan of the soft tissue of the neck obtained as well due to the diffuse pain and swelling to look for signs of an infectious process such as an abscess. Lab work was nonactionable. Faulk and strep testing were negative. Computed tomography scan of the neck identified lymphadenopathy and no signs of an infectious process. Ultrasound of the gallbladder obtained as well due to the right upper quadrant pain, which revealed no evidence of gallstones or acute cholecystitis. She was given a dose of Toradol and D ecadron. She did not have much improvement afterwards. She was evaluated alongside ED attending Dr. Samuel, who is also unable to identify a clear cause for her symptoms. Prescription for Augmentin and prednisone provided. She was given follow-up information for ENT to discuss further testing if indicated. Also recommended she follow up with Dr. Haynes's office now that her symptoms are more severe. Return precautions reviewed in depth, the patient is instructed to return to the emergency department with any new, worsening, or concerning symptoms. Patient verbalized understanding. This case was discussed in detail with the attending ED physician. Presentation, findings, and treatment plan discussed in detail as well. - Lab Data Result diagrams: 04/28/22 11:46 04/28/22 11:46 Lab Results 04/28/22 04/28/22 04/28/22 Range/Units 11:46 11:46 11:46 WBC 8.9 (3.8-10.6) k/uL RBC 4.95 (3.80-5.40) m/uL Hgb 15.2 (11.4-16.0) gm/dL Hct 42.5 (34.0-46.0) % MCV 85.9 (80.0-100.0) fL MCH 30.7 (25.0-35.0) pg MCHC 35.7 (31.0-37.0) g/dL RDW 13.8 (11.5-15.5) % Plt Count 274 (150-450) k/uL MPV 8.6 Neutrophils % 69 % Lymphocytes % 25 % Monocytes % 4 % Eosinophils % 1 % Basophils % 1 % Neutrophils # 6.1 (1.3-7.7) k/uL Lymphocytes # 2.2 (1.0-4.8) k/uL Monocytes # 0.3 (0-1.0) k/uL Eosinophils # 0.1 (0-0.7) k/uL Basophils # 0.0 (0-0.2) k/uL ESR 13 (0-20) mm/hr Sodium 137 (137-145) mmol/L Potassium 4.4 (3.5-5.1) mmol/L Chloride 100 (98-107) mmol/L Carbon Dioxide 24 (22-30) mmol/L Anion Gap 13 mmol/L BUN 12 (7-17) mg/dL Creatinine 0.57 (0.52-1.04) mg/dL Est GFR (CKD-EPI)AfAm >90 (>60 ml/min/1.73 sqM) Est GFR (CKD-EPI)NonAf >90 (>60 ml/min/1.73 sqM) Glucose 119 H (74-99) mg/dL Calcium 9.5 (8.4-10.2) mg/dL Total Bilirubin 0.7 (0.2-1.3) mg/dL AST 22 (14-36) U/L ALT 32 (4-34) U/L Alkaline Phosphatase 75 (38-126) U/L C-Reactive Protein 1.2 H (<1.0) mg/dL Total Protein 7.6 (6.3-8.2) g/dL Albumin 4.8 (3.5-5.0) g/dL TSH 3.660 (0.465-4.680) mIU/L Urine Color Urine Appearance (Clear) Urine pH (5.0-8.0) Ur Specific [place] (1.001-1.035) Urine Protein (Negative) Urine Glucose (UA) (Negative) Urine Ketones (Negative) Urine Blood (Negative) Urine Nitrite (Negative) Urine Bilirubin (Negative) Urine Urobilinogen (<2.0) mg/dL Ur Leukocyte Esterase (Negative) Coronavirus (PCR) (Not Detectd) Heterophile Antibody Negative (Negative) Influenza Type A RNA (Not Detectd) Influenza Type B (PCR) (Not Detectd) Group A Strep (PCR) (Not Detectd) 04/28/22 04/28/22 04/28/22 Range/Units 11:46 11:46 11:46 WBC (3.8-10.6) k/uL RBC (3.80-5.40) m/uL Hgb (11.4-16.0) gm/dL Hct (34.0-46.0) % MCV (80.0-100.0) fL MCH (25.0-35.0) pg MCHC (31.0-37.0) g/dL RDW (11.5-15.5) % Plt Count (150-450) k/uL MPV Neutrophils % % Lymphocytes % % Monocytes % % Eosinophils % % Basophils % % Neutrophils # (1.3-7.7) k/uL Lymphocytes # (1.0-4.8) k/uL Monocytes # (0-1.0) k/uL Eosinophils # (0-0.7) k/uL Basophils # (0-0.2) k/uL ESR (0-20) mm/hr Sodium (137-145) mmol/L Potassium (3.5-5.1) mmol/L Chloride (98-107) mmol/L Carbon Dioxide (22-30) mmol/L Anion Gap mmol/L BUN (7-17) mg/dL Creatinine (0.52-1.04) mg/dL Est GFR (CKD-EPI)AfAm (>60 ml/min/1.73 sqM) Est GFR (CKD-EPI)NonAf (>60 ml/min/1.73 sqM) Glucose (74-99) mg/dL Calcium (8.4-10.2) mg/dL Total Bilirubin (0.2-1.3) mg/dL AST (14-36) U/L ALT (4-34) U/L Alkaline Phosphatase (38-126) U/L C-Reactive Protein (<1.0) mg/dL Total Protein (6.3-8.2) g/dL Albumin (3.5-5.0) g/dL TSH (0.465-4.680) mIU/L Urine Color Urine Appearance (Clear) Urine pH (5.0-8.0) Ur Specific [place] (1.001-1.035) Urine Protein (Negative) Urine Glucose (UA) (Negative) Urine Ketones (Negative) Urine Blood (Negative) Urine Nitrite (Negative) Urine Bilirubin (Negative) Urine Urobilinogen (<2.0) mg/dL Ur Leukocyte Esterase (Negative) Coronavirus (PCR) Not Detected (Not Detectd) Heterophile Antibody (Negative) Influenza Type A RNA Not Detected (Not Detectd) Influenza Type B (PCR) Not Detected (Not Detectd) Group A Strep (PCR) NOT DETECTED (Not Detectd) 04/28/22 Range/Units 11:46 WBC (3.8-10.6) k/uL RBC (3.80-5.40) m/uL Hgb (11.4-16.0) gm/dL Hct (34.0-46.0) % MCV (80.0-100.0) fL MCH (25.0-35.0) pg MCHC (31.0-37.0) g/dL RDW (11.5-15.5) % Plt Count (150-450) k/uL MPV Neutrophils % % Lymphocytes % % Monocytes % % Eosinophils % % Basophils % % Neutrophils # (1.3-7.7) k/uL Lymphocytes # (1.0-4.8) k/uL Monocytes # (0-1.0) k/uL Eosinophils # (0-0.7) k/uL Basophils # (0-0.2) k/uL ESR (0-20) mm/hr Sodium (137-145) mmol/L Potassium (3.5-5.1) mmol/L Chloride (98-107) mmol/L Carbon Dioxide (22-30) mmol/L Anion Gap mmol/L BUN (7-17) mg/dL Creatinine (0.52-1.04) mg/dL Est GFR (CKD-EPI)AfAm (>60 ml/min/1.73 sqM) Est GFR (CKD-EPI)NonAf (>60 ml/min/1.73 sqM) Glucose (74-99) mg/dL Calcium (8.4-10.2) mg/dL Total Bilirubin (0.2-1.3) mg/dL AST (14-36) U/L ALT (4-34) U/L Alkaline Phosphatase (38-126) U/L C-Reactive Protein (<1.0) mg/dL Total Protein (6.3-8.2) g/dL Albumin (3.5-5.0) g/dL TSH (0.465-4.680) mIU/L Urine Color Yellow Urine Appearance Clear (Clear) Urine pH 6.5 (5.0-8.0) Ur Specific [place] 1.026 (1.001-1.035) Urine Protein Negative (Negative) Urine Glucose (UA) Negative (Negative) Urine Ketones Negative (Negative) Urine Blood Negative (Negative) Urine Nitrite Negative (Negative) Urine Bilirubin Negative (Negative) Urine Urobilinogen <2.0 (<2.0) mg/dL Ur Leukocyte Esterase Negative (Negative) Coronavirus (PCR) (Not Detectd) Heterophile Antibody (Negative) Influenza Type A RNA (Not Detectd) Influenza Type B (PCR) (Not Detectd) Group A Strep (PCR) (Not Detectd) - Radiology Data Radiology results: report reviewed, image reviewed Disposition Clinical Impression: Lymphadenitis Disposition: HOME SELF-CARE Instructions (If sedation given, give patient instructions): Lymphadenopathy (ED), Lymphangitis (ED) Additional Instructions: Return to the emergency department with any new, worsening, or concerning symptoms. Take the prednisone daily for 5 days and the antibiotic twice daily for [address] Haynes's office for a follow-up and also contact the ear nose and throat provider listed below to become established as a new patient and have further evaluation of ongoing symptoms. Follow up with your primary care provider in 1-2 days. Prescriptions: Amoxic-Pot Clav 875-125Mg [Augmentin 875-125] 1 tab PO Q12HR 10 Days #20 tab RX: predniSONE 50 mg PO DAILY 5 Days #5 tablet Is patient prescribed a controlled substance at d/c from ED?: No Referrals: Celeste Cheng III, MD [Primary Care Provider] - 1-2 days Mark Thibodeaux DO [Doctor of Osteopathic Medicine] - 1-2 days
[2022-04-28] MEDS ORDERED: SODIUM CHLORIDE 0.9% 1,000 ML IV STA (11:56)
[2022-04-28 12:00] LABS: Basophils % (A) 1 %; Eosinophils # (A) 0.1 k/uL (0-0.7); Eosinophils % (A) 1 %; HCT 42.5 % (34.0-46.0); HGB 15.2 gm/dL (11.4-16.0); Lymphocytes # (A) 2.2 k/uL (1.0-4.8); Lymphocytes % (A) 25 %; MCH 30.7 pg (25.0-35.0); MCHC 35.7 g/dL (31.0-37.0); MCV 85.9 fL (80.0-100.0); Mean Platelet Volume 8.6; Monocytes # (A) 0.3 k/uL (0-1.0); Monocytes % (A) 4 %; Neutrophils # (A) 6.1 k/uL (1.3-7.7); Neutrophils % (A) 69 %; Platelet Count 274 k/uL (150-450); RBC 4.95 m/uL (3.80-5.40); RDW 13.8 % (11.5-15.5); WBC 8.9 k/uL (3.8-10.6)
[2022-04-28 12:24] LABS: ALT 32 U/L (4-34); AST 22 U/L (14-36); African American GFR (CKD) >90 (>60 ml/min/1.73 sqM); Albumin 4.8 g/dL (3.5-5.0); Alkaline Phosphatase 75 U/L (38-126); Anion Gap 13 mmol/L; Blood Urea Nitrogen 12 mg/dL (7-17); C Reactive Protein 1.2 mg/dL (<1.0); Calcium 9.5 mg/dL (8.4-10.2); Carbon Dioxide 24 mmol/L (22-30); Chloride 100 mmol/L (98-107); Glucose 119 mg/dL (74-99); Non-African American GFR(CKD) >90 (>60 ml/min/1.73 sqM); Potassium 4.4 mmol/L (3.5-5.1); Sodium 137 mmol/L (137-145); Total Bilirubin 0.7 mg/dL (0.2-1.3); Total Protein 7.6 g/dL (6.3-8.2)
[2022-04-28 12:26] LABS: Appearance,Urine Clear (Clear); Bilirubin,Urine Negative (Negative); Blood,Urine Negative (Negative); Color,Urine Yellow; Glucose,Urine (UA) Negative (Negative); Ketones,Urine Negative (Negative); Leukocyte Esterase,Urine Negative (Negative); Nitrite,Urine Negative (Negative); PH, Urine 6.5 (5.0-8.0); Protein,Urine Negative (Negative); Specific Gravity,Urine 1.026 (1.001-1.035); Urobilinogen,Urine <2.0 mg/dL (<2.0)
--- NOTE | 2022-04-28 12:47 | CT ---
EXAMINATION TYPE: CT soft tissue neck w con DATE OF EXAM: 04/28/2022 COMPARISON: 04/02/2022 HISTORY: LEFT SIDED NECK PAIN CT DLP: 539.1 mGycm CONTRAST: CT scan of the neck is performed with IV Contrast, patient injected with 100 mL of Isovue 300. Contrast enhanced CT of the neck was performed from the skull base through the lung apices. AIRWAY: The supraglottic, glottic, and subglottic portions of the airway appear patent and free of mass. SALIVARY GLANDS: The submandibular and parotid glands are free of mass or inflammatory process. THYROID GLAND: No nodules or masses seen. LYMPH NODES: Right internal jugular chain adenopathy measuring 1.1 cm in short axis. Left internal ju gular chain adenopathy measuring 1 cm in short axis. Several additional bilateral subcentimeter lymph nodes noted. Slight progression from prior study. LUNG APICES: No nodule or mass is seen. OTHER: Vascular structures are patent. No significant degenerative change of the cervical spine. N o abscess seen. IMPRESSION: Mild progression of the lymphadenopathy of the neck and slight enlargement of the carotid space lymph nodes which could be reactive in nature. Correlate clinically.
--- NOTE | 2022-04-28 13:25 | US ---
EXAMINATION TYPE: US gallbladder DATE OF EXAM: 04/28/2022 COMPARISON: NONE CLINICAL HISTORY: RUQ pain. epigastric and right sided pain for months, abd pressure TECHNIQUE: Multiple sonographic images of the right upper quadrant are obtained. FINDINGS: EXAM MEASUREMENTS: Liver Length: 20.7 cm Gallbladder Wall: 0.3 cm CBD: 0.4 cm Right Kidney: 12.0 x 4.9 x 5.6 cm DESIGN MAKER NOTES:large habitus and bowel gas limits exam Pancreas: wnl Liver: enlarged and difficult to penetrate Gallbladder: wnl Evidence for sonographic Lewis's sign: no CBD: wnl Right Kidney: wnl IMPRESSION: 1. Hepatomegaly. Correlate for hepatic steatosis or hepatocellular disease.
[2022-04-28 14:44] LABS: Erythrocyte Sedimentation Rate 13 mm/hr (0-20)
== END 2022-04-28 15:25 | disposition home or self-care (01) ==
LOC: EC 10:20
DX: I88.9 Nonspecific lymphadenitis, unspecified (principal); J45.909 Unspecified asthma, uncomplicated; E78.5 Hyperlipidemia, unspecified; E07.9 Disorder of thyroid, unspecified; F41.9 Anxiety disorder, unspecified; F32.A Depression, unspecified; F17.200 Nicotine dependence, unspecified, uncomplicated; F12.90 Cannabis use, unspecified, uncomplicated; Z88.1 Allergy status to other antibiotic agents; Z79.890 Hormone replacement therapy; Z79.899 Other long term (current) drug therapy; Z20.822 Contact with and (suspected) exposure to COVID-19
CPT/HCPCS: 36415; 87651; 80053; 85652; 84443; 85025; 86140; 86308; 81003; 87502; 87635; 76705; 70491; 99284; J1100; J1885; Q9967

== ENCOUNTER → 2022-05-06 | Outpatient (CLI) | payer OTHER ==
--- NOTE | 2022-05-06 13:14 | CT ---
EXAMINATION TYPE: CT abdomen w con CT DLP: 1510.4 mGycm, Automated exposure control for dose reduction was used. DATE OF EXAM: 05/06/2022 1:06 PM COMPARISON: CT abdomen 04/22/2022. CLINICAL INDICATION:Female, 36 years old with history of K43.9 Abd wall hernia; Epigastric/mid abdomi nal pain. TECHNIQUE: Standard CT of the abdomen following the administration of 70 cc of Isovue [address] material and oral contrast. Coronal and sagittal reformats were performed. FINDINGS: LOWER CHEST: Unremarkable ABDOMEN LIVER: Unremarkable GALLBLADDER AND BILE DUCTS: Unremarkable. PANCREAS: Unremarkable. SPLEEN: Mild splenomegaly redemonstrated measuring 14.5 cm in CC dimension. ADRENAL GLANDS: Unremarkable. KIDNEYS AND URETERS: No evidence of hydronephrosis or renal calculus. The kidneys enhance symmetrical ly without suspicious focal lesion. STOMACH AND BOWEL: Stomach and duodenum are unremarkable. No focal wall thickening or surrounding in flammatory changes. No evidence of bowel obstruction. Enteric contrast is demonstrated within the mid small bowel. PERITONEUM: No evidence of pneumoperitoneum or free fluid. VASCULATURE: No evidence of aortic aneurysm. MUSCULOSKELETAL: No acute osseous abnormalities. No aggressive osseous lesions. Postsurgical changes from posterior fusion with bilateral pedicular screws and rods with disc spacer involving L5-S1 jamar ectomy changes. LYMPH NODES: No gross evidence for lymphadenopathy. SOFT TISSUE/ABDOMINAL WALL: No abdominal wall hernia identified. IMPRESSION: 1. No acute abdominal process. 2. No abdominal wall hernia identified. 3. Mild splenomegaly redemonstrated.
== END | disposition home or self-care (01) ==
LOC: RADCTMAIN 12:07
PROVIDERS: ATTEND Surgery
DX: R16.1 Splenomegaly, not elsewhere classified (principal)
CPT/HCPCS: 74160; Q9967 ×2

== ENCOUNTER 2022-05-18 09:52 | Day surgery (SDC) | payer OTHER ==
[2022-05-18 10:26] VITALS: TEMP 96.9
[2022-05-18] MEDS ORDERED: LACTATED RINGERS 1,000 ML IV ONE ×2 (10:26→11:19)
[2022-05-18 10:34] LABS: Glucose,Whole Blood 148 mg/dL (70-110)
[2022-05-18] MEDS ORDERED: LIDOCAINE 2% INJ 20 MG/ML (2 ML VIAL) ONE (11:00)
[2022-05-18] MEDS ORDERED: PROPOFOL 10 MG/ML 20 ML VIAL IV ONE (11:00)
--- NOTE | 2022-05-18 11:04 | P.GSHP ---
History of Present Illness H&P Date: 05/18/22 Chief Complaint: Abdominal pain 36-year-old female here today for EGD. Patient with complaints of epigastric abdominal pain. Recent findings of anemia. Patient has had some bloody stools as well. Recent colonoscopy showed no definite abnormalities. Recent CAT scan abdomen likewise showed no definite abnormalities to explain her pain. Per patient history of previous stomach ulcers. Also with history of pyloric stenosis as an . Past Medical History Past Medical History: Asthma, Chest Pain / Angina, GERD/Reflux, Hearing Disorder / Deafness, Hyperlipidemia, Musculoskeletal Disorder, Skin Disorder, Thyroid Disorder Additional Past Medical History / Comment(s): [place] in left ear. DDD, recurrent back pain. Hx stomach ulcers. Sinus Tachycardia. Headaches. Dizziness at times. Numbness in right butt cheek to rt toe. rt hand numbness Varicose veins in right leg. elevated red and white cell counts. enlarged lymph nodes on neck and ? axilla. liver and spleen enlarged. psoriasis History of Any Multi-Drug Resistant Organisms: None Reported Past Surgical History: Ablation, Hernia Repair, Hysterectomy Additional Past Surgical History / Comment(s): 12/31/15 Revision laminectomy discectomy posterior lumbar decompression fusion, transforiminal lumbar interbody fusion L5-S1 with cell saver, NIM cord monitoring. Pyloric surgery , low BACK SURGERIES x2, C-Sections x2. incisional hernia repair Past Anesthesia/Blood Transfusion Reactions: No Reported Reaction, Family History of Problems w/ Anesthesia Additional Past Anesthesia/Blood Transfusion Reaction / Comment(s): Pt has never recieved blood. Hx hallucinations in grandmother Smoking Status: Current every day smoker, Former smoker - Past Family History Father Family Medical History: Coronary Artery Disease (CAD), Myocardial Infarction ([place]) Additional Family Medical History / Comment(s): Father has stents. Blood clots in heart. Mother Family Medical History: No Reported History Additional Family Medical History / Comment(s): Mother has a bad back. Medications and Allergies Home Medications Medication Instructions Recorded Confirmed Type Hydrocodone/Acetaminophen [[place] 1 tab PO TID PRN 06/03/20 05/13/22 History 5-325] Albuterol Sulfate [Proair Hfa] 2 puff INHALATION RT-Q6H PRN 07/03/21 05/13/22 History Levothyroxine Sodium [Synthroid] 25 mcg PO DAILY 09/21/21 05/13/22 History Amoxic-Pot Clav 875-125Mg 1 tab PO Q12HR 10 Days #20 tab 04/28/22 05/13/22 Rx [Augmentin 875-125] Ergocalciferol [Vitamin D2 (1250 1,250 mcg PO SA 04/28/22 05/13/22 History Mcg = 88330 Iu)] Nicotine 14Mg/24Hr Patch [Habit[place] 1 patch TRANSDERM DAILY 05/13/22 05/13/22 History 14Mg/24Hr Patch] Pantoprazole [Protonix] 40 mg PO DAILY 05/13/22 05/13/22 History Allergies Allergy/AdvReac Type Severity Reaction Status Date / Time clarithromycin [From Biaxin] AdvReac Severe Diarrhea Verified 05/13/22 16:00 Surgical - Exam Vital Signs Temp Pulse Resp BP Pulse Ox 96.9 F L 82 18 139/73 96 05/18/22 10:23 05/18/22 10:23 05/18/22 10:23 05/18/22 10:23 05/18/22 10:23 Physical exam: General: Well-developed, well-nourished HEENT: Normocephalic, sclerae nonicteric Abdomen: Nontender, nondistended Extremities: No edema Neuro: Alert and oriented Results - Labs Abnormal Lab Results - Last 24 Hours (Table) 05/18/22 Range/Units 10:31 POC Glucose (mg/dL) 148 H (70-110) mg/dL Assessment and Plan (1) Abdominal pain of unknown etiology Narrative/Plan: Will proceed with upper endoscopy Current Visit: No Status: Acute Code(s): R10.9 - UNSPECIFIED ABDOMINAL PAIN SNOMED Code(s): 734345290
--- NOTE | 2022-05-18 11:13 | P.PCN ---
Date of Procedure: 05/18/22 Procedure(s) Performed: Preoperative Dx: Abdominal pain Postoperative Dx: Mild gastritis, small hiatal hernia Procedure: EGD with Bx Anesthesia: Sedation Endoscopist: Dr. Mayer Specimens: Antrum Endoscopic Procedure: The patient was on the endoscopy table in the left decubitus position. The Olympus gastroscope was inserted into the oropharynx and passed under direct visualization to the region of the third portion of the duodenum. From that point the scope was slowly withdrawn inspecting all surface s carefully. There were no neoplastic inflammatory or polypoid lesions throughout the duodenum. The pylorus was widely patent. The stomach was carefully inspected. There was mild gastritis present. A biopsy of the antrum took place to rule out H. pylori. Retroflexion revealed a small sliding hiatal hernia. The esophagus was then carefully examined. There were no neoplastic inflammatory or polypoid lesions throughout the visualized esophagus. The patient was then taken to the recovery room in stable condition per anesthesia guidelines. Recommendations: Await biopsy results. Resume diet.
[2022-05-18] MEDS ORDERED: IV FLUID CONTINUATION 600 ML IV ONE (11:19)
[2022-05-18 11:22] VITALS: RESP 16
[2022-05-18 11:43] VITALS: BP 114/79; PULSE 75
== END 2022-05-18 11:50 | disposition home or self-care (01) ==
LOC: ORWHC2ENDO 09:52
PROVIDERS: ATTEND Surgery
DX: K29.50 Unspecified chronic gastritis without bleeding (principal); K44.9 Diaphragmatic hernia without obstruction or gangrene; J45.909 Unspecified asthma, uncomplicated; R07.9 Chest pain, unspecified; K21.9 Gastro-esophageal reflux disease without esophagitis; H91.90 Unspecified hearing loss, unspecified ear; E78.5 Hyperlipidemia, unspecified; M79.9 Soft tissue disorder, unspecified; L98.9 Disorder of the skin and subcutaneous tissue, unspecified; E07.9 Disorder of thyroid, unspecified; M50.30 Other cervical disc degeneration, unspecified cervical region; R51.9 Headache, unspecified; R00.0 Tachycardia, unspecified; R55 Syncope and collapse; R59.0 Localized enlarged lymph nodes; I83.91 Asymptomatic varicose veins of right lower extremity; L40.9 Psoriasis, unspecified; R16.0 Hepatomegaly, not elsewhere classified; R16.1 Splenomegaly, not elsewhere classified; Z98.890 Other specified postprocedural states; Z90.710 Acquired absence of both cervix and uterus; Z87.891 Personal history of nicotine dependence; Z82.49 Family history of ischemic heart disease and other diseases of the circulatory system; Z79.51 Long term (current) use of inhaled steroids; Z79.899 Other long term (current) drug therapy; Z79.890 Hormone replacement therapy; Z79.1 Long term (current) use of non-steroidal anti-inflammatories (NSAID); Z88.1 Allergy status to other antibiotic agents
CPT/HCPCS: 88305; 43239; J2704; J2001

== ENCOUNTER 2022-10-19 11:57 | Emergency (ER) | payer OTHER ==
[2022-10-19 12:02] VITALS: RESP 20
[2022-10-19] MEDS ORDERED: IPRATROPIUM-ALBUTEROL 3 ML NEB INHALATION STA (12:32)
[2022-10-19] MEDS ORDERED: SODIUM CHLORIDE 0.9% 1,000 ML IV ONE (13:01)
[2022-10-19] MEDS ORDERED: methylPREDNISolone SOD SUCCI 125 MG/2 ML VIAL IV STA (13:01)
[2022-10-19 13:42] LABS: African American GFR (CKD) >90 (>60 ml/min/1.73 sqM); Anion Gap 10 mmol/L; Blood Urea Nitrogen 10 mg/dL (7-17); Calcium 9.1 mg/dL (8.4-10.2); Carbon Dioxide 26 mmol/L (22-30); Chloride 101 mmol/L (98-107); Glucose 225 mg/dL (74-99); Non-African American GFR(CKD) >90 (>60 ml/min/1.73 sqM); Potassium 3.9 mmol/L (3.5-5.1); Sodium 137 mmol/L (137-145)
[2022-10-19 13:46] LABS: Basophils % (A) 0 %; Eosinophils # (A) 0.1 k/uL (0-0.7); Eosinophils % (A) 2 %; HCT 44.2 % (34.0-46.0); HGB 15.6 gm/dL (11.4-16.0); Lymphocytes # (A) 2.2 k/uL (1.0-4.8); Lymphocytes % (A) 35 %; MCH 29.9 pg (25.0-35.0); MCHC 35.3 g/dL (31.0-37.0); MCV 84.7 fL (80.0-100.0); Mean Platelet Volume 7.8; Monocytes # (A) 0.2 k/uL (0-1.0); Monocytes % (A) 4 %; Neutrophils # (A) 3.6 k/uL (1.3-7.7); Neutrophils % (A) 57 %; Platelet Count 220 k/uL (150-450); RBC 5.22 m/uL (3.80-5.40); RDW 14.6 % (11.5-15.5); WBC 6.3 k/uL (3.8-10.6)
--- NOTE | 2022-10-19 14:10 | ED ---
URI HPI - General Chief Complaint: Upper Respiratory Infection Stated Complaint: sob Time Seen by Provider: 10/19/22 12:15 Source: patient, RN notes reviewed Mode of arrival: ambulatory Limitations: no limitations - History of Present Illness Initial Comments: 37-year-old female presents emergency Department chief complaint of cough and cold-like symptoms last 3-4 days. Patient states that initially discolored with old has steadily worsened. States she is feeling dizzy and lightheaded at times. States that she has a productive cough, wheezing. She does have a history of asthma, COPD is that she is a daily smoker. Patient has no abdominal pain denies any dysuria no chest pain. - Related Data Home Medications Medication Instructions Recorded Confirmed Hydrocodone/Acetaminophen [[place] 1 tab PO TID PRN 06/03/20 10/19/22 5-325] Albuterol Sulfate [Proair Hfa] 2 puff INHALATION RT-Q6H PRN 07/03/21 10/19/22 Levothyroxine Sodium [Synthroid] 25 mcg PO DAILY 09/21/21 10/19/22 Ergocalciferol [Vitamin D2 (1250 1,250 mcg PO TH 04/28/22 10/19/22 Mcg = 41387 Iu)] Sertraline [Zoloft] 100 mg PO DAILY 10/19/22 10/19/22 Previous Rx's Medication Instructions Recorded Amoxic-Pot Clav 875-125Mg 1 tab PO Q12HR #20 tab 10/19/22 [Augmentin 875-125] predniSONE 50 mg PO DAILY #5 tab 10/19/22 Allergies Allergy/AdvReac Type Severity Reaction Status Date / Time clarithromycin [From Biaxin] AdvReac Severe Diarrhea Verified 10/19/22 12:46 Review of Systems ROS Statement: Those systems with pertinent positive or pertinent negative responses have been documented in the HPI. ROS Other: All systems not noted in ROS Statement are negative. Past Medical History Past Medical History: Asthma, Chest Pain / Angina, Hearing Disorder / Deafness, Hyperlipidemia, Musculoskeletal Disorder, Pneumonia, Skin Disorder, Thyroid Disorder Additional Past Medical History / Comment(s): [place] in left ear. DDD, recurrent back pain. Hx stomach ulcers. Sinus Tachycardia. Headaches. Dizziness at times. Numbness in rig Varicose veins in right leg. History of Any Multi-Drug Resistant Organisms: None Reported Past Surgical History: Hernia Repair, Hysterectomy Additional Past Surgical History / Comment(s): 12/31/15 Revision laminectomy discectomy posterior lumbar decompression fusion, transforiminal lumbar interbody fusion L5-S1 with cell saver, NIM cord monitoring. Pyloric surgery , low BACK SURGERIES x2, C-Sections x2. Past Anesthesia/Blood Transfusion Reactions: No Reported Reaction, Family History of Problems w/ Anesthesia Additional Past Anesthesia/Blood Transfusion Reaction / Comment(s): Pt has never recieved blood. Hx hallucinations in grandmother Past Psychological History: Anxiety, Depression Smoking Status: Current every day smoker Past Alcohol Use History: None Reported Past Drug Use History: Marijuana - Past Family History Father Family Medical History: Coronary Artery Disease (CAD), Myocardial Infarction ([place]) Additional Family Medical History / Comment(s): Father has stents. Blood clots in heart. Mother Family Medical History: No Reported History Additional Family Medical History / Comment(s): Mother has a bad back. General Exam Limitations: no limitations General appearance: alert, in no apparent distress Head exam: Present: atraumatic, normocephalic, normal inspection Eye exam: Present: normal appearance, PERRL, EOMI. Absent: scleral icterus, conjunctival injection, periorbital swelling ENT exam: Present: mucous membranes moist, TM's normal bilaterally, normal ex ternal ear exam. Absent: normal oropharynx Neck exam: Present: normal inspection, full ROM. Absent: tenderness, meningismus, lymphadenopathy Respiratory exam: Present: wheezes. Absent: normal lung sounds bilaterally, respiratory distress, rales, rhonchi, stridor Cardiovascular Exam: Present: regular rate, normal rhythm, normal heart sounds. Absent: systolic murmur, diastolic murmur, rubs, gallop, clicks GI/Abdominal exam: Present: soft, normal bowel sounds. Absent: distended, tenderness, guarding, rebound, rigid Course Vital Signs 10/19/22 10/19/22 10/19/22 11:59 12:37 12:53 Temperature 98.0 F Pulse Rate 83 84 84 Respiratory 20 Rate Blood Pressure 157/89 O2 Sat by Pulse 96 Oximetry Medical Decision Making - Medical Decision Making Was pt. sent in by a medical professional or institution (, PA, HEAVY EQUIPMENT ENGINE MECHANIC, urgent care, hospital, or prison...) When possible be specific @ -No Did you speak to anyone other than the patient for history (EMS, parent, family, police, friend...)? What history was obtained from this source @ -No Did you review nursing and triage notes (agree or disagree)? Why? @ -I reviewed and agree with nursing and triage notes Were old charts reviewed (outside hosp., previous admission, EMS record, old EKG, old radiological studies, urgent care reports/EKG's, prison records)? Report findings @ -No old charts were reviewed Differential Diagnosis (chest pain, altered mental status, abdominal pain women, abdominal pain men, vaginal bleeding, weakness, fever, dyspnea, syncope, headache, dizziness, GI bleed, back pain, seizure, CVA, palpatations, mental health, musculoskeletal)? @ -Differential Dyspnea: Coronary syndrome, arrhythmia, tamponade, asthma, COPD, pulmonary embolism, pneumonia, pneumothorax, pulmonary effusion, anaphylaxis, diabetic ketoacidosis, flailed chest, pulmonary contusion, diaphragmatic rupture, anemia, neuromuscular , this is not meant to be an all-inclusive list. EKG interpreted by me (3pts min.). @ -None X-rays interpreted by me (1pt min.). @ -X-ray shows interstitial pneumonitis versus acute bronchitis. CT interpreted by me (1pt min.). @ -None done U/S interpreted by me (1pt. min.). @ -None done What testing was considered but not performed or refused? (CT, X-rays, U/S, labs)? Why? @ -None What meds were considered but not given or refused? Why? @ -None Did you discuss the management of the patient with other professionals (professionals i.e. , PA, HEAVY EQUIPMENT ENGINE MECHANIC, lab, RT, psych nurse, psychosocial rehabilitation counselor, pet care associate, teacher, marketing and communications officer, caseworker protective services)? Give summary @ -No Was smoking cessation discussed for >3mins.? @ -No Was critical care preformed (if so, how long)? @ -No Were there social determinants of health that impacted care today? How? (Homel essness, low income, unemployed, alcoholism, drug addiction, transportation, low edu. Level, literacy, decrease access to med. care, [place] [facility], rehab)? @ -No Was there de-escalation of care discussed even if they declined (Discuss DNR or withdrawal of care, Hospice)? DNR status @ -No What co-morbidities impacted this encounter? (DM, HTN, Smoking, COPD, CAD, Cancer, CVA, ARF, Chemo, Hep., AIDS, mental health diagnosis, sleep apnea, morbid obesity)? @ -None Was patient admitted / discharged? Hospital course, mention meds given and route, prescriptions, significant lab abnormalities, going to OR and other pertinent info. @ -Discharge patient x-ray shows pneumonitis changes patient does have COPD is having moderate exacerbation. Patient is improved after Solu-Medrol and breathing treatments. Patient we discharged in stable condition Undiagnosed new problem with uncertain prognosis? @ -No Drug Therapy requiring intensive monitoring for toxicity (Heparin, Nitro, Insulin, Cardizem)? @ -No Were any procedures done? @ -No Diagnosis/symptom? @ -[COPD exacerbation, pneumonitis Acute, or Chronic, or Acute on Chronic? @ -Acute Uncomplicated (without systemic symptoms) or Complicated (systemic symptoms)? @ -Uncomplicated Side effects of treatment? @ -No Exacerbation, Progression, or Severe Exacerbation? @ -Exacerbation Poses a threat to life or bodily function? How? (Chest pain, [place], [place], pneumonia, PE, COPD, DKA, ARF, appy, cholecystitis, CVA, Diverticulitis, Homicidal, Suicidal, threat to staff... and all critical care pts) @ -No - Lab Data Result diagrams: 10/19/22 13:08 10/19/22 13:08 Lab Results 10/19/22 10/19/22 10/19/22 Range/Units 12:31 13:08 13:08 WBC 6.3 (3.8-10.6) k/uL RBC 5.22 (3.80-5.40) m/uL Hgb 15.6 (11.4-16.0) gm/dL Hct 44.2 (34.0-46.0) % MCV 84.7 (80.0-100.0) fL MCH 29.9 (25.0-35.0) pg MCHC 35.3 (31.0-37.0) g/dL RDW 14.6 (11.5-15.5) % Plt Count 220 (150-450) k/uL MPV 7.8 Neutrophils % 57 % Lymphocytes % 35 % Monocytes % 4 % Eosinophils % 2 % Basophils % 0 % Neutrophils # 3.6 (1.3-7.7) k/uL Lymphocytes # 2.2 (1.0-4.8) k/uL Monocytes # 0.2 (0-1.0) k/uL Eosinophils # 0.1 (0-0.7) k/uL Basophils # 0.0 (0-0.2) k/uL Sodium 137 (137-145) mmol/L Potassium 3.9 (3.5-5.1) mmol/L Chloride 101 (98-107) mmol/L Carbon Dioxide 26 (22-30) mmol/L Anion Gap 10 mmol/L BUN 10 (7-17) mg/dL Creatinine 0.55 (0.52-1.04) mg/dL Est GFR (CKD-EPI)AfAm >90 (>60 ml/min/1.73 sqM) Est GFR (CKD-EPI)NonAf >90 (>60 ml/min/1.73 sqM) Glucose 225 H (74-99) mg/dL Calcium 9.1 (8.4-10.2) mg/dL Influenza Type A (PCR) Not Detected (Not Detectd) Influenza Type B (PCR) Not Detected (Not Detectd) RSV (PCR) Not Detected (Not Detectd) SARS-CoV-2 (PCR) Not Detected (Not Detectd) Disposition Clinical Impression: Pneumonitis, COPD exacerbation Disposition: HOME SELF-CARE Condition: Stable Instructions (If sedation given, give patient instructions): Upper Respiratory Infection (ED) Additional Instructions: Please return to the Emergency Department if symptoms worsen or any other concerns. Prescriptions: Amoxic-Pot Clav 875-125Mg [Augmentin 875-125] 1 tab PO Q12HR #20 tab predniSONE 50 mg PO DAILY #5 tab Is patient prescribed a controlled substance at d/c from ED?: No Referrals: Celeste Cheng III, MD [Primary Care Provider] - 1-2 days Time of Disposition: 14:18
--- NOTE | 2022-10-19 14:11 | XR ---
EXAMINATION TYPE: XR chest 2V DATE OF EXAM: 10/19/2022 COMPARISON: NONE TECHNIQUE: PA and lateral views submitted. HISTORY: Cough FINDINGS: The lungs are clear and there is no pneumothorax, pleural effusion, or focal pneumonia. Heart size normal and no overt failure. Mildly coarsened central interstitial markings can be associated with a mild bronchitis or interstitial pneumonitis. IMPRESSION: 1. Mildly coarsened central interstitial markings can be associated with a mild bronchitis or interst itial pneumonitis.
[2022-10-19 14:36] VITALS: BP 119/56; PULSE 88; TEMP 98.1
== END 2022-10-19 14:35 | disposition home or self-care (01) ==
LOC: EC 11:57
DX: J44.1 Chronic obstructive pulmonary disease with (acute) exacerbation (principal); J18.9 Pneumonia, unspecified organism; E07.9 Disorder of thyroid, unspecified; F32.A Depression, unspecified; F41.9 Anxiety disorder, unspecified; F17.200 Nicotine dependence, unspecified, uncomplicated; F12.90 Cannabis use, unspecified, uncomplicated; Z88.1 Allergy status to other antibiotic agents; Z79.890 Hormone replacement therapy; Z79.899 Other long term (current) drug therapy; Z20.822 Contact with and (suspected) exposure to COVID-19
CPT/HCPCS: 36415; 94640; 80048; 85025; 87636; 71046; 99285; 96374; 96361; J2930

== ENCOUNTER 2022-11-10 07:33 | Day surgery (SDC) | payer OTHER ==
[2022-11-05 14:15] VITALS: BMI 39.1
--- NOTE | 2022-11-09 09:15 | P.HPOR ---
History of Present Illness H&P Date: 11/09/22 Subjective: This is a 37 year old female that presents today for initial evaluation regarding an 8 month history of progressively worsening bilateral hand numbness, tingling and weakness. She states that the right side is more severe than the left, and she now has constant numbness in the thumb, index and middle fingers. She has had a carpal tunnel steroid injection by a neurologist. She only had roughly one day of relief from this and she is also tried bracing at nighttime with minimal relief. She denies any injury or previous surgery on either hand in the past. She has recently noticed weakness in the hand now and often wakes in the night with electrical shocks in her finger tips. Physical Examination: RUE: AIN/PIN/Radial/Ulnar/Median motor intact. Radial/Ulnar/Median SILT. 2+/4 Radial/Ulnar pulses palpated. 5/5 APB, 5/5 FDI. Negative Finkelsteins, negative CMC grind, positive Durkan's compression. Impression: 1.) Right carpal tunnel syndrome Plan: Diagnosis and treatment options were discussed with the patient. she has failed conservative treatment for her bilateral carpal tunnel syndrome with progressively worsening symptoms. I recommend a right endoscopic vs open carpal tunnel release. Risks and benefits of surgery including bleeding, infection, damage to surrounding tissue, need for further surgery, possible need to convert to open procedure, residual numbness were discussed and the patient wished to go forward with surgery. The patient was agreeable with this plan. -Roger Townsend DO Orthopedic Hand/Upper Extremity Surgeon Past Medical History Past Medical History: Asthma, Chest Pain / Angina, Diabetes Mellitus, GERD/Reflux, Hearing Disorder / Deafness, Hyperlipidemia, Musculoskeletal Disorder, Skin Disorder, Thyroid Disorder Additional Past Medical History / Comment(s): Diet Controlled Diabetes. [place] in left ear. Degenerative Disc Disease, recurrent back and right leg pain, nerve damage/numbness to right leg, limps. Hx stomach ulcers. Sinus Tachycardia. Headaches. Dizziness at times. Right leg varicose veins. Psoriasis. History of Any Multi-Drug Resistant Organisms: None Reported Past Surgical History: Back Surgery, Section, Hernia Repair, Hysterectomy Additional Past Surgical History / Comment(s): Laminectomy with revision, discectomy with artificial disc placed, posterior lumbar decompression/fusion L5-S1 with cell saver, pyloric surgery as an , section X2, EGD. Past Anesthesia/Blood Transfusion Reactions: No Reported Reaction Additional Past Anesthesia/Blood Transfusion Reaction / Comment(s): Has never recieved blood. Cries after anesthesia sometimes. Hx hallucinations in grandmother. Past Psychological History: Anxiety, Depression Smoking Status: Former smoker Past Alcohol Use History: None Reported Additional Past Alcohol Use History / Comment(s): Started smoking at age 12, 1 ppd, quit 10/28/22. Past Drug Use History: Marijuana Additional Drug Use History / Comment(s): Marijuana use daily. Aware no use 24 hrs prior to procedure. - Past Family History Father Family Medical History: Coronary Artery Disease (CAD), Myocardial Infarction ([place]) Additional Family Medical History / Comment(s): Father has stents. Blood clots in heart. Abdominal aneurysm. Mother Family Medical History: Deep Vein Thrombosis (DVT) Additional Family Medical History / Comment(s): Mother has a bad back. Abdominal aneurysm. Medications and Allergies Home Medications Medication Instructions Recorded Confirmed Type Hydrocodone/Acetaminophen [[place] 1 tab PO TID PRN 06/03/20 11/05/22 History 5-325] Albuterol Sulfate [Proair Hfa] 2 puff INHALATION RT-Q6H PRN 07/03/21 11/05/22 History Levothyroxine Sodium [Synthroid] 25 mcg PO QAM 09/21/21 11/05/22 History Ergocalciferol [Vitamin D2 (1250 1,250 mcg PO TH 04/28/22 11/05/22 History Mcg = 65079 Iu)] Sertraline [Zoloft] 100 mg PO QAM 10/19/22 11/05/22 History Pantoprazole [Protonix] 40 mg PO QAM 11/05/22 11/05/22 History Allergies Allergy/AdvReac Type Severity Reaction Status Date / Time clarithromycin [From Biaxin] AdvReac Severe Diarrhea Verified 11/05/22 13:54 Physical Examination Osteopathic Statement: *. No significant issues noted on an osteopathic structural exam other than those noted in the History and Physical/Consult.
[~2022-11-10 07:33] MED LIST changes: -LACTATED RINGERS 1,000 ML IV SCH; -LIDOCAINE 1% (10MG/ML) FOR IV START INTRADERMA PRN; +Pre Op ABX Message 1 EACH MISC MISCELLANE ONE
[2022-11-10] MEDS ORDERED: HYDROmorphone 0.5 MG/0.5 ML SYRINGE IVP PRN (07:45)
[2022-11-10] MEDS ORDERED: LIDOCAINE 1% (10MG/ML) FOR IV START INTRADERMA PRN (07:45)
[2022-11-10] MEDS ORDERED: LACTATED RINGERS 1,000 ML IV SCH (07:45)
[2022-11-10] MEDS ORDERED: ONDANSETRON 4 MG/2 ML VIAL IVP PRN (07:45)
[2022-11-10 07:54] VITALS: TEMP 97.3
[2022-11-10] MEDS ORDERED: LACTATED RINGERS 1,000 ML IV ONE (07:54)
[2022-11-10 08:04] LABS: Glucose,Whole Blood 241 mg/dL (70-110)
[2022-11-10] MEDS ORDERED: MIDAZOLAM 2 MG/2 ML VIAL IVP ONE (08:16)
[2022-11-10] MEDS ORDERED: fentaNYL (PF) 50 MCG/ML 2 ML AMP ONE (08:17)
[2022-11-10] MEDS ORDERED: KETAMINE 10 MG/ML 20 ML VIAL ONE (08:17)
[2022-11-10] MEDS ORDERED: PROPOFOL 10 MG/ML 20 ML VIAL IV ONE (08:17)
[2022-11-10] MEDS ORDERED: MIDAZOLAM 2 MG/2 ML VIAL ONE (08:17)
[2022-11-10] MEDS ORDERED: LIDOCAINE 2% (PF) 20 MG/ML 10 ML AMP SQ ONE (08:31)
[2022-11-10] MEDS ORDERED: BUPIVACAINE (PF) 0.5% 30 ML VIAL SQ ONE (08:31)
--- NOTE | 2022-11-10 08:52 | P.OP ---
Date of Procedure: 11/10/22 Preoperative Diagnosis: Right carpal tunnel syndrome Postoperative Diagnosis: Right carpal tunnel syndrome Procedure(s) Performed: Right endoscopic carpal tunnel release Anesthesia: MAC Surgeon: Roger Townsend Manager Financial #1: Hollis Saenz Estimated Blood Loss (ml): 0 Pathology: none sent Condition: stable Disposition: PACU Description of Procedure: This is a 37 year old female who presents today for a right endoscopic carpal tunnel release after having failed conservative treatment in the past. Risks and benefits of surgery were discussed with the patient including bleeding, damage to surrounding tissue, infection, need to convert to open procedure, need for further surgery as well as risks of anesthesia including pulmonary embolism and even and the patient wished to proceed with surgical intervention. The patients was seen in the pre-operative area by myself. Consent and H&P were completed and updated. The correct extremity was marked in the pre-operative area by myself and all other questions were answered. Operative Narrative: The patient was brought to the operating room by the department of anesthesia. They remained on the portable stretcher and a rolling hand table was brought to the side of the operative extremity. Pre-operative time out was performed indicating the correct patient, procedure and laterality. All in the room agreed. The patient was then drifted off to sleep by the department of a nesthesia. MAC anesthesia was utilized and a 50:50 mixture of 1% Lidocaine and 0.5% bupivacaine was injected into the subcutaneous tissues of the palmar skin, 10ccs total. A nonsterile tourniquet was then applied to the operative extremity and the right upper extremity was then prepped and draped in normal sterile fashion. The operative extremity was the exsanguinated with an esmarch bandage and the tourniquet was inflated to 250mmHg. 15 blade scalpel was utilized to make a transverse incision on the palmar skin just ulnar to the palmaris longus tendon at the level of the distal wrist cre ase. Ragnell retractor was then placed radially and blunt dissection was performed to reveal the distal forearm fascia. This was lifted with fine Octaviano pick ups and Littler tenotomy scissors were then used to open the forearm fascia transversely and a double skin hook was then placed. Hamate finder was placed into the carpal tunnel and then sequential sized dilators were inserted followed by the synovial elevator to separate the flexor tenosynovium from the undersurface of the transverse carpal ligament and a washboard texture was felt. The MicroAire endoscopic carpal tunnel release system gun was the then inserted into the carpal tunnel hugging the deep portion of the transverse carpal ligament in line with the base of the ring finger. Transverse fibers of the ligament were directly visualized. Pressure was applied on the palm to reveal the distal extent of the transverse carpal ligament. The blade was then deployed and the distal half of the transverse carpal ligament was released. The scope was then brought distal again and remaining transverse fibers were incised with the blade. The proximal half of the transverse carpal ligament was then divided and again the scope was advanced distal and remaining transverse fibers were incised with the blade. The radial and ulnar leaflets were directly visualized and mobile consistent with complete release. Tenotomy scissors were then utilized to release the remaining distal forearm fascia under direct visualization taking care to preserve the palmar cutaneous branch of the median nerve. Skin closure was performed with interrupted 4-0 Monocryl suture followed by Mastisol and steri strips. Sterile dressing was applied consisting of adaptic, 4x4s, Webril, and an keshawn bandage. Tourniquet was let down and the hand immediately was well perfused. The patient was then woken by the department of anesthesia and transferred to PACU in stable condition. Hollis THOMAS was present for the case in its entirety and assisted in major portions of the case and protection of vital neurovascular structures. Roger Townsend D.O. Orthopedic Hand/Upper Extremity Surgeon
[2022-11-10 09:34] VITALS: RESP 16
[2022-11-10 09:43] LABS: Glucose,Whole Blood 217 mg/dL (70-110)
[2022-11-10 10:04] VITALS: BP 121/81; PULSE 69
== END 2022-11-10 10:10 | disposition home or self-care (01) ==
LOC: OR 07:33
PROVIDERS: ATTEND Orthopaedic Surgery Hand Surgery
DX: G56.01 Carpal tunnel syndrome, right upper limb (principal); J45.909 Unspecified asthma, uncomplicated; E11.9 Type 2 diabetes mellitus without complications; E03.9 Hypothyroidism, unspecified; E78.5 Hyperlipidemia, unspecified; F41.9 Anxiety disorder, unspecified; F32.A Depression, unspecified; F12.90 Cannabis use, unspecified, uncomplicated; Z87.891 Personal history of nicotine dependence; Z87.39 Personal history of other diseases of the musculoskeletal system and connective tissue; H91.92 Unspecified hearing loss, left ear; Z87.19 Personal history of other diseases of the digestive system; L40.9 Psoriasis, unspecified; Z79.51 Long term (current) use of inhaled steroids; Z79.890 Hormone replacement therapy; Z79.899 Other long term (current) drug therapy; Z88.1 Allergy status to other antibiotic agents
CPT/HCPCS: 29848; J2250; J2001; J2405; J3010; J2704

== ENCOUNTER 2022-11-24 07:34 | Day surgery (SDC) | payer OTHER ==
[2022-11-18 15:33] VITALS: BMI 39.2
--- NOTE | 2022-11-23 09:15 | P.HPOR ---
History of Present Illness H&P Date: 11/23/22 Subjective: This is a 37 year old female that presents today for initial evaluation regarding an 8 month history of progressively worsening left hand numbness, tingling and weakness. She now has constant numbness in the thumb, index and middle fingers. She has had a carpal tunnel steroid injection by a neurologist. She only had roughly one day of relief from this and she is also tried bracing at nighttime with minimal relief. She denies any injury or previous surgery on either hand in the past. She has recently noticed weakness in the hand now and often wakes in the night with electrical shocks in her finger tips. Physical Examination: LUE: AIN/PIN/Radial/Ulnar/Median motor intact. Radial/Ulnar/Median SILT. 2+/4 Radial/Ulnar pulses palpated. 5/5 APB, 5/5 FDI. Negative Finkelsteins, negative CMC grind, positive Durkan's compression. Impression: 1.) Left carpal tunnel syndrome Plan: Diagnosis and treatment options were discussed with the patient. she has failed conservative treatment for her bilateral carpal tunnel syndrome with progressively worsening symptoms. I recommend a left endoscopic vs open carpal tunnel release. Risks and benefits of surgery including bleeding, infection, damage to surrounding tissue, need for further surgery, possible need to convert to open procedure, residual numbness were discussed and the patient wished to go forward with surgery. The patient was agreeable with this plan. -Roger Townsend DO Past Medical History Past Medical History: Asthma, Chest Pain / Angina, Diabetes Mellitus, GERD/Reflux, Hearing Disorder / Deafness, Hyperlipidemia, Musculoskeletal Disorder, Skin Disorder, Thyroid Disorder Additional Past Medical History / Comment(s): Diet Controlled Diabetes. [place] in left ear. Degenerative Disc Disease, recurrent back and right leg pain, nerve damage/numbness to right leg, limps. Hx stomach ulcers. Sinus Tachycardia. Headaches. Dizziness at times. Varicose veins in right leg. Psoriasis. History of Any Multi-Drug Resistant Organisms: None Reported Past Surgical History: Back Surgery, Section, Hernia Repair, Hysterectomy Additional Past Surgical History / Comment(s): Laminectomy with revision, discectomy with artificial disc placed, posterior lumbar decompression/fusion L5-S1 with cell saver, pyloric surgery as an , section X2. Past Anesthesia/Blood Transfusion Reactions: No Reported Reaction Additional Past Anesthesia/Blood Transfusion Reaction / Comment(s): Pt has never recieved blood. Cries after anesthesia sometimes. Hx hallucinations in grandmother. Past Psychological History: Anxiety, Depression Smoking Status: Former smoker Past Alcohol Use History: None Reported Additional Past Alcohol Use History / Comment(s): Started smoking at age 12, 1 ppd, quit 10/28/22. Past Drug Use History: Marijuana Additional Drug Use History / Comment(s): Marijuana use daily. Aware no use 24 hrs prior to procedure. - Past Family History Father Family Medical History: Coronary Artery Disease (CAD), Myocardial Infarction ([place]) Additional Family Medical History / Comment(s): Father has stents. Blood clots in heart. Abdominal aneurysm. Mother Family Medical History: Deep Vein Thrombosis (DVT) Additional Family Medical History / Comment(s): Mother has a bad back. Abdominal aneurysm. Medications and Allergies Home Medications Medication Instructions Recorded Confirmed Type Hydrocodone/Acetaminophen [[place] 1 tab PO TID PRN 06/03/20 11/18/22 History 5-325] Albuterol Sulfate [Proair Hfa] 2 puff INHALATION Q6H PRN 07/03/21 11/18/22 History Levothyroxine Sodium [Synthroid] 25 mcg PO QAM 09/21/21 11/18/22 History Ergocalciferol [Vitamin D2 (1250 1,250 mcg PO TH 04/28/22 11/18/22 History Mcg = 58000 Iu)] Sertraline [Zoloft] 100 mg PO QAM 10/19/22 11/18/22 History Pantoprazole [Protonix] 40 mg PO QAM 11/05/22 11/18/22 History Allergies Allergy/AdvReac Type Severity Reaction Status Date / Time clarithromycin [From Biaxin] AdvReac Severe Diarrhea Verified 11/18/22 15:11 Physical Examination Osteopathic Statement: *. No significant issues noted on an osteopathic structural exam other than those noted in the History and Physical/Consult.
[~2022-11-24 07:34] MED LIST changes: +DEXAMETHASONE SOD PHOSPHATE 4 MG/ML 1 ML VIAL IV ONE; +HYDROmorphone 0.5 MG/0.5 ML SYRINGE IVP PRN; +LACTATED RINGERS 1,000 ML IV SCH; +LIDOCAINE 1% (10MG/ML) FOR IV START INTRADERMA PRN; +ONDANSETRON 4 MG/2 ML VIAL IVP ONE; +SCOPOLAMINE 1 MG/72 HR PATCH TRANSDERM ONE; +droPERidol 5 MG/2 ML VIAL IVP ONE
[2022-11-24 08:06] LABS: Glucose,Whole Blood 188 mg/dL (70-110)
[2022-11-24 08:10] VITALS: RESP 16; TEMP 98
[2022-11-24] MEDS ORDERED: MIDAZOLAM 2 MG/2 ML VIAL ONE (08:27)
[2022-11-24] MEDS ORDERED: KETAMINE 10 MG/ML 20 ML VIAL ONE (08:27)
[2022-11-24] MEDS ORDERED: KETOROLAC 15 MG/ML 1 ML VIAL ONE (08:27)
[2022-11-24] MEDS ORDERED: GLYCOPYRROLATE 0.2 MG/ML 2 ML VIAL ONE (08:27)
[2022-11-24] MEDS ORDERED: LIDOCAINE 2% INJ 20 MG/ML (2 ML VIAL) ONE (08:27)
[2022-11-24] MEDS ORDERED: PROPOFOL 10 MG/ML 20 ML VIAL IV ONE (08:27)
[2022-11-24] MEDS ORDERED: fentaNYL (PF) 50 MCG/ML 2 ML AMP ONE (08:27)
[2022-11-24] MEDS ORDERED: LIDOCAINE 1% INJ 10MG/ML (20 ML MDV) SQ ONE (08:41)
[2022-11-24] MEDS ORDERED: BUPIVACAINE (PF) 0.5% 30 ML VIAL SQ ONE (08:41)
--- NOTE | 2022-11-24 08:54 | P.OP ---
Date of Procedure: 11/23/22 Preoperative Diagnosis: Left carpal tunnel syndrome Postoperative Diagnosis: Left carpal tunnel syndrome Procedure(s) Performed: Left endoscopic carpal tunnel release Anesthesia: MAC Surgeon: Roger Townsend Stock Preparation Operator #1: Hollis Saenz Estimated Blood Loss (ml): 0 Pathology: none sent Condition: stable Disposition: PACU Description of Procedure: This is a 37 year old female who presents today for a left endoscopic carpal tunnel release after having failed conservative treatment in the past. Risks and benefits of surgery were discussed with the patient including bleeding, damage to surrounding tissue, infection, need to convert to open procedure, need for further surgery as well as risks of anesthesia including pulmonary embolism and even and the patient wished to proceed with surgical intervention. The patients was seen in the pre-operative area by myself. Consent and H&P were completed and updated. The correct extremity was marked in the pre-operative area by myself and all other questions were answered. Operative Narrative: The patient was brought to the operating room by the department of anesthesia. They remained on the portable stretcher and a rolling hand table was brought to the side of the operative extremity. Pre-operative time out was performed indicating the correct patient, procedure and laterality. All in the room agreed. The patient was then drifted off to sleep by the department of anesthesia. MAC anesthesia was utilized and a 50:50 mixture of 1% Lidocaine and 0.5% bupivacaine was injected into the subcutaneous tissues of the palmar skin, 8ccs total. A nonsterile tourniquet was then applied to the operative extremity and the left upper extremity was then prepped and draped in normal sterile fashion. The operative extremity was the exsanguinated with an esmarch bandage and the tourniquet was inflated to 250mmHg. 15 blade scalpel was utilized to make a transverse incision on the palmar skin just ulnar to the palmaris longus tendon at the level of the distal wrist crease. Ragnell retractor was then placed radially and blunt dissection was performed to reveal the distal forearm fascia. This was lifted with fine Octaviano pick ups and Littler tenotomy scissors were then used to open the forearm fascia transversely and a double skin hook was then placed. Hamate finder was placed into the carpal tunnel and then sequential sized dilators were inserted followed by the synovial elevator to separate the flexor tenosynovium from the undersurface of the transverse carpal ligament and a washboard texture was felt. The MicroAire endoscopic carpal tunnel release system gun was the then inserted into the carpal tunnel hugging the deep portion of the transverse carpal ligament in line with the base of the ring finger. Transverse fibers of the ligament were directly visualized. Pressure was applied on the palm to reveal the distal extent of the transverse carpal ligament. The blade was then deployed and the distal half of the transverse carpal ligament was released. The scope was then brought distal again and remaining transverse fibers were incised with the blade. The proximal half of the transverse carpal ligament was then divided and again the scope was advanced distal and remaining transverse fibers were incised with the blade. The radial and ulnar leaflets were directly visualized and mobile consistent with complete release. Tenotomy scissors were then utilize d to release the remaining distal forearm fascia under direct visualization taking care to preserve the palmar cutaneous branch of the median nerve. Skin closure was performed with interrupted 4-0 Monocryl suture followed by Mastisol and steri strips. Sterile dressing was applied consisting of adaptic, 4x4s, Webril, and an keshawn bandage. Tourniquet was let down and the hand immediately was well perfused. The patient was then woken by the department of anesthesia and transferred to PACU in stable condition. Hollis THOMAS was present for the case in its entirety and assisted in major portions of the case and protection of vital neurovascular structures. Roger Townsend D.O. Orthopedic Hand/Upper Extremity Surgeon
[2022-11-24 09:11] VITALS: BP 133/79; PULSE 78
== END 2022-11-24 09:44 | disposition home or self-care (01) ==
LOC: OR 07:34
PROVIDERS: ATTEND Orthopaedic Surgery Hand Surgery
DX: G56.02 Carpal tunnel syndrome, left upper limb (principal); J45.909 Unspecified asthma, uncomplicated; E11.9 Type 2 diabetes mellitus without complications; E78.5 Hyperlipidemia, unspecified; K21.9 Gastro-esophageal reflux disease without esophagitis; F12.90 Cannabis use, unspecified, uncomplicated; E03.9 Hypothyroidism, unspecified; F41.9 Anxiety disorder, unspecified; F32.A Depression, unspecified; L40.9 Psoriasis, unspecified; E66.9 Obesity, unspecified; Z68.39 Body mass index [BMI] 39.0-39.9, adult; Z87.891 Personal history of nicotine dependence; Z87.19 Personal history of other diseases of the digestive system; Z79.51 Long term (current) use of inhaled steroids; Z79.899 Other long term (current) drug therapy; Z79.890 Hormone replacement therapy; Z88.1 Allergy status to other antibiotic agents
CPT/HCPCS: 29848; J2250; J1100; J2405; J2001 ×2; J3010; J1885; J2704

== ENCOUNTER 2023-03-28 10:24 | Emergency (ER) | payer OTHER ==
[2023-03-28 10:39] VITALS: BP 152/85; PULSE 88; RESP 20; TEMP 98.2
--- NOTE | 2023-03-28 11:02 | XR ---
EXAMINATION TYPE: XR foot complete LT DATE OF EXAM: 03/28/2023 COMPARISON: NONE HISTORY: Pain TECHNIQUE: Three views are submitted. FINDINGS: Small calcaneal spur. The osseous structures are intact. There is no acute fracture or dislocation. Joint spaces are p reserved. IMPRESSION: 1. No acute fracture or dislocation. If symptoms persist, follow-up exam in 7 to 10 days could be ob tained.
--- NOTE | 2023-03-28 11:06 | ED ---
General Adult HPI - General Chief complaint: Extremity Injury, Lower Stated complaint: Left toe injury Time Seen by Provider: 03/28/23 10:34 Source: patient, RN notes reviewed, old records reviewed Mode of arrival: ambulatory Limitations: no limitations - History of Present Illness Initial comments: 37-year-old female resents for evaluation of left foot injury. Patient stopped her fourth and fifth toes on the left side yesterday. He's had a throbbing pain and difficulty in relating secondary to pain. No other injuries. - Related Data Home Medications Medication Instructions Recorded Confirmed Hydrocodone/Acetaminophen [[place] 1 tab PO TID PRN 06/03/20 11/24/22 5-325] Albuterol Sulfate [Proair Hfa] 2 puff INHALATION Q6H PRN 07/03/21 11/24/22 Levothyroxine Sodium [Synthroid] 25 mcg PO QAM 09/21/21 11/24/22 Ergocalciferol [Vitamin D2 (1250 1,250 mcg PO TH 04/28/22 11/24/22 Mcg = 02707 Iu)] Sertraline [Zoloft] 100 mg PO QAM 10/19/22 11/24/22 Pantoprazole [Protonix] 40 mg PO QAM 11/05/22 11/24/22 Allergies Allergy/AdvReac Type Severity Reaction Status Date / Time clarithromycin [From Biaxin] AdvReac Severe Diarrhea Verified 03/28/23 10:30 Review of Systems ROS Statement: Those systems with pertinent positive or pertinent negative responses have been documented in the HPI. ROS Other: All systems not noted in ROS Statement are negative. Past Medical History Past Medical History: Asthma, Chest Pain / Angina, Hearing Disorder / Deafness, Hyperlipidemia, Musculoskeletal Disorder, Pneumonia, Skin Disorder, Thyroid Disorder Additional Past Medical History / Comment(s): [place] in left ear. DDD, recurrent back pain. Hx stomach ulcers. Sinus Tachycardia. Headaches. Dizziness at times. Numbness in rig Varicose veins in right leg. History of Any Multi-Drug Resistant Organisms: None Reported Past Surgical History: Hernia Repair, Hysterectomy Additional Past Surgical History / Comment(s): 12/31/15 Revision laminectomy discectomy posterior lumbar decompression fusion, transforiminal lumbar interbody fusion L5-S1 with cell saver, NIM cord monitoring. Pyloric surgery , low BACK SURGERIES x2, C-Sections x2. Past Anesthesia/Blood Transfusion Reactions: No Reported Reaction, Family History of Problems w/ Anesthesia Additional Past Anesthesia/Blood Transfusion Reaction / Comment(s): Pt has never recieved blood. Hx hallucinations in grandmother Past Psychological History: Anxiety, Depression Smoking Status: Current every day smoker Past Alcohol Use History: None Reported Past Drug Use History: Marijuana - Past Family History Father Family Medical History: Coronary Artery Disease (CAD), Myocardial Infarction (CT) Additional Family Medical History / Comment(s): Father has stents. Blood clots in heart. Abdominal aneurysm. Mother Family Medical History: Deep Vein Thrombosis (DVT) Additional Family Medical History / Comment(s): Mother has a bad back. Abdominal aneurysm. General Exam Limitations: no limitations General appearance: alert, in no apparent distress Head exam: Present: atraumatic, normocephalic Eye exam: Present: normal appearance, PERRL ENT exam: Present: normal exam Neck exam: Present: normal inspection. Absent: tenderness, meningismus Respiratory exam: Present: normal lung sounds bilaterally. Absent: respiratory distress, wheezes Cardiovascular Exam: Present: regular rate, normal rhythm GI/Abdominal exam: Present: soft. Absent: distended, tenderness, guarding Extremities exam: Present: other (Bruising to the fourth digit left foot no gross deformity) Neurological exam: Present: alert, oriented X3 Psychiatric exam: Present: normal affect, normal mood Course Vital Signs 03/28/23 10:29 Temperature 98.2 F Pulse Rate 88 Respiratory 20 Rate Blood Pressure 152/85 O2 Sat by Pulse 99 Oximetry Medical Decision Making - Medical Decision Making Was pt. sent in by a medical professional or institution (Dr. PA, BONDERIZER, urgent care, hospital, or [facility]...) When possible be specific @ -No Did you speak to anyone other than the patient for history (EMS, parent, family, police, friend...)? What history was obtained from this source @ -No Did you review nursing and triage notes (agree or disagree)? Why? @ -I reviewed and agree with nursing and triage notes Were old charts reviewed (outside hosp., previous admission, EMS record, old EKG, old radiological studies, urgent care reports/EKG's, [facility] records)? Report findings @ -No old charts were reviewed Differential Diagnosis (chest pain, altered mental status, abdominal pain women, abdominal pain men, vaginal bleeding, weakness, fever, dyspnea, syncope, headache, dizziness, GI bleed, back pain, seizure, CVA, palpatations, mental health, musculoskeletal)? @ -Differential Musculoskeletal Muscular strain, contusion, ligament sprain, fracture, arthritis, septic arthritis, bursitis, cellulitis, muscle spasm, nerve compression, DVT, arterial occlusion, herpes zoster, electrolyte abnormality, tumor.... This is not meant to be in all inclusive list EKG interpreted by me (3pts min.). @ -As above X-rays interpreted by me (1pt min.). @ -X-ray of the left foot, negative for displaced fracture no dislocation CT interpreted by me (1pt min.). @ -None done U/S interpreted by me (1pt. min.). @ -None done What testing was considered but not performed or refused? (CT, X-rays, U/S, labs)? Why? @ -None What meds were considered but not given or refused? Why? @ -None Did you discuss the management of the patient with other professionals (professionals i.e. , PA, BONDERIZER, lab, RT, psych nurse, social and political studies professor, attorney lawyer, teacher, training officer, manager of case)? Give summary @ -No Was smoking cessation discussed for >3mins.? @ -No Was critical care preformed (if so, how long)? @ -No Were there social determinants of health that impacted care today? How? (H omelessness, low income, unemployed, alcoholism, drug addiction, transportation, low edu. Level, literacy, decrease access to med. care, [place] [facility], rehab)? @ -No Was there de-escalation of care discussed even if they declined (Discuss DNR or withdrawal of care, Hospice)? DNR status @ -No What co-morbidities impacted this encounter? (DM, HTN, Smoking, COPD, CAD, Cancer, CVA, ARF, Chemo, Hep., AIDS, mental health diagnosis, sleep apnea, morbid obesity)? @ -None Was patient admitted / discharged? Hospital course, mention meds given and route, prescriptions, significant lab abnormalities, going to OR and other pertinent info. @ -[Patient placed in a postoperative shoe and will take Tylenol Motrin for pain. Undiagnosed new problem with uncertain prognosis? @ -No Drug Therapy requiring intensive monitoring for toxicity (Heparin, Nitro, Insulin, Cardizem)? @ -No Were any procedures done? @ -No Diagnosis/symptom? @ -Toe contusion Acute, or Chronic, or Acute on Chronic? @ -[Acute Uncomplicated (without systemic symptoms) or Complicated (systemic symptoms)? @ -default Side effects of treatment? @ -No Exacerbation, Progression, or Severe Exacerbation? @ -No Poses a threat to life or bodily function? How? (Chest pain, USA, CT, pneumonia, PE, COPD, DKA, ARF, appy, cholecystitis, CVA, Diverticulitis, Homicidal, Suicidal, threat to staff... and all critical care pts) @ -No Disposition Clinical Impression: Bruise of toe Disposition: HOME SELF-CARE Condition: Good Instructions (If sedation given, give patient instructions): Foot Contusion (ED) Is patient prescribed a controlled substance at d/c from ED?: No Referrals: Celeste Cheng III, MD [Primary Care Provider] - 1-2 days Time of Disposition: 11:06
== END 2023-03-28 11:17 | disposition home or self-care (01) ==
LOC: EC 10:24
DX: S90.122A Contusion of left lesser toe(s) without damage to nail, initial encounter (principal); J45.909 Unspecified asthma, uncomplicated; E78.5 Hyperlipidemia, unspecified; E07.9 Disorder of thyroid, unspecified; F32.A Depression, unspecified; F41.9 Anxiety disorder, unspecified; F17.200 Nicotine dependence, unspecified, uncomplicated; F12.90 Cannabis use, unspecified, uncomplicated; Z79.890 Hormone replacement therapy; Z79.899 Other long term (current) drug therapy; Z88.1 Allergy status to other antibiotic agents; X58.XXXA Exposure to other specified factors, initial encounter
CPT/HCPCS: 99283

== ENCOUNTER 2023-05-09 08:25 | Emergency (ER) | payer OTHER ==
[2023-05-09 08:38] LABS: Glucose,Whole Blood 381 mg/dL (70-110)
[2023-05-09] MEDS ORDERED: SODIUM CHLORIDE 0.9% 1,000 ML IV ONE (08:51)
--- NOTE | 2023-05-09 08:51 | ED ---
General Adult HPI - General Chief complaint: Recheck/Abnormal Lab/Rx Stated complaint: Hyperglycemia Time Seen by Provider: 05/09/23 08:30 Source: patient, old records reviewed Mode of arrival: ambulatory Limitations: no limitations - History of Present Illness Initial comments: This is a 37-year-old female presents emergency department stating that she is a diabetic and a smoker. Patient comes in today complaining that she lost her doctor because he stopped practicing. Patient states she's been out of her medications and she is also out of her thyroid meds per patient states for the last week she's thought her vision has been blurry though she has lost her glasses but she thinks it's blurrier than normal without her glasses. Patient also states she's been urinating quite a bit and she thinks is because her sugars high so she doesn't check it. Patient denies any fever chills or cough per patient denies any chest pain difficult breathing shortest breath per patient has any abdominal pain patient denies nausea vomiting diarrhea. - Related Data Home Medications Medication Instructions Recorded Confirmed Hydrocodone/Acetaminophen [[place] 1 tab PO TID PRN 06/03/20 05/09/23 5-325] Albuterol Sulfate [Proair Hfa] 2 puff INHALATION RT-Q6H PRN 07/03/21 05/09/23 Levothyroxine Sodium [Synthroid] 25 mcg PO DAILY 09/21/21 05/09/23 Ergocalciferol [Vitamin D2 (1250 1,250 mcg PO Q7D 04/28/22 05/09/23 Mcg = 15380 Iu)] Sertraline [Zoloft] 100 mg PO DAILY 10/19/22 05/09/23 Previous Rx's Medication Instructions Recorded Levothyroxine Sodium [Synthroid] 25 mcg PO DAILY #30 tab 05/09/23 Sertraline [Zoloft] 100 mg PO DAILY #30 tab 05/09/23 metFORMIN HCL [Glucophage] 500 mg PO ONCE #30 tab 05/09/23 Allergies Allergy/AdvReac Type Severity Reaction Status Date / Time clarithromycin [From Biaxin] AdvReac Severe Diarrhea Verified 05/09/23 09:00 Review of Systems ROS Statement: Those systems with pertinent positive or pertinent negative responses have been documented in the HPI. ROS Other: All systems not noted in ROS Statement are negative. 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 DDD, recurrent back pain. Hx stomach ulcers. Sinus Tachycardia. Headaches. Dizziness at times. Numbness in rig Varicose veins in right leg. History of Any Multi-Drug Resistant Organisms: None Reported Past Surgical History: Hernia Repair, Hysterectomy Additional Past Surgical History / Comment(s): 12/31/15 Revision laminectomy discectomy posterior lumbar decompression fusion, transforiminal lumbar interbody fusion L5-S1 with cell saver, NIM cord monitoring. Pyloric surgery , low BACK SURGERIES x2, C-Sections x2. Past Anesthesia/Blood Transfusion Reactions: No Reported Reaction, Family History of Problems w/ Anesthesia Additional Past Anesthesia/Blood Transfusion Reaction / Comment(s): Pt has never recieved blood. Hx hallucinations in grandmother Past Psychological History: Anxiety, Depression Smoking Status: Current every day smoker Past Alcohol Use History: None Reported Past Drug Use History: Marijuana - Past Family History Father Family Medical History: Coronary Artery Disease (CAD), Myocardial Infarction (CO) Additional Family Medical History / Comment(s): Father has stents. Blood clots in heart. Abdominal aneurysm. Mother Family Medical History: Deep Vein Thrombosis (DVT) Additional Family Medical History / Comment(s): Mother has a bad back. Abdominal aneurysm. General Exam - General Exam Comments Initial Comments: GENERAL: Patient is well-developed and well-nourished. Patient is nontoxic and well- hydrated and is in mild distress. ENT: Neck is soft and supple. No significant lymphadenopathy is noted. Oropharynx is clear. Moist mucous membranes. Neck has full range of motion without eliciting any pain. EYES: The sclera were anicteric and conjunctiva were pink and moist. Extraocular movements were intact and pupils were equal round and reactive to light. Eyelids were unremarkable. PULMONARY: Unlabored respirations. Good breath sounds bilaterally. No audible rales rhonchi or wheezing was noted. CARDIOVASCULAR: There is a regular rate and rhythm without any murmurs gallops or rubs. ABDOMEN: Soft and nontender with normal bowel sounds. SKIN: Skin is clear with no lesions or rashes and otherwise unremarkable. NEUROLOGIC: Patient is alert and oriented x3. Cranial nerves II through XII are grossly intact. Motor and sensory are also intact. Normal speech, volume and content. Symmetrical smile. MUSCULOSKELETAL: Normal extremities with adequate strength and full range of motion. LYMPHATICS: No significant lymphadenopathy is noted PSYCHIATRIC: Normal psychiatric evaluation. Limitations: no limitations Course Vital Signs 05/09/23 08:27 Temperature 98.2 F Pulse Rate 95 Respiratory 20 Rate Blood Pressure 162/114 O2 Sat by Pulse 99 Oximetry Medical Decision Making - Medical Decision Making EKG is interpreted by myself. EKG shows a sinus rhythm at 80 bpm AK interval 163 QRS is 88 QT interval 343 QTC is 379. Patient shows no ST segment elevation or depression. Was pt. sent in by a medical professional or institution (, MARTHA, DIRECTOR PHYSICAL, urgent care, hospital, or [place] [facility]...) When possible be specific @ -No Did you speak to anyone other than the patient for history (EMS, parent, family, police, friend...)? What history was obtained from this source @ -No Did you review nursing and triage notes (agree or disagree)? Why? @ -I reviewed and agree with nursing and triage notes Were old charts reviewed (outside hosp., previous admission, EMS record, old EKG, old radiological studies, urgent care reports/EKG's, [place] [facility] records)? Report findings @ -I reviewed prior charts and prior lab work on this patient Differential Diagnosis (chest pain, altered mental status, abdominal pain women, abdominal pain men, vaginal bleeding, weakness, fever, dyspnea, syncope, headache, dizziness, GI bleed, back pain, seizure, CVA, palpatations, mental health, musculoskeletal)? @ -Diabetes standpoint, diabetes type 2, EKG interpreted by me (3pts min.). @ -As above X-rays interpreted by me (1pt min.). @ -None done CT interpreted by me (1pt min.). @ -None done U/S interpreted by me (1pt. min.). @ -None done What testing was considered but not performed or refused? (CT, X-rays, U/S, labs)? Why? @ -None What meds were considered but not given or refused? Why? @ -None Did you discuss the management of the patient with other professionals (professionals i.e. , MARTHA, DIRECTOR PHYSICAL, lab, RT, psych nurse, social media editor, attorney lawyer, teacher, training officer, case operator)? Give summary @ -No Was smoking cessation discussed for >3mins.? @ -No Was critical care preformed (if so, how long)? @ -No Were there social determinants of health that impacted care today? How? (Homelessness, low income, unemployed, alcoholism, drug addiction, transportation, low edu. Level, literacy, decrease access to med. care, retirement, rehab)? @ -No Was there de-escalation of care discussed even if they declined (Discuss DNR or withdrawal of care, Hospice)? DNR status @ -No What co-morbidities impacted this encounter? (DM, HTN, Smoking, COPD, CAD, Cancer, CVA, ARF, Chemo, Hep., AIDS, mental health diagnosis, sleep apnea, morbid obesity)? @ -None Was patient admitted / discharged? Hospital course, mention meds given and route, prescriptions, significant lab abnormalities, going to OR and other pert inent info. @ -Patient's main reason for coming in his because she no longer has a primary medical refills on Synthroid and Zoloft and she knows her sugars been high and she has no one to follow-up with. Patient was given Humalog for her elevated sugar in the emergency department should be sent home on metformin and told to follow-up with primary medical care doctor. Patient states her vision is blurred but she doesn't have glasses constipation. She has scattered Glasses. Patient also get a refill on her Synthroid and Zoloft Undiagnosed new problem with uncertain prognosis? @ -No Drug Therapy requiring intensive monitoring for toxicity (Heparin, Nitro, Insulin, Cardizem)? @ -No Were any procedures done? @ -No Diagnosis/symptom? @ -Diabetes Acute, or Chronic, or Acute on Chronic? @ -Acute Uncomplicated (without systemic symptoms) or Complicated (systemic symptoms)? @ -Complicated Side effects of treatment? @ -No Exacerbation, Progression, or Severe Exacerbation? @ -No Poses a threat to life or bodily function? How? (Chest pain, [place], CO, pneumonia, PE, COPD, DKA, ARF, appy, cholecystitis, CVA, Diverticulitis, Homicidal, Suicidal, threat to staff... and all critical care pts) @ -No - Lab Data Result diagrams: 05/09/23 08:55 05/09/23 08:55 Lab Results 05/09/23 05/09/23 05/09/23 Range/Units 08:37 08:55 08:55 WBC 9.5 (3.8-10.6) k/uL RBC 5.71 H (3.80-5.40) m/uL Hgb 18.0 H (11.4-16.0) gm/dL Hct 50.3 H (34.0-46.0) % MCV 88.1 (80.0-100.0) fL MCH 31.5 (25.0-35.0) pg MCHC 35.8 (31.0-37.0) g/dL RDW 13.2 (11.5-15.5) % Plt Count 253 (150-450) k/uL MPV 8.5 Neutrophils % 65 % Lymphocytes % 27 % Monocytes % 4 % Eosinophils % 2 % Basophils % 0 % Neutrophils # 6.2 (1.3-7.7) k/uL Lymphocytes # 2.6 (1.0-4.8) k/uL Monocytes # 0.4 (0-1.0) k/uL Eosinophils # 0.2 (0-0.7) k/uL Basophils # 0.0 (0-0.2) k/uL Sodium 135 L (137-145) mmol/L Potassium 4.4 (3.5-5.1) mmol/L Chloride 98 (98-107) mmol/L Carbon Dioxide 26 (22-30) mmol/L Anion Gap 11 mmol/L BUN 8 (7-17) mg/dL Creatinine 0.49 L (0.52-1.04) mg/dL Est GFR (CKD-EPI)AfAm >90 (>60 ml/min/1.73 sqM) Est GFR (CKD-EPI)NonAf >90 (>60 ml/min/1.73 sqM) Glucose 382 H (74-99) mg/dL POC Glucose (mg/dL) 381 H (70-110) mg/dL POC Glu Clinical Training Coordinator ID Calcium 9.5 (8.4-10.2) mg/dL Magnesium 1.7 (1.6-2.3) mg/dL Total Bilirubin 0.7 (0.2-1.3) mg/dL AST 18 (14-36) U/L ALT 22 (4-34) U/L Alkaline Phosphatase 86 (38-126) U/L Total Protein 6.9 (6.3-8.2) g/dL Albumin 4.4 (3.5-5.0) g/dL TSH 4.530 (0.465-4.680) mIU/L Urine Color Urine Appearance (Clear) Urine pH (5.0-8.0) Ur Specific [place] (1.001-1.035) Urine Protein (Negative) Urine Glucose (UA) (Negative) Urine Ketones (Negative) Urine Blood (Negative) Urine Nitrite (Negative) Urine Bilirubin (Negative) Urine Urobilinogen (<2.0) mg/dL Ur Leukocyte Esterase (Negative) Acetone, Qual Negative (Negative) 05/09/23 Range/Units 08:57 WBC (3.8-10.6) k/uL RBC (3.80-5.40) m/uL Hgb (11.4-16.0) gm/dL Hct (34.0-46.0) % MCV (80.0-100.0) fL MCH (25.0-35.0) pg MCHC (31.0-37.0) g/dL RDW (11.5-15.5) % Plt Count (150-450) k/uL MPV Neutrophils % % Lymphocytes % % Monocytes % % Eosinophils % % Basophils % % Neutrophils # (1.3-7.7) k/uL Lymphocytes # (1.0-4.8) k/uL Monocytes # (0-1.0) k/uL Eosinophils # (0-0.7) k/uL Basophils # (0-0.2) k/uL Sodium (137-145) mmol/L Potassium (3.5-5.1) mmol/L Chloride (98-107) mmol/L Carbon Dioxide (22-30) mmol/L Anion Gap mmol/L BUN (7-17) mg/dL Creatinine (0.52-1.04) mg/dL Est GFR (CKD-EPI)AfAm (>60 ml/min/1.73 sqM) Est GFR (CKD-EPI)NonAf (>60 ml/min/1.73 sqM) Glucose (74-99) mg/dL POC Glucose (mg/dL) (70-110) mg/dL POC Glu Clinical Training Coordinator ID Calcium (8.4-10.2) mg/dL Magnesium (1.6-2.3) mg/dL Total Bilirubin (0.2-1.3) mg/dL AST (14-36) U/L ALT (4-34) U/L Alkaline Phosphatase (38-126) U/L Total Protein (6.3-8.2) g/dL Albumin (3.5-5.0) g/dL TSH (0.465-4.680) mIU/L Urine Color Light Yellow Urine Appearance Clear (Clear) Urine pH 5.5 (5.0-8.0) Ur Specific [place] 1.037 H (1.001-1.035) Urine Protein Negative (Negative) Urine Glucose (UA) 4+ H (Negative) Urine Ketones Negative (Negative) Urine Blood Negative (Negative) Urine Nitrite Negative (Negative) Urine Bilirubin Negative (Negative) Urine Urobilinogen <2.0 (<2.0) mg/dL Ur Leukocyte Esterase Negative (Negative) Acetone, Qual (Negative) Disposition Clinical Impression: New onset type 2 diabetes mellitus, Encounter for medication refill Disposition: HOME SELF-CARE Instructions (If sedation given, give patient instructions): Type 2 Diabetes in Adults: New Diagnosis (DC) Prescriptions: metFORMIN HCL [Glucophage] 500 mg PO ONCE #30 tab Levothyroxine Sodium [Synthroid] 25 mcg PO DAILY #30 tab Sertraline [Zoloft] 100 mg PO DAILY #30 tab Is patient prescribed a controlled substance at d/c from ED?: No Referrals: None,Stated [Primary Care Provider] - 1-2 days Time of Disposition: 10:30
[2023-05-09 09:14] LABS: Basophils % (A) 0 %; Eosinophils # (A) 0.2 k/uL (0-0.7); Eosinophils % (A) 2 %; HCT 50.3 % (34.0-46.0); Lymphocytes # (A) 2.6 k/uL (1.0-4.8); Lymphocytes % (A) 27 %; MCH 31.5 pg (25.0-35.0); MCHC 35.8 g/dL (31.0-37.0); MCV 88.1 fL (80.0-100.0); Mean Platelet Volume 8.5; Monocytes # (A) 0.4 k/uL (0-1.0); Monocytes % (A) 4 %; Neutrophils # (A) 6.2 k/uL (1.3-7.7); Neutrophils % (A) 65 %; Platelet Count 253 k/uL (150-450); RBC 5.71 m/uL (3.80-5.40); RDW 13.2 % (11.5-15.5); WBC 9.5 k/uL (3.8-10.6)
[2023-05-09 09:18] LABS: Appearance,Urine Clear (Clear); Bilirubin,Urine Negative (Negative); Blood,Urine Negative (Negative); Color,Urine Light Yellow; Glucose,Urine (UA) 4+ (Negative); Ketones,Urine Negative (Negative); Leukocyte Esterase,Urine Negative (Negative); Nitrite,Urine Negative (Negative); PH, Urine 5.5 (5.0-8.0); Protein,Urine Negative (Negative); Specific Gravity,Urine 1.037 (1.001-1.035); Urobilinogen,Urine <2.0 mg/dL (<2.0)
[2023-05-09 09:34] LABS: ALT 22 U/L (4-34); AST 18 U/L (14-36); African American GFR (CKD) >90 (>60 ml/min/1.73 sqM); Albumin 4.4 g/dL (3.5-5.0); Alkaline Phosphatase 86 U/L (38-126); Anion Gap 11 mmol/L; Blood Urea Nitrogen 8 mg/dL (7-17); Calcium 9.5 mg/dL (8.4-10.2); Carbon Dioxide 26 mmol/L (22-30); Chloride 98 mmol/L (98-107); Glucose 382 mg/dL (74-99); Magnesium 1.7 mg/dL (1.6-2.3); Non-African American GFR(CKD) >90 (>60 ml/min/1.73 sqM); Potassium 4.4 mmol/L (3.5-5.1); Sodium 135 mmol/L (137-145); Total Bilirubin 0.7 mg/dL (0.2-1.3); Total Protein 6.9 g/dL (6.3-8.2)
[2023-05-09] MEDS ORDERED: INSULIN ASPART (NovoLOG) 100 UNIT/ML VIAL SQ ONE (10:39)
[2023-05-09 11:14] LABS: Glucose,Whole Blood 311 mg/dL (70-110)
[2023-05-09 11:29] VITALS: BP 139/89; PULSE 88; RESP 17; TEMP 98
== END 2023-05-09 11:17 | disposition home or self-care (01) ==
LOC: EC 08:25
DX: E11.65 Type 2 diabetes mellitus with hyperglycemia (principal); Z76.0 Encounter for issue of repeat prescription; F17.200 Nicotine dependence, unspecified, uncomplicated; F12.90 Cannabis use, unspecified, uncomplicated; J45.909 Unspecified asthma, uncomplicated; E07.9 Disorder of thyroid, unspecified; F41.9 Anxiety disorder, unspecified; F32.A Depression, unspecified; Z79.890 Hormone replacement therapy; Z79.899 Other long term (current) drug therapy; Z88.8 Allergy status to other drugs, medicaments and biological substances
CPT/HCPCS: 36415; 80053; 81003; 82009; 83735; 84443; 85025; 93005; 99284